=== PATIENT | female | born 1985 | race Caucasian/White ===

== ENCOUNTER 2016-05-12 00:35 | Inpatient (IN) ==
[2016-05-12 01:04] LABS: Bilirubin,Urine Small (Negative); Blood,Urine Negative (Negative); Clarity,Urine Cloudy (Clear); Color,Urine Yellow (Yellow); Glucose,Urine (UA) Normal (Normal); Ketones,Urine Negative (Negative); Leukocyte Esterase,Urine Negative (Negative); Nitrite,Urine Negative (Negative); Protein,Urine Negative (Neg-Trace); Specific Gravity,Urine 1.025 (1.010-1.025); Urobilinogen,Urine Normal (Normal)
[2016-05-12 01:06] LABS: Bacteria,Urine None Seen per hpf (None-Few); Squamous Epithelial Cell,Urine Many per lpf (None-Few)
[2016-05-12 01:09] LABS: Amphetamine Screen,Urine Negative ng/mL (Cutoff=1000); Barbiturate Screen,Urine Negative ng/mL (Cutoff=200); Benzodiazepines Screen,Urine Negative ng/mL (Cutoff=200); Cannabinoid Screen,Urine Positive ng/mL (Cutoff = 50); Cocaine Screen,Urine Negative ng/mL (Cutoff= 300); Opiate Screen,Urine Negative ng/mL (Cutoff=300); Phencyclidine Screen,Urine Negative ng/mL (Cutoff=25)
[2016-05-12 01:18] LABS: Calcium Oxalate Crystals,Urine Present; Hyaline Casts,Urine None Seen per lpf (None-Few); Mucus,Urine Few (Few)
[2016-05-12 01:19] LABS: Basophils # 0.1 K/mcL (0.0-0.2); Basophils % 0.6 %; Eosinophils # 0.1 K/mcL (0.0-0.6); Eosinophils % 0.3 %; Hematocrit 39.4 % (35.3-44.9); Hemoglobin 13.4 g/dL (11.5-15.4); Immature Granulocytes % 0.6 % (0-4); Immature Platelets 4.2 % (1.1-6.1); Lymphocytes # 2.9 K/mcL (0.6-4.6); Lymphocytes % 17.7 %; Mean Corpuscular Hemoglobin 32.4 pg (28.0-33.3); Mean Corpuscular Volume 95.4 fL (83.0-100.0); Mean Platelet Volume 9.9 fL (9.4-12.4); Monocytes # 0.8 K/mcL (0.0-1.3); Neutrophils # 12.3 K/mcL (1.6-8.9); Platelet Count 320 K/mcL (140-400); Red Blood Count 4.13 M/mcL (3.82-4.97); Red Cell Distribution Width 13.2 % (11.5-14.5); Segmented Neutrophils % 75.8 %
[2016-05-12 01:33] LABS: BUN/Creatinine Ratio 23 (6-26); Blood Urea Nitrogen 14 mg/dL (7-20); Calcium 9.3 mg/dL (8.6-10.8); Carbon Dioxide 24 mEq/L (19-29); Chloride 104 mEq/L (98-109); Glucose 98 mg/dL (70-99); Osmolality,Calculated 288 (280-300); Potassium 3.4 mEq/L (3.5-4.5); Sodium 139 mEq/L (136-145); eGFR For African Americans > 60 (> 60); eGFR For Non-African Americans > 60 (> 60)
[2016-05-12 01:34] LABS: Acetaminophen < 1.0 mcg/mL (10-30); Ethanol < 10 mg/dL (0-10); Salicylate < 5.0 mg/dL (15-30)
--- NOTE | 2016-05-12 02:30 | Emergency Department Note ---
Disposition Clinical Impression: Acute psychosis, Suicidal ideation, Paranoia Disposition: Admitted As Inpatient Condition: Fair Time of Disposition: 04:15 Psych HPI - General Chief Complaint: ED Psychiatric Symptoms Stated Complaint: "Hearing Voices/Seeing Things/Out of Meds" Time Seen by Provider: 05/12/16 01:07 Source: patient Mode of arrival: ambulatory Limitations: no limitations Nursing Notes Reviewed: Yes Vital Signs Reviewed: Yes - History of Present Illness HPI Narrative: 30-year-old female history of depression presents to ED with suicidal ideation. Reports over the past several days she has been more depressed and currently is fed up with life. States she just wants to . She has no plan. Attempted suicide at the age of 16 taking multiple medications. Denies any access of guns at home. Reports issues with child custody. Her kids stay with her father more than with her. She also reports hearing voices but they are not telling her to herself. No history of this before. Denies any recent recreational drug use. She last used meth but was unsure of when. Believes it was more than 3 weeks ago. She is prescribed medications for depression but has not been taking it for the past several months. She is unable to tell me that the physician who prescribed it to her or the medications that she takes. She also reports losing track of time and associates this to her drug abuse in the past which includes cocaine, crack, heroin, meth. She otherwise denies any other physical complaints such as the recent illness, fevers, chest pain, shortness of breath, abdominal pain, or urinary symptoms. Denies any alcohol use today. Denies any overdosing on other medications. Pt complaint: suicidal ideation - Related Data Home Medications Medication Instructions Recorded Confirmed Buprenorphine HCl/Naloxone HCl 1 tab SL DAILY 06/07/15 08/11/15 [Suboxone 2 mg-0.5 mg Sl Film] Alprazolam [Xanax 1 MG Tablet] 1 mg PO TID 08/11/15 08/11/15 Dicyclomine [Bentyl] 20 mg PO QID 08/11/15 08/11/15 Previous Rx's Medication Instructions Recorded Promethazine [Phenergan] 25 mg PO Q6HR #10 tablet 08/14/15 Allergies Allergy/AdvReac Type Severity Reaction Status Date / Time Amoxicillin [From Amoxil] Allergy Rash Verified 05/12/16 00:45 haloperidol [From Haldol] Allergy Rash Verified 05/12/16 00:45 ketorolac [From Toradol] Allergy Rash Verified 05/12/16 00:45 Penicillins [PCN] Allergy Rash Verified 05/12/16 00:45 All systems ED: reviewed and negative except as stated. Constitutional: Denies: fever, chills Cardiovascular: Denies: chest pain Respiratory: Denies: cough, dyspnea Gastrointestinal: Denies: abdominal pain Genitourinary: Denies: urgency, dysuria Musculoskeletal: Denies: back pain, neck pain Neurological: Denies: headache Psychiatric: Reports: depression, suicidal thoughts, auditory hallucinations. Denies: homicidal thoughts Past Medical History - Past Medical History Attestation: Yes The following information was validated with the patient. Source: patient Medical history: Reports: asthma, other Surgical history: Reports: no surgical history Psychiatric history: Reports: anxiety, bipolar, depression [employer] history: Reports: endometriosis, other - Social History Smoking Status: Current every day smoker Smokeless Tobacco Status: No Alcohol use: Reports: none Drug use: Reports: marijuana, IVDU Physical Exam - General Limitations: no limitations General appearance: alert, in no apparent distress - Head Head exam: atraumatic, normocephalic, normal inspection - Eye Eye exam: Present: normal appearance, PERRL, EOMI - ENT ENT exam: normal exam, normal oropharynx, mucous membranes moist - Neck Neck exam: Present: normal inspection, full ROM, trachea midline - Chest Chest inspection: Present: normal inspection, symmetric chest wall rise - Respiratory Respiratory exam: Present: normal lung sounds bilaterally. Absent: respiratory distress, wheezes - Cardiovascular Cardiovascular exam: Present: regular rate, normal rhythm, normal heart sounds. Absent: systolic murmur, diastolic murmur - Abdominal Exam Abdominal exam: Present: soft, Non-Tender, normal bowel sounds. Absent: tenderness, distention, guarding, rebound, rigidity - Extremities Exam Extremities exam: Present: normal inspection, full ROM, normal capillary refill , other (Ecchymosis to the left calf from prior injury 1 month ago). Absent: tenderness, pedal edema, calf tenderness - Back Exam Back exam: Present: normal inspection, full ROM. Absent: tenderness, CVA tenderness (R), CVA tenderness (L), vertebral tenderness - Neurological Exam Neurological exam: Present: alert, oriented X3, CN II-XII intact - Expanded Neurological Exam Patient oriented to: Present: person, place, time Speech: Present: fluid speech Cranial nerves: EOM function (II, III, IV, ): Normal, facial sensation (V): Normal, facial palsy (VII): Normal, gag reflex (IX): Normal, spinal accessory function (XI): Normal, tongue deviation (XII): Normal Motor strength - LUE: 5/5 Motor strength - RUE: 5/5 Motor strength - LLE: 5/5 Motor strength - RLE: 5/5 - Psychiatric Psychiatric exam: Present: normal affect, depressed, anxious - Skin Skin exam: Present: warm, dry, intact, normal color Course Course Narrative: 30-year-old female presents with depression and suicidal ideation. Reports this has been ongoing for past several days. She is finally fed up with it would like to get help. Reports being admitted here in the hospital in the past. She is otherwise no acute distress. Lungs are clear auscultation bilaterally. Abdomen soft nontender nondistended. She moves all 4 extremities without any difficulty. We will get medical clearance and consult 1-A. She is cooperative and in agreement with plan. - Reevaluation(s) Reevaluation #1: Urine is positive for marijuana. Urine is not consistent with infection. Labs are otherwise unremarkable. She does have a mild leukocytosis but does not have any obvious signs of infection. She is afebrile. She is appropriate for 1 -A consultation for suicidal thoughts. Time: 02:34 Reevaluation #2: 1-A is at bedside for assessment Time: 03:46 - Consultations Consultation #1: 1-A plans to admit patient for SI, paranoia, and psychosis. Admission placed. Time: 04:15 Vital Signs Temperature 98.3 F 05/12/16 00:37 Pulse Rate 94 05/12/16 00:37 Respiratory Rate 16 05/12/16 00:37 Blood Pressure 144/92 05/12/16 00:37 O2 Sat by Pulse Oximetry 98 05/12/16 00:37 Temperature 97.9 F 05/12/16 04:32 Pulse Rate 99 05/12/16 04:32 Respiratory Rate 16 05/12/16 04:32 Blood Pressure 167/119 05/12/16 04:32 O2 Sat by Pulse Oximetry 98 05/12/16 00:37 Oxygen Delivery Oxygen Delivery Room Air Psych - Medical Records Medical records reviewed: Yes I reviewed the patient's medical records. - Lab Data Lab results reviewed: Yes I reviewed the patient's lab results. Result diagrams: 05/12/16 01:11 05/12/16 01:11 Lab Results 05/12/16 05/12/16 05/12/16 Range/Units 00:55 00:55 00:55 WBC (4.3-11.1) K/mcL RBC (3.82-4.97) M/mcL Hgb (11.5-15.4) g/dL Hct (35.3-44.9) % MCV (83.0-100.0) fL MCH (28.0-33.3) pg MCHC (31.6-35.5) g/dL RDW (11.5-14.5) % Plt Count (140-400) K/mcL MPV (9.4-12.4) fL Immature Gran % (0-4) % Seg Neutrophils % % Lymphocytes % % Monocytes % % Eosinophils % % Basophils % % Neutrophils # (1.6-8.9) K/mcL Lymphocytes # (0.6-4.6) K/mcL Monocytes # (0.0-1.3) K/mcL Eosinophils # (0.0-0.6) K/mcL Basophils # (0.0-0.2) K/mcL Immature Plt Fraction (1.1-6.1) % Sodium (136-145) mEq/L Potassium (3.5-4.5) mEq/L Chloride (98-109) mEq/L Carbon Dioxide (19-29) mEq/L BUN (7-20) mg/dL Creatinine (0.57-1.11) mg/dL Est GFR ( Amer) (> 60) Est GFR (Non-Af Amer) (> 60) BUN/Creatinine Ratio (6-26) Glucose (70-99) mg/dL Calculated Osmolality (280-300) Calcium (8.6-10.8) mg/dL Urine Color Yellow (Yellow) Urine Clarity Cloudy A (Clear) Urine pH 6.0 (5.0-8.0) pH Units Ur Specific [place] 1.025 (1.010-1.025) Urine Protein Negative (Neg-Trace) mg/dL Urine Glucose (UA) Normal (Normal) mg/dL Urine Ketones Negative (Negative) mg/dL Urine Blood Negative (Negative) Urine Nitrite Negative (Negative) Urine Bilirubin Small H (Negative) Urine Urobilinogen Normal (Normal) mg/dL Ur Leukocyte Esterase Negative (Negative) Urine Microscopic RBC 3-5 H (0-3) per hpf Urine Microscopic WBC 3-5 H (0-3) per hpf Ur Squamous Epith Cells Many H (None-Few) per lpf Calcium Oxalate Crystal Present Urine Bacteria None Seen (None-Few) per hpf Hyaline Casts None Seen (None-Few) per lpf Urine Mucus Few (Few) Urine Test Negative (Negative) Salicylates (15-30) mg/dL Urine Opiates Screen Negative (Lfrjpe=970) ng/mL Acetaminophen (10-30) mcg/mL Ur Barbiturates Screen Negative (Xkviec=572) ng/mL Ur Phencyclidine Scrn Negative (Cutoff=25) ng/mL Ur Amphetamines Screen Negative (Qcxqwj=6519) ng/mL U Benzodiazepines Scrn Negative (Uddbmm=496) ng/mL Urine Cocaine Screen Negative (Cutoff= 300) ng/mL U Marijuana (THC) Screen Positive H (Cutoff = 50) ng/mL Ethyl Alcohol (0-10) mg/dL 05/12/16 05/12/16 Range/Units 01:11 01:11 WBC 16.3 H (4.3-11.1) K/mcL RBC 4.13 (3.82-4.97) M/mcL Hgb 13.4 (11.5-15.4) g/dL Hct 39.4 (35.3-44.9) % MCV 95.4 (83.0-100.0) fL MCH 32.4 (28.0-33.3) pg MCHC 34.0 (31.6-35.5) g/dL RDW 13.2 (11.5-14.5) % Plt Count 320 (140-400) K/mcL MPV 9.9 (9.4-12.4) fL Immature Gran % 0.6 (0-4) % Seg Neutrophils % 75.8 % Lymphocytes % 17.7 % Monocytes % 5.0 % Eosinophils % 0.3 % Basophils % 0.6 % Neutrophils # 12.3 H (1.6-8.9) K/mcL Lymphocytes # 2.9 (0.6-4.6) K/mcL Monocytes # 0.8 (0.0-1.3) K/mcL Eosinophils # 0.1 (0.0-0.6) K/mcL Basophils # 0.1 (0.0-0.2) K/mcL Immature Plt Fraction 4.2 (1.1-6.1) % Sodium 139 (136-145) mEq/L Potassium 3.4 L (3.5-4.5) mEq/L Chloride 104 (98-109) mEq/L Carbon Dioxide 24 (19-29) mEq/L BUN 14 (7-20) mg/dL Creatinine 0.62 (0.57-1.11) mg/dL Est GFR ( Amer) > 60 (> 60) Est GFR (Non-Af Amer) > 60 (> 60) BUN/Creatinine Ratio 23 (6-26) Glucose 98 (70-99) mg/dL Calculated Osmolality 288 (280-300) Calcium 9.3 (8.6-10.8) mg/dL Urine Color (Yellow) Urine Clarity (Clear) Urine pH (5.0-8.0) pH Units Ur Specific [place] (1.010-1.025) Urine Protein (Neg-Trace) mg/dL Urine Glucose (UA) (Normal) mg/dL Urine Ketones (Negative) mg/dL Urine Blood (Negative) Urine Nitrite (Negative) Urine Bilirubin (Negative) Urine Urobilinogen (Normal) mg/dL Ur Leukocyte Esterase (Negative) Urine Microscopic RBC (0-3) per hpf Urine Microscopic WBC (0-3) per hpf Ur Squamous Epith Cells (None-Few) per lpf Calcium Oxalate Crystal Urine Bacteria (None-Few) per hpf Hyaline Casts (None-Few) per lpf Urine Mucus (Few) Urine Test (Negative) Salicylates < 5.0 L (15-30) mg/dL Urine Opiates Screen (Zihvdn=784) ng/mL Acetaminophen < 1.0 L (10-30) mcg/mL Ur Barbiturates Screen (Ayrufo=058) ng/mL Ur Phencyclidine Scrn (Cutoff=25) ng/mL Ur Amphetamines Screen (Wfepqj=2622) ng/mL U Benzodiazepines Scrn (Wegteo=918) ng/mL Urine Cocaine Screen (Cutoff= 300) ng/mL U Marijuana (THC) Screen (Cutoff = 50) ng/mL Ethyl Alcohol < 10 (0-10) mg/dL Psychiatric Medical Clearance - Medical Clearance Checklist Medical History: No Social History Section defined Current Vitals: Last Vital Signs Temp 97.9 F 05/12/16 04:32 Pulse 99 05/12/16 04:32 Resp 16 05/12/16 04:32 BP 167/119 05/12/16 04:32 Pulse Ox 98 05/12/16 00:37 Psychiatric Lab Panel: Drug Levels and Toxicity 05/12/16 05/12/16 00:55 01:11 Urine Opiates Screen Negative Acetaminophen < 1.0 L Ur Barbiturates Screen Negative Ur Phencyclidine Scrn Negative Ur Amphetamines Screen Negative U Benzodiazepines Scrn Negative Urine Cocaine Screen Negative U Marijuana (THC) Screen Positive H Ethyl Alcohol < 10 Abnormal Labs: Abnormal lab results WBC 16.3 K/mcL (4.3-11.1) H 05/12/16 01:11 Neutrophils # 12.3 K/mcL (1.6-8.9) H 05/12/16 01:11 Potassium 3.4 mEq/L (3.5-4.5) L 05/12/16 01:11 Urine Clarity Cloudy (Clear) A 05/12/16 00:55 Urine Bilirubin Small (Negative) H 05/12/16 00:55 Urine Microscopic RBC 3-5 per hpf (0-3) H 05/12/16 00:55 Urine Microscopic WBC 3-5 per hpf (0-3) H 05/12/16 00:55 Ur Squamous Epith Cells Many per lpf (None-Few) H 05/12/16 00:55 Salicylates < 5.0 mg/dL (15-30) L 05/12/16 01:11 Acetaminophen < 1.0 mcg/mL (10-30) L 05/12/16 01:11 U Marijuana (THC) Screen Positive ng/mL (Cutoff = 50) H 05/12/16 00:55 Statement of Medical Clearance: I have evaluated the patient, reviewed diagnostic information, and certify that the patient's medical condition is sufficiently stable that transfer to the psychiatric unit does not pose a significant risk of deterioration. Attestation Statement - Attestation Attestation: I, Jim Mario MD, personally performed a history and physical exam of the patient and discussed their management with the resident. I reviewed the resident's note and agree with the documented findings, medical decision making , and plan of care. 30-year-old female process to the emergency department with a complaint that she is out of her medications and she is having auditory hallucinations. She complains of being extremely paranoid. She has had suicidal thoughts but no definite plan or attempt. On examination patient is a well-developed well-nourished female in no acute distress. She is alert and oriented 3. There is no cyanosis or diaphoresis. She is cooperative but appears extremely anxious and paranoid. Breath sounds are clear and equal bilaterally. Heart regular rate and rhythm. Abdomen soft and nontender with normal bowel sounds. No gross focal neurological deficits. Skin is warm and dry with good color. Labs reviewed. 1A psych service was consulted and evaluated patient in the emergency department and patient is being admitted to .
[2016-05-12] MEDS ORDERED: hydrOXYzine pamoate 25 MG CAPSULE PO PRN (04:20)
[2016-05-12] MEDS ORDERED: Mag Hydrox/Al Hydrox/Simeth 30 ML UDC PO PRN (04:20)
[2016-05-12] MEDS ORDERED: MOM Conc 10 ML UD.LIQ PO PRN (04:20)
[2016-05-12] MEDS ORDERED: *HR* LORazepam 1 MG TABLET PO PRN (04:20)
[2016-05-12] MEDS ORDERED: traZODone 50 MG TABLET PO PRN (04:20)
[2016-05-12] MEDS ORDERED: *HR* LORazepam 2 MG/ML VIAL IM PRN (04:20)
[2016-05-12] MEDS ORDERED: Ibuprofen 400 MG TABLET PO PRN (04:20)
[2016-05-12] MEDS ORDERED: Ziprasidone 20 MG CAPSULE PO PRN (04:24)
[2016-05-12] MEDS ORDERED: Ziprasidone injection 20 MG/ML VIAL IM PRN (04:24)
[2016-05-12] MEDS: Nicotine 21 MG PATCH.TD24 TD SCH ×2 (08:56→11:13)
[2016-05-12] MEDS: Vitamin B Complex/Vit C/Vit E 1 EACH TABLET PO SCH (08:56)
--- NOTE | 2016-05-12 12:11 | Psychiatry History & Physical ---
Date of Encounter: 05/12/16 Time of Encounter: 12:09 History of Present Illness Patient Stated Chief Complaint: Suicidal, I need my medication Medicare Admission Attestation: For traditional Medicare patients the provided hospital inpatient services are reasonable and necessary and in the case of services not specified as inpatient -only under 42 CFR 419.22 (n), that they are appropriately provided as inpatient services in accordance 42 CFR 412.3. For Critical [facility] the patient may reasonably be expected to be discharged or transferred to a hospital within 96 hours after admission to the Critical [facility]. Admitted From: Emergency Dept History of Present Illness: Ms. Lorenzana is a 30 year old female admitted from the emergency department for evaluation suicidal ideation and auditory hallucination depending on compliance with treatment and medication. Patient has a history of psychiatric treatment and substance abuse and was admitted to this hospital in 2005 was diagnosis of polysubstance dependence including heroin Vicodin and Xanax, cannabis and cocaine subcutaneous also personality disorder and she was stabilized and discharged on medication but did not follow or comply. She was diagnosed with mood disorder and was treated was Risperdal and trazodone. Patient has history of aggressive behavior and violence she was agitated in emergency room verbally abusive to staff and when she was admitted to unit she was throwing chairs and windows and needed to be medicated and monitored one-on-one. To keep her safe. She was uncooperative was assessment and would not answer questions and become irritable and impulsive. Past Med Surg Social Fam HX - Past Medical History Medical history: asthma, other - Past Psychiatric History Psychiatric history: Reports: bipolar, previous psychiatric hospitalization, other (Substance abuse, opiates, marijuana, benzodiazepine, methamphetamine) Past psychiatric history details: Hospitalized 12/28/2005 for mood disorder and polysubstance dependence Family psychiatric history: Unknown Family History of Suicide: Unknown - Past Surgical History Surgical History: no surgical history - Social History Smoking Status: Current every day smoker Smokeless Tobacco Status: No Alcohol use: none Drug use: marijuana, IVDU Medications & Allergies Alprazolam [Xanax 1 MG Tablet] 1 mg PO TID 08/11/15 [History] Allergies Amoxicillin [From Amoxil] Allergy (Verified 05/12/16 00:45) Rash haloperidol [From Haldol] Allergy (Verified 05/12/16 00:45) Rash ketorolac [From Toradol] Allergy (Verified 05/12/16 00:45) Rash Penicillins [PCN] Allergy (Verified 05/12/16 00:45) Rash Review of Systems Psychiatric: Reports: suicidal ideation, auditory hallucinations, mood swings Mental Status Exam Patient orientation: Yes Person, Yes Place Level of alertness: Sedated Patient appearance: Unkempt, Disheveled Behavior: anxious, agitated, hostile, uncooperative, suspicious, impulsive Psychomotor activity: Increased Eye contact: Fleeting Contact Mood description: Anxious, Labile, Irritable Affect description: labile, dysphoric, anxious Speech pattern: Normal rate, Normal rhythm, Normal tone, Limited Speech volume: Normal Thought process: Circumstantial, Tangential, Thought Blocking, Slowed Thinking Thought content: Yes Suicidal ideation, No Homicidal ideation, No Overt delusions, Yes Paranoid delusion Perceptual disturbances: Yes Auditory hallucinations, No Visual hallucinations Attention span: Unable to Focus Memory description: Immediate Impaired, Recent Impaired, Remote Impaired Patient reliability: Not Reliable Historian Intelligence estimate: Average Judgment: Limited Insight: Partial Results - Vital Signs Vital signs: Temp Pulse Resp BP Pulse Ox 98.2 F 87 18 131/95 98 05/12/16 09:00 05/12/16 09:00 05/12/16 09:00 05/12/16 09:00 05/12/16 00:37 - Labs Labs: Laboratory Last Values WBC 16.3 K/mcL (4.3-11.1) H 05/12/16 01:11 RBC 4.13 M/mcL (3.82-4.97) 05/12/16 01:11 Hgb 13.4 g/dL (11.5-15.4) 05/12/16 01:11 Hct 39.4 % (35.3-44.9) 05/12/16 01:11 MCV 95.4 fL (83.0-100.0) 05/12/16 01:11 MCH 32.4 pg (28.0-33.3) 05/12/16 01:11 MCHC 34.0 g/dL (31.6-35.5) 05/12/16 01:11 RDW 13.2 % (11.5-14.5) 05/12/16 01:11 Plt Count 320 K/mcL (140-400) 05/12/16 01:11 MPV 9.9 fL (9.4-12.4) 05/12/16 01:11 Immature Gran % 0.6 % (0-4) 05/12/16 01:11 Seg Neutrophils % 75.8 % 05/12/16 01:11 Lymphocytes % 17.7 % 05/12/16 01:11 Monocytes % 5.0 % 05/12/16 01:11 Eosinophils % 0.3 % 05/12/16 01:11 Basophils % 0.6 % 05/12/16 01:11 Neutrophils # 12.3 K/mcL (1.6-8.9) H 05/12/16 01:11 Lymphocytes # 2.9 K/mcL (0.6-4.6) 05/12/16 01:11 Monocytes # 0.8 K/mcL (0.0-1.3) 05/12/16 01:11 Eosinophils # 0.1 K/mcL (0.0-0.6) 05/12/16 01:11 Basophils # 0.1 K/mcL (0.0-0.2) 05/12/16 01:11 Immature Plt Fraction 4.2 % (1.1-6.1) 05/12/16 01:11 Sodium 139 mEq/L (136-145) 05/12/16 01:11 Potassium 3.4 mEq/L (3.5-4.5) L 05/12/16 01:11 Chloride 104 mEq/L (98-109) 05/12/16 01:11 Carbon Dioxide 24 mEq/L (19-29) 05/12/16 01:11 BUN 14 mg/dL (7-20) 05/12/16 01:11 Creatinine 0.62 mg/dL (0.57-1.11) 05/12/16 01:11 Est GFR ( Amer) > 60 (> 60) 05/12/16 01:11 Est GFR (Non-Af Amer) > 60 (> 60) 05/12/16 01:11 BUN/Creatinine Ratio 23 (6-26) 05/12/16 01:11 Glucose 98 mg/dL (70-99) 05/12/16 01:11 Calculated Osmolality 288 (280-300) 05/12/16 01:11 Calcium 9.3 mg/dL (8.6-10.8) 05/12/16 01:11 Urine Color Yellow (Yellow) 05/12/16 00:55 Urine Clarity Cloudy (Clear) A 05/12/16 00:55 Urine pH 6.0 pH Units (5.0-8.0) 05/12/16 00:55 Ur Specific [place]va 1.025 (1.010-1.025) 05/12/16 00:55 Urine Protein Negative mg/dL (Neg-Trace) 05/12/16 00:55 Urine Glucose (UA) Normal mg/dL (Normal) 05/12/16 00:55 Urine Ketones Negative mg/dL (Negative) 05/12/16 00:55 Urine Blood Negative (Negative) 05/12/16 00:55 Urine Nitrite Negative (Negative) 05/12/16 00:55 Urine Bilirubin Small (Negative) H 05/12/16 00:55 Urine Urobilinogen Normal mg/dL (Normal) 05/12/16 00:55 Ur Leukocyte Esterase Negative (Negative) 05/12/16 00:55 Urine Microscopic RBC 3-5 per hpf (0-3) H 05/12/16 00:55 Urine Microscopic WBC 3-5 per hpf (0-3) H 05/12/16 00:55 Ur Squamous Epith Cells Many per lpf (None-Few) H 05/12/16 00:55 Calcium Oxalate Crystal Present 05/12/16 00:55 Urine Bacteria None Seen per hpf (None-Few) 05/12/16 00:55 Hyaline Casts None Seen per lpf (None-Few) 05/12/16 00:55 Urine Mucus Few (Few) 05/12/16 00:55 Urine Test Negative (Negative) 05/12/16 00:55 Salicylates < 5.0 mg/dL (15-30) L 05/12/16 01:11 Urine Opiates Screen Negative ng/mL (Rejlzv=680) 05/12/16 00:55 Acetaminophen < 1.0 mcg/mL (10-30) L 05/12/16 01:11 Ur Barbiturates Screen Negative ng/mL (Glkpbj=848) 05/12/16 00:55 Ur Phencyclidine Scrn Negative ng/mL (Cutoff=25) 05/12/16 00:55 Ur Amphetamines Screen Negative ng/mL (Dajwgk=0399) 05/12/16 00:55 U Benzodiazepines Scrn Negative ng/mL (Iozllj=408) 05/12/16 00:55 Urine Cocaine Screen Negative ng/mL (Cutoff= 300) 05/12/16 00:55 U Marijuana (THC) Screen Positive ng/mL (Cutoff = 50) H 05/12/16 00:55 Ethyl Alcohol < 10 mg/dL (0-10) 05/12/16 01:11 Assessment and Plan (1) Mood disorder with psychosis Current visit: Yes Status: Acute Plan: Admit inpatient for safety and stabilization, Close observation, Suicide Precautions per unit protocol, Encourage participation in unit milieu, Group Therapy, Monitor sleep, Monitor appetite Additional Plan: Chetan verify medication from the pharmacy and restarted them. Patient is uncooperative and agitated and she would be kept safe by one on one monitor. Medical complaints would be addressed by medical consult. Risks, benefits, side effects, alternatives discussed w/pt: Yes Patient agreeable to treatment: No (Uncooperative and agitated) Estimated Length of Stay (Days): 5 (2) Polysubstance dependence including opioid type drug, continuous use Current visit: Yes Status: Acute Plan: Admit inpatient for safety and stabilization, Close observation, Suicide Precautions per unit protocol, Encourage participation in unit milieu, Group Therapy, Monitor sleep, Monitor appetite Risks, benefits, side effects, alternatives discussed w/pt: Yes Patient agreeable to treatment: No ( Uncooperative and agitated)
[2016-05-12] MEDS ORDERED: Nicotine 2 MG GUM BC PRN (12:51)
[2016-05-12] MEDS: ALPRAZolam 1 MG TABLET PO PRN ×2 (12:54→17:59)
[2016-05-12] MEDS: Gabapentin 400 MG CAPSULE PO SCH ×2 (17:05→21:08)
--- NOTE | 2016-05-12 17:57 | Internal Medicine Consult Note ---
Date of Encounter: 05/12/16 Time of Encounter: 17:54 - Assessment and Plan (1) Right leg pain Current Visit: Yes Status: Acute Assessment and plan: We will obtain right lower extremity venous Doppler to rule out DVT. Patient has a large bruise on the back of her right leg indicating prior trauma which could have caused a DVT. (2) Abdominal pain Current Visit: No Status: Acute Assessment and plan: Patient reports what appears to be chronic abdominal pain, possibly related to menses. We will monitor. I will obtain LFTs and lipase level. Abdominal exam is benign, we will continue to monitor. No imaging needed at this time. Qualifiers: Abdominal location: generalized Qualified Code(s): R10.84 - Generalized abdominal pain (3) DVT prophylaxis Current Visit: No Status: Acute Assessment and plan: Ambulate in the hallway (4) Acute psychosis Current Visit: Yes Status: Acute Assessment and plan: Management per psychiatry. (5) Tobacco abuse Current Visit: Yes Status: Acute Assessment and plan: She is receiving nicotine replacement therapy. Internal Medicine - CN: HPI - Data of Consult Patient: new to practice Consult date: 05/12/16 Requesting Physician: Theodore Fortune MD - Consult Narrative Reason for consult: Leg pain History of present illness: Ms. Lorenzana is a 30 year old female admitted to the psychiatric service for suicidal ideation. Today she complained of right lower extremity pain. The patient is currently awake and interactive but quite sedated and therefore history obtained from the patient is limited. She says that she has severe pain in the right lower leg. She has had it for 2 weeks ever since she bumped her leg against a metal object. She noted some mild associated swelling. She also reports lower abdominal pain which she described to the nurse as if she was going to get her period. She reports burning with urination. Denies nausea vomiting diarrhea. A 10 point review of systems was limited by patient's sedation. Per psychiatric documentation the patient was agitated and belligerent and she required sedation. Family history was limited due to sedation Social history patient denies alcohol, admits to smoking one pack of cigarettes a day. Past Med Surg Social Fam HX - Past Medical History Medical history: asthma, other Psychiatric history: bipolar, previous psychiatric hospitalization, other ( Substance abuse, opiates, marijuana, benzodiazepine, methamphetamine) - Past Surgical History Surgical History: no surgical history - Social History Smoking Status: Current every day smoker Smokeless Tobacco Status: No Alcohol use: none Drug use: marijuana, IVDU Internal Medicine - CN: Meds Alprazolam [Xanax 1 MG Tablet] 1 mg PO BID 08/11/15 [History] Alprazolam [Xanax 1 MG Tablet] 1.5 mg PO HS 05/12/16 [History] Dicyclomine [Bentyl] 20 mg PO QID PRN 05/12/16 [History] Gabapentin [Neurontin] 800 mg PO TID 05/12/16 [History] HydrOXYzine Pamoate [Vistaril] 50 mg PO Q6H PRN 05/12/16 [History] Allergies Amoxicillin [From Amoxil] Allergy (Verified 05/12/16 00:45) Rash haloperidol [From Haldol] Allergy (Verified 05/12/16 00:45) Rash ketorolac [From Toradol] Allergy (Verified 05/12/16 00:45) Rash Penicillins [PCN] Allergy (Verified 05/12/16 00:45) Rash Internal Medicine - CN: Exam - Constitutional Vitals: Temp Pulse Resp BP Pulse Ox 98.2 F 87 18 131/95 98 05/12/16 09:00 05/12/16 09:00 05/12/16 09:00 05/12/16 09:00 05/12/16 00:37 General appearance IM: Present: A&O X 3 Exam: Appears sluggish and sedated - Head Head exam: Present: atraumatic - Eye Eye exam: Present: EOMI, PERRL. Absent: scleral icterus - Cardiovascular Cardiovascular exam IM: Present: RRR, +S1, +S2. Absent: systolic murmur - GI/Abdominal GI/Abdominal exam IM: Present: normal bowel sounds, soft, no peritoneal signs. Absent: hepatomegaly, mass, rebound - Additional comments: No suprapubic tenderness - Extremities Exam Extremities exam IM: Present: calf tenderness (Right calf tenderness palpation. A 6 x 4 cm bruise is present on the right lower leg.) Internal Medicine - CN: Reslt - Labs CBC & Chem 7: 05/12/16 01:11 05/12/16 01:11 Consult Discharge Plan - Plan Referrals: NO,PCP [Primary Care Provider] -
[2016-05-12 19:11] LABS: Albumin/Globulin Ratio 1.3 (1.1-2.2); Bilirubin,Direct 0.2 mg/dL (0.0-0.5); Bilirubin,Indirect 0.6 mg/dL (0.0-1.2); Bilirubin,Total 0.8 mg/dL (0.2-1.2); Globulin 3.2 g/dL (2.4-3.5); Total Protein 7.2 g/dL (6.0-8.3)
[2016-05-12 23:18] LABS: Bilirubin,Urine Small (Negative); Blood,Urine Negative (Negative); Clarity,Urine Cloudy (Clear); Color,Urine Dark Yellow (Yellow); Glucose,Urine (UA) Normal (Normal); Ketones,Urine Negative (Negative); Leukocyte Esterase,Urine Negative (Negative); Nitrite,Urine Negative (Negative); Protein,Urine Trace mg/dL (Neg-Trace); Specific Gravity,Urine 1.025 (1.010-1.025); Urobilinogen,Urine Normal (Normal)
[2016-05-12 23:20] LABS: Bacteria,Urine Moderate per hpf (None-Few); Squamous Epithelial Cell,Urine Many per lpf (None-Few)
[2016-05-13] MEDS: ALPRAZolam 1 MG TABLET PO PRN ×2 (04:57→10:38)
[2016-05-13] MEDS: Vitamin B Complex/Vit C/Vit E 1 EACH TABLET PO SCH (08:32)
[2016-05-13 09:25] VITALS: BP 115/83
--- NOTE | 2016-05-13 11:37 | Discharge Summary ---
Date of Encounter: 05/13/16 Time of Encounter: 11:30 Diagnosis - Discharge Diagnosis (1) Mood disorder with psychosis Status: Acute (2) Polysubstance dependence including opioid type drug, continuous use Status: Acute Medications - Discharge Medications Prescriptions: Alprazolam [Xanax 1 MG Tablet] 1 mg PO BID #30 tablet Gabapentin [Neurontin] 600 mg PO BID #60 capsule HydrOXYzine Pamoate [Vistaril] 50 mg PO Q6H PRN #60 capsule PRN Reason: Anxiety Dicyclomine [Bentyl] 20 mg PO QID PRN 05/12/16 [History] Alprazolam [Xanax 1 MG Tablet] 1 mg PO BID #30 tablet 05/13/16 [Rx] Gabapentin [Neurontin] 600 mg PO BID #60 capsule 05/13/16 [Rx] HydrOXYzine Pamoate [Vistaril] 50 mg PO Q6H PRN #60 capsule 05/13/16 [Rx] Vitamin B Complex/Vit C/Vit E [Stresstab] 1 each PO DAILY tablet 05/13/16 [Rx] Allergies Amoxicillin [From Amoxil] Allergy (Verified 05/12/16 00:45) Rash haloperidol [From Haldol] Allergy (Verified 05/12/16 00:45) Rash ketorolac [From Toradol] Allergy (Verified 05/12/16 00:45) Rash Penicillins [PCN] Allergy (Verified 05/12/16 00:45) Rash Results Procedures and tests throughout hospitalization: Completed Lab Orders Category Date Time Status LFTs [Hepatic Panel] Stat Lab 05/12/16 18:31 Completed Lipase Stat Lab 05/12/16 18:31 Completed Urinalysis Reflex Cult & Micro [URIN] Stat Lab 05/12/16 22:17 Completed Provider Date of admission: 05/12/16 04:17 Primary care physician: PCP NO Discharging clinician: Theodore Fortune Assessment and Plan - Patient/Caregiver Discharge Instructions Activity: resume usual activities as tolerated Diet: regular diet - Follow up Plan Follow up with: Richi Matthew [Outside] - 05/22/16 1:00 pm (The above appointment is with Elizabeth Flores, counselor. When you come to your first appointment, you will have an orientation to the agency and you will meet with a counselor. Please bring the following with you to your first visit to the clinic: 1) proof of household income (two consecutive pay stubs, social security award letter, bank statement, statement letter from [facility], child support statement, IRS 1040 or W2 form, or a statement from the person who financially supports you stating they help provide for your basic needs), 2) proof of residency (drivers license, a piece of mail showing your address, a statement from person you live with verifying you live at their address), 3) your social security number, and 4) your insurance card (if you have commercial insurance you must call to obtain a prior authorization number before you arrive to your first appointment). If you do not bring these items, you will not be seen.) Pedro Long, PAC [Physician Crew Lead] - (The above appointment is with Pedro Long.) Functional capacity at discharge: independent ambulation Overall status at discharge: Stable Disposition: Home, Self-Care Hospital Course Hospital course: Ms. Lorenzana is a 30 year old female admitted from the emergency department for acute psychosis and agitation and paranoia and noncompliance with medication in addition to abusing drugs including methamphetamine and marijuana. For details of admission see h&p On the unit the patient was agitated and destructive, she was out of control required. one on one monitoring and medication to control her behavior. Patient medication review and restarted she was able to sleep became more cooperative she was making some delusional statements and paranoid statements but refused to be placed on antipsychotics. She had some physical complaints that were addressed by medical consult. Prior to discharge patient was medically stable compliant with medication and denied any suicidal ideation or hallucinations and was cooperative and her behavior was appropriate and her discharge plans were completed. Patient reached maximum hospital benefits and was safe to discharge. - Time Spent with Patient Total time spent providing and/or coordinating discharge services: Greater than 30 minutes Quality - Multiple Antipsychotics Patient discharged on 2 or more antipsychotic medications: No Procedures - Procedures Procedures: Medication Management, Crisis Stabilization, Supportive Therapy, Group Therapy, Psychoeducational Therapy Mental Status Exam - Mental Status Exam Patient orientation: Yes Person, Yes Time, Yes Place Level of alertness: Alert Patient appearance: Appropriate, Well Groomed Behavior: calm, cooperative, anxious, hostile, uncooperative Psychomotor activity: Increased Eye contact: Minimal Contact Mood description: Euthymic/stable, Anxious, Labile Affect description: congruent with mood, labile, dysphoric, anxious Speech pattern: Normal rate, Normal rhythm, Normal tone, Limited Speech Volume: Normal Thought process: Circumstantial, Tangential, Thought Blocking Thought Content: No Suicidal ideation, No Homicidal ideation, No Overt delusions Perceptual Disturbances: No Auditory hallucinations, No Visual hallucinations Judgment: Limited Insight: Partial
--- NOTE | 2016-05-13 15:29 | Venous Imaging Report ---
LE Venous Duplex Patient Name:Felisha Lorenzana Order Number:[id number] Procedure Date:05/12/2016 Date:1985Age:30 yrs Gender:Female Location:[facility] Room #: 1A41 Managed Care Provider:Fabienne Jon RDCS Referring MD:Aram Brody MD high school learning support teacher:None Reading MD:Zev Costa MD , FACS Primary Indications:Pain in limb Secondary Indications: Impressions: Right lower extremity: normal superficial and deep exam. Recommendations: Preliminary given to Pt RNKem. Findings Venous Duplex Results: Right: Venous imaging of the lower extremity reveals full patency and normal vessel compressibility of the right superficial femoral, right popliteal, right posterior tibial, right peroneal, right great saphenous and right lesser saphenous. Doppler signals in the evaluated veins were normal. The right distal iliac and right common femoral veins were not assessed. Lower Extremity Venous Duplex Side Vein Compress Spontaneous Flow Augment Diameter (cm) Depth (cm) Right Distal Iliac Right Common Femoral Right Superficial Femoral Normal yes Phasic yes Right Popliteal Normal yes Phasic yes Right Posterior Tibial Normal yes Phasic yes Right Peroneal Normal yes Phasic yes Right Great Saphenous Normal yes Phasic yes Right Lesser Saphenous Normal yes Phasic yes Updated by Zev Costa MD, FACS on 05/13/2016 3:24:54 PM Zev Costa MD electronically signed on 05/13/2016 3:25:18 PM with status of Final
[2016-05-13] MEDS ORDERED: Gabapentin 300 MG CAPSULE PO SCH (21:00)
== END 2016-05-13 13:35 | disposition home or self-care (01) | DRG 754 ==
LOC: EMEROO 00:35 → 1ANU 04:15
PROVIDERS: ADMIT Psychiatry & Neurology Psychiatry; ATTEND Psychiatry & Neurology Psychiatry

== ENCOUNTER 2016-05-19 10:08 | Inpatient (IN) ==
[2016-05-19 10:58] LABS: Bilirubin,Urine Negative (Negative); Blood,Urine Negative (Negative); Clarity,Urine Clear (Clear); Color,Urine Yellow (Yellow); Glucose,Urine (UA) Normal (Normal); Ketones,Urine Negative (Negative); Leukocyte Esterase,Urine Negative (Negative); Nitrite,Urine Negative (Negative); PH,Urine 6.5 pH Units (5.0-8.0); Protein,Urine Negative (Neg-Trace); Specific Gravity,Urine 1.008 (1.010-1.025); Urobilinogen,Urine Normal (Normal)
[2016-05-19 11:05] LABS: Amphetamine Screen,Urine Negative ng/mL (Cutoff=1000); Barbiturate Screen,Urine Negative ng/mL (Cutoff=200); Benzodiazepines Screen,Urine Positive ng/mL (Cutoff=200); Cannabinoid Screen,Urine Positive ng/mL (Cutoff = 50); Cocaine Screen,Urine Negative ng/mL (Cutoff= 300); Opiate Screen,Urine Negative ng/mL (Cutoff=300); Phencyclidine Screen,Urine Negative ng/mL (Cutoff=25)
[2016-05-19 11:10] LABS: Basophils # 0.1 K/mcL (0.0-0.2); Basophils % 0.7 %; Eosinophils % 0.3 %; Hematocrit 41.9 % (35.3-44.9); Hemoglobin 14.4 g/dL (11.5-15.4); Immature Granulocytes % 0.4 % (0-4); Lymphocytes # 1.7 K/mcL (0.6-4.6); Lymphocytes % 17.9 %; Mean Corpuscular HGB Conc 34.4 g/dL (31.6-35.5); Mean Corpuscular Hemoglobin 32.4 pg (28.0-33.3); Mean Corpuscular Volume 94.2 fL (83.0-100.0); Mean Platelet Volume 9.6 fL (9.4-12.4); Monocytes # 0.5 K/mcL (0.0-1.3); Monocytes % 5.7 %; Platelet Count 280 K/mcL (140-400); Red Blood Count 4.45 M/mcL (3.82-4.97); Red Cell Distribution Width 12.8 % (11.5-14.5)
--- NOTE | 2016-05-19 11:19 | Emergency Department Note ---
START Narrative - START START: Patient presents from home with her mother for evaluation of altered mental status, paranoia and dysuria. The patient appears intoxicated and or confused. She is unable to provide a good history at this time. She complains of dysuria and suprapubic abdominal pain which has been present for several days. She was partially evaluated for this a few days ago, but ended up eloping. Patient is unable to describe the pain or rate the pain. She denies fever, chills, nausea or vomiting. She is not sure when her last period was. Her mother states that she has been acting very paranoid and bizarre for the past three weeks. The mother goes on to say that the patient came to her house this morning acting very paranoid and in a short amount of time it took for the mother to drive a child to school and return home, the patient had taken a knife to her wrist and left a elieser. The mother states that she is very surprised that he patient did not cut her arm as the knives were brand-new. The mother goes on to say that the patient has been showing signs of paranoia and psychosis for several years but it has been much more severe and more frequent over the past three weeks. She states that the patient has a history of drug abuse, both prescription and street drugs. Most recently, the patient had a three day meth binge, which seems to have prompted a lot of her current problems. It took a great deal of discussion to get the patient to cooperate and change into a hospital gown. Ultimately, labs will need to be drawn. A urine sample has been provided. Orders have been entered and the case has been discussed with the 11:00 attending, Dr. Phoebe Malone. She will take over care of this patient.
[2016-05-19 11:24] LABS: Alanine Aminotransferase 9 Units/L (0-55); Albumin 4.2 g/dL (3.5-5.0); Albumin/Globulin Ratio 1.2 (1.1-2.2); Alkaline Phosphatase 61 Units/L (38-126); Aspartate Amino Transferase 10 Units/L (5-34); BUN/Creatinine Ratio 16 (6-26); Bilirubin,Direct 0.3 mg/dL (0.0-0.5); Bilirubin,Indirect 0.5 mg/dL (0.0-1.2); Bilirubin,Total 0.8 mg/dL (0.2-1.2); Blood Urea Nitrogen 11 mg/dL (7-20); Calcium 9.8 mg/dL (8.6-10.8); Carbon Dioxide 22 mEq/L (19-29); Chloride 105 mEq/L (98-109); Globulin 3.5 g/dL (2.4-3.5); Glucose 108 mg/dL (70-99); Osmolality,Calculated 290 (280-300); Potassium 3.7 mEq/L (3.5-4.5); Sodium 140 mEq/L (136-145); Total Protein 7.7 g/dL (6.0-8.3); eGFR For African Americans > 60 (> 60); eGFR For Non-African Americans > 60 (> 60)
[2016-05-19 11:25] LABS: Acetaminophen < 1.0 mcg/mL (10-30); Ethanol < 10 mg/dL (0-10); Salicylate < 5.0 mg/dL (15-30)
[2016-05-19 11:43] LABS: Thyroid Stimulating Hormone 0.917 mcIU/mL (0.350-4.840)
--- NOTE | 2016-05-19 12:28 | Emergency Department Note ---
Disposition Clinical Impression: Suicidal ideation Disposition: Admitted As Inpatient Condition: Good Referrals: NO,PCP [Primary Care Provider] - Forms: ED Satisfaction Letter Time of Disposition: 15:53 General Adult HPI - General Chief complaint: ED Psychiatric Symptoms Stated complaint: AMS, psych eval Time Seen by Provider: 05/19/16 10:20 Source: patient, family Limitations: no limitations Nursing Notes Reviewed: Yes Vital Signs Reviewed: Yes - History of Present Illness HPI Narrative: 30 year old female with family hx of paranoia/schizophrenia elviats with her mother today.. Mother states that she has been paranois and has mutliple drug abuse issues and had a 3 day meth binge which has excebrated her symptoms and today attempted to hurt herself with a dull knife on her wrist but was unsuccessful. She has had multiple pysch admissions. Mother is concerend she is a danger to herself and those around her. PAtinet states she did not try to hurt her self but is experienginc abdominal pain without nasuea/vomitting. Meg states that she would like to leave but is under a pysch hold. Meg has been signed out to us from the PA, Cary beard. She is now medically cleared and we will conuslt 1A. Neurolgially intact, no defecits, no complaints of headache. Meg and mother states she had a episode of "passing out" during her stay in the Ed, however she was in her room and the tech witnessed the event and it was described as her becoming weak and she fell to the floor on her knees without losing postural tone and did not have LOC and stood back up without any complaints. Does not appear to be a synopal episode. Pain Scale: 0 - Related Data Home Medications Medication Instructions Recorded Confirmed Dicyclomine [Bentyl] 20 mg PO QID PRN 05/12/16 05/12/16 Previous Rx's Medication Instructions Recorded Alprazolam [Xanax 1 MG Tablet] 1 mg PO BID #30 tablet 05/13/16 Gabapentin [Neurontin] 600 mg PO BID #60 capsule 05/13/16 HydrOXYzine Pamoate [Vistaril] 50 mg PO Q6H PRN #60 capsule 05/13/16 Vitamin B Complex/Vit C/Vit E 1 each PO DAILY tablet 05/13/16 [Stresstab] Allergies Allergy/AdvReac Type Severity Reaction Status Date / Time Amoxicillin [From Amoxil] Allergy Rash Verified 05/12/16 00:45 haloperidol [From Haldol] Allergy Rash Verified 05/12/16 00:45 ketorolac [From Toradol] Allergy Rash Verified 05/12/16 00:45 Penicillins [PCN] Allergy Rash Verified 05/12/16 00:45 Constitutional: Denies: fever, chills, weakness, weight change Eyes: Denies: eye pain, eye discharge, vision change ENT ED: Denies: ear pain, throat pain, dental pain, congestion, dysphagia Cardiovascular: Denies: chest pain, palpitations, dyspnea on exertion, edema, syncope Respiratory: Denies: cough, dyspnea, wheezes, hemoptysis Gastrointestinal: Reports: abdominal pain, nausea. Denies: vomiting, diarrhea, constipation, hematemesis, melena, hematochezia Genitourinary: Denies: dysuria, frequency, hematuria, discharge Musculoskeletal: Denies: back pain, neck pain, arthralgia, myalgia Integumentary: Denies: rash, abrasion, lesions Neurological: Denies: headache, weakness, numbness, paresthesias, confusion, abnormal gait, vertigo Psychiatric: Reports: depression, suicidal thoughts. Denies: anxiety, homicidal thoughts, auditory hallucinations, visual hallucinations Endocrine: Denies: fatigue Past Medical History - Past Medical History Medical history: Reports: asthma, other Surgical history: Reports: no surgical history Psychiatric history: Reports: bipolar, previous psychiatric hospitalization, other CLINICAL CASE MANAGER history: Reports: endometriosis, other - Social History Smoking Status: Current every day smoker Smokeless Tobacco Status: No Alcohol use: Reports: none Drug use: Reports: marijuana, IVDU Physical Exam - General Limitations: no limitations General appearance: alert, in no apparent distress - Head Head exam: atraumatic, normocephalic, normal inspection - Eye Eye exam: Present: normal appearance, PERRL, EOMI - Expanded Eye Exam Eyelids: bilateral: normal inspection Pupils: Left: reactive, Bilateral: regular, round - ENT ENT exam: normal exam, normal oropharynx, mucous membranes moist - Expanded ENT Exam External ear exam: Present: normal external inspection Mouth exam: Present: normal external inspection Teeth exam: Present: normal inspection Throat exam: Present: normal inspection - Neck Neck exam: Present: normal inspection, full ROM, trachea midline - Chest Chest inspection: Present: normal inspection, symmetric chest wall rise - Respiratory Respiratory exam: Present: normal lung sounds bilaterally - Cardiovascular Cardiovascular exam: Present: regular rate, normal rhythm, normal heart sounds - Abdominal Exam Abdominal exam: Present: soft, Non-Tender. Absent: tenderness, distention, guarding, rebound, rigidity - Extremities Exam Extremities exam: Present: normal inspection, full ROM. Absent: tenderness, pedal edema - Expanded Upper Extremity Exam Shoulder exam: Present: normal inspection, full ROM Arm exam: Present: normal inspection, full ROM Elbow exam: Present: normal inspection, full ROM Forearm/Wrist exam: Present: normal inspection, full ROM Hand exam: Present: normal inspection, full ROM Vascular exam: Normal: capillary refill, radial pulse - Expanded Lower Extremity Exam Hip/Pelvis exam: Present: normal inspection, full ROM Upper leg exam: Present: normal inspection, full ROM Knee exam: Present: normal inspection, full ROM Lower leg exam: Present: normal inspection, full ROM Ankle exam: Present: normal inspection, full ROM Foot/toe exam: Present: normal inspection, full ROM Neurovascular/Tendon exam: Absent: motor deficit, sensory deficit, tendon deficit - Back Exam Back exam: Present: normal inspection, full ROM. Absent: tenderness - Neurological Exam Neurological exam: Present: alert, oriented X3 - Expanded Neurological Exam Patient oriented to: Present: person, place, time Coma Scale Eye Opening: Spontaneous Coma Scale Motor Response: Obeys Commands Coma Scale Verbal Response: Oriented Coma Scale Total: 15 - Psychiatric Psychiatric exam: Present: normal affect, normal mood - Skin Skin exam: Present: warm, dry, intact, normal color Course Course Narrative: 1220: patient is medically cleared, and 1A has been consulted. - Consultations Consultation #1: accepted by 1A. waiting for placement. Time: 15:53 Vital Signs Temperature 98.2 F 05/19/16 10:13 Pulse Rate 91 05/19/16 10:13 Respiratory Rate 18 05/19/16 10:13 Blood Pressure 139/100 05/19/16 10:13 O2 Sat by Pulse Oximetry 99 05/19/16 10:13 Temperature 98.2 F 05/19/16 10:13 Pulse Rate 91 05/19/16 10:13 Respiratory Rate 18 05/19/16 10:13 Blood Pressure 139/100 05/19/16 10:13 O2 Sat by Pulse Oximetry 99 05/19/16 10:13 Oxygen Delivery Oxygen Delivery Room Air Medical Decision Making - Lab Data Result diagrams: 05/19/16 11:03 05/19/16 11:03 Lab Results 05/19/16 05/19/16 05/19/16 Range/Units 10:45 10:45 10:45 WBC (4.3-11.1) K/mcL RBC (3.82-4.97) M/mcL Hgb (11.5-15.4) g/dL Hct (35.3-44.9) % MCV (83.0-100.0) fL MCH (28.0-33.3) pg MCHC (31.6-35.5) g/dL RDW (11.5-14.5) % Plt Count (140-400) K/mcL MPV (9.4-12.4) fL Immature Gran % (0-4) % Seg Neutrophils % % Lymphocytes % % Monocytes % % Eosinophils % % Basophils % % Neutrophils # (1.6-8.9) K/mcL Lymphocytes # (0.6-4.6) K/mcL Monocytes # (0.0-1.3) K/mcL Eosinophils # (0.0-0.6) K/mcL Basophils # (0.0-0.2) K/mcL Sodium (136-145) mEq/L Potassium (3.5-4.5) mEq/L Chloride (98-109) mEq/L Carbon Dioxide (19-29) mEq/L BUN (7-20) mg/dL Creatinine (0.57-1.11) mg/dL Est GFR ( Amer) (> 60) Est GFR (Non-Af Amer) (> 60) BUN/Creatinine Ratio (6-26) Glucose (70-99) mg/dL Calculated Osmolality (280-300) Calcium (8.6-10.8) mg/dL Total Bilirubin (0.2-1.2) mg/dL Direct Bilirubin (0.0-0.5) mg/dL Indirect Bilirubin (0.0-1.2) mg/dL AST (5-34) Units/L ALT (0-55) Units/L Alkaline Phosphatase (38-126) Units/L Serum Total Protein (6.0-8.3) g/dL Albumin (3.5-5.0) g/dL Globulin (2.4-3.5) g/dL Albumin/Globulin Ratio (1.1-2.2) TSH (0.350-4.840) mcIU/mL Urine Color Yellow (Yellow) Urine Clarity Clear (Clear) Urine pH 6.5 (5.0-8.0) pH Units Ur Specific [place] 1.008 L (1.010-1.025) Urine Protein Negative (Neg-Trace) mg/dL Urine Glucose (UA) Normal (Normal) mg/dL Urine Ketones Negative (Negative) mg/dL Urine Blood Negative (Negative) Urine Nitrite Negative (Negative) Urine Bilirubin Negative (Negative) Urine Urobilinogen Normal (Normal) mg/dL Ur Leukocyte Esterase Negative (Negative) Urine Test Negative (Negative) Salicylates (15-30) mg/dL Urine Opiates Screen Negative (Hcjxag=350) ng/mL Acetaminophen (10-30) mcg/mL Ur Barbiturates Screen Negative (Agfwio=767) ng/mL Ur Phencyclidine Scrn Negative (Cutoff=25) ng/mL Ur Amphetamines Screen Negative (Bxcmic=4995) ng/mL U Benzodiazepines Scrn Positive H (Vluqzi=177) ng/mL Urine Cocaine Screen Negative (Cutoff= 300) ng/mL U Marijuana (THC) Screen Positive H (Cutoff = 50) ng/mL Ethyl Alcohol (0-10) mg/dL 05/19/16 05/19/16 Range/Units 11:03 11:03 WBC 9.4 (4.3-11.1) K/mcL RBC 4.45 (3.82-4.97) M/mcL Hgb 14.4 (11.5-15.4) g/dL Hct 41.9 (35.3-44.9) % MCV 94.2 (83.0-100.0) fL MCH 32.4 (28.0-33.3) pg MCHC 34.4 (31.6-35.5) g/dL RDW 12.8 (11.5-14.5) % Plt Count 280 (140-400) K/mcL MPV 9.6 (9.4-12.4) fL Immature Gran % 0.4 (0-4) % Seg Neutrophils % 75.0 % Lymphocytes % 17.9 % Monocytes % 5.7 % Eosinophils % 0.3 % Basophils % 0.7 % Neutrophils # 7.0 (1.6-8.9) K/mcL Lymphocytes # 1.7 (0.6-4.6) K/mcL Monocytes # 0.5 (0.0-1.3) K/mcL Eosinophils # 0.0 (0.0-0.6) K/mcL Basophils # 0.1 (0.0-0.2) K/mcL Sodium 140 (136-145) mEq/L Potassium 3.7 (3.5-4.5) mEq/L Chloride 105 (98-109) mEq/L Carbon Dioxide 22 (19-29) mEq/L BUN 11 (7-20) mg/dL Creatinine 0.69 (0.57-1.11) mg/dL Est GFR ( Amer) > 60 (> 60) Est GFR (Non-Af Amer) > 60 (> 60) BUN/Creatinine Ratio 16 (6-26) Glucose 108 H (70-99) mg/dL Calculated Osmolality 290 (280-300) Calcium 9.8 (8.6-10.8) mg/dL Total Bilirubin 0.8 (0.2-1.2) mg/dL Direct Bilirubin 0.3 (0.0-0.5) mg/dL Indirect Bilirubin 0.5 (0.0-1.2) mg/dL AST 10 (5-34) Units/L ALT 9 (0-55) Units/L Alkaline Phosphatase 61 (38-126) Units/L Serum Total Protein 7.7 (6.0-8.3) g/dL Albumin 4.2 (3.5-5.0) g/dL Globulin 3.5 (2.4-3.5) g/dL Albumin/Globulin Ratio 1.2 (1.1-2.2) TSH 0.917 (0.350-4.840) mcIU/mL Urine Color (Yellow) Urine Clarity (Clear) Urine pH (5.0-8.0) pH Units Ur Specific [place] (1.010-1.025) Urine Protein (Neg-Trace) mg/dL Urine Glucose (UA) (Normal) mg/dL Urine Ketones (Negative) mg/dL Urine Blood (Negative) Urine Nitrite (Negative) Urine Bilirubin (Negative) Urine Urobilinogen (Normal) mg/dL Ur Leukocyte Esterase (Negative) Urine Test (Negative) Salicylates < 5.0 L (15-30) mg/dL Urine Opiates Screen (Mudiap=933) ng/mL Acetaminophen < 1.0 L (10-30) mcg/mL Ur Barbiturates Screen (Dhgjgf=707) ng/mL Ur Phencyclidine Scrn (Cutoff=25) ng/mL Ur Amphetamines Screen (Enmopy=0934) ng/mL U Benzodiazepines Scrn (Rikcdt=088) ng/mL Urine Cocaine Screen (Cutoff= 300) ng/mL U Marijuana (THC) Screen (Cutoff = 50) ng/mL Ethyl Alcohol < 10 (0-10) mg/dL Attestation Statement - Attestation Attestation: I personally interviewed and examined this patient and my medical decision- making was reviewed with the ED Resident Physician, Dr. Holland. I agree with the documented findings, disposition and treatment plan as described except to the extent set forth below. Patient is a 30-year-old white female who presents to the emergency room by her mother today with concerns for visual and auditory hallucinations, increased paranoia and an intent to harm herself prior to arrival. Mother reports that the patient took a knife to her left wrist and cut her left wrist. Patient has a superficial abrasion noted to the left volar wrist with no active bleeding. When I asked the patient about this she said she did this because she was "frustrated". Patient states she takes Celexa at home but has not been taking her medications for the past 2 weeks. Patient has a history of bipolar disorder and has had prior psychiatric admissions for an exacerbation of this with depression. Patient is tearful at bedside stating that she is just not been herself as of recent and is having thoughts of harming herself more to alleviate stress. Patient denies any other physical complaints she did mention in triage that she was having some mild dysuria and urine and urinalysis was obtained. For me patient denies any fevers or chills, no abdominal pain or cramping, no flank pain but does state that she had some burning with urination. Patient denies any abnormal vaginal bleeding or discharge. Patient has no other physical complaints here today. Patient's exam is unremarkable. At this point time labs were obtained for psychiatric clearance which shows a positive urine drug screen with marijuana and benzos. Alcohol is negative. Remainder of her lab evaluations unremarkable. At this point with consult in one A to come down and do formal assessment of the patient to see if she requires hospitalization.
[2016-05-19] MEDS ORDERED: *HR* LORazepam 2 MG/ML VIAL IM STA (16:56)
[2016-05-19] MEDS ORDERED: Ziprasidone injection 20 MG/ML VIAL IM ONE (16:56)
[2016-05-19] MEDS ORDERED: Mag Hydrox/Al Hydrox/Simeth 30 ML UDC PO PRN (21:12)
[2016-05-19] MEDS ORDERED: hydrOXYzine pamoate 25 MG CAPSULE PO PRN (21:12)
[2016-05-19] MEDS: traZODone 50 MG TABLET PO PRN (22:16)
[2016-05-19] MEDS: MOM Conc 10 ML UD.LIQ PO PRN (22:16)
[2016-05-19] MEDS: Gabapentin 300 MG CAPSULE PO SCH (22:27)
[2016-05-20] MEDS: Ibuprofen 400 MG TABLET PO PRN ×2 (06:46→13:08)
[2016-05-20] MEDS: OLANZapine 5 MG TAB.RAPDIS PO PRN (06:46)
[2016-05-20] MEDS: Gabapentin 300 MG CAPSULE PO SCH ×3 (08:34→20:36)
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
[2016-05-20] MEDS: clonazePAM 1 MG TABLET PO SCH ×2 (15:01→20:35)
[2016-05-20] MEDS ORDERED: CefTRIAXone 1,000 MG VIAL IM ONE (19:55)
--- NOTE | 2016-05-20 20:01 | OB/GYN Consult Note ---
Date of Encounter: 05/20/16 Time of Encounter: 20:05 Assessment and Plan (1) Pelvic pain Current Visit: Yes Status: Acute Suspect pt with PID. Cx's obtained. Will check u/s and tx with Rocephina and Doxy. Pt without fever or white count so PO doxy should suffice (2) Discharge from genitalia Current Visit: Yes Status: Acute cultures obtained. History of Present Illness Consult date: 05/20/16 Reason for consult: pelvic pain (discharge) Chief complaint: 2 week h/o pelvic pain and discharge with irregular bleeding. History of present illness: Pt is a 30 yo female admitted to psychiatry for suicide attempt and who c/o 2 week h/o bloody yellow d/c and low pelvic pain more severe on her right. She denies h/o similar c/o. She had neg preg test on admit and normal WBC. She denies h/o abnormal pap or STD's. Past Med Surg Social Fam HX - Past Medical History Source: patient Medical history: asthma, other (Endometriosis with 7 surgeries.) Psychiatric history: bipolar, previous psychiatric hospitalization, other - Past Surgical History Surgical History: no surgical history, appendectomy, cholecystectomy - Social History Smoking Status: Current every day smoker Smokeless Tobacco Status: No Alcohol use: none Drug use: marijuana, methamphetamine, IVDU, other (BZD) Medications and Allergies Dicyclomine [Bentyl] 20 mg PO QID PRN 05/12/16 [History] Alprazolam [Xanax 1 MG Tablet] 1 mg PO BID #30 tablet 05/13/16 [Rx] Gabapentin [Neurontin] 600 mg PO BID #60 capsule 05/13/16 [Rx] HydrOXYzine Pamoate [Vistaril] 50 mg PO Q6H PRN #60 capsule 05/13/16 [Rx] Vitamin B Complex/Vit C/Vit E [Stresstab] 1 each PO DAILY tablet 05/13/16 [Rx] Allergies Amoxicillin [From Amoxil] Allergy (Verified 05/12/16 00:45) Rash haloperidol [From Haldol] Allergy (Verified 05/12/16 00:45) Rash ketorolac [From Toradol] Allergy (Verified 05/12/16 00:45) Rash Penicillins [PCN] Allergy (Verified 05/12/16 00:45) Rash Review of Systems Constitutional: as per HPI Exam - Vital Signs Vital signs: Initial Vital Signs Temp Pulse Resp BP Pulse Ox 98.2 F 91 18 139/100 99 05/19/16 10:13 05/19/16 10:13 05/19/16 10:13 05/19/16 10:13 05/19/16 10:13 - Constitutional Constitutional: well developed - HEENT HEENT: EOMI, PERRL - Neck Neck exam: full ROM - Cardiovascular Cardiovascular exam: RRR - Abdomen Abdomen: Present: bowel sounds normal - Extremities Extremities exam: full ROM - Vagina Vagina: Present: normal moisture, discharge - Uterus Uterus exam: Present: tender - Adnexa Adnexa: right: tenderness - Comments Comments: +CMT, mucopurulent bloody d/c noted from cervix Results Result Diagrams: 05/19/16 11:03 05/19/16 11:03 Abnormal lab results Glucose 108 mg/dL (70-99) H 05/19/16 11:03 Ur Specific [place] 1.008 (1.010-1.025) L 05/19/16 10:45 Salicylates < 5.0 mg/dL (15-30) L 05/19/16 11:03 Acetaminophen < 1.0 mcg/mL (10-30) L 05/19/16 11:03 U Benzodiazepines Scrn Positive ng/mL (Wcbggn=441) H 05/19/16 10:45 U Marijuana (THC) Screen Positive ng/mL (Cutoff = 50) H 05/19/16 10:45 All other labs normal. Consult Discharge Plan - Plan Referrals: [facility] [Outside] - 05/22/16 1:00 pm (The above appointment is with Elizabeth Flores. When you come to your first appointment, you will have an orientation to the agency and you will meet with a counselor. Please bring the following with you to your first visit to the clinic: 1) proof of household income (two consecutive pay stubs, social security award letter, bank statement, statement letter from [employer], child support statement, IRS 1040 or W2 form, or a statement from the person who financially supports you stating they help provide for your basic needs), 2) proof of residency (drivers license , a piece of mail showing your address, a statement from person you live with verifying you live at their address), 3) your social security card, 4) photo ID , and 5) your insurance card (if you have commercial insurance you must call to obtain a prior authorization number before you arrive to your first appointment) . If you do not bring these items, you will not be seen.) ePdro Long, PAC [Physician In Home Caregiver] - 06/02/16 11:30 am (The above appointment is with Pedro Long.)
[2016-05-20] MEDS: Lithium Carbonate ER 300 MG TABLET.ER PO SCH (20:34)
[2016-05-20] MEDS: OXcarbazepine 150 MG TABLET PO SCH (20:35)
[2016-05-20 22:41] LABS: Bilirubin,Urine Negative (Negative); Blood,Urine Small (Negative); Clarity,Urine Cloudy (Clear); Color,Urine Yellow (Yellow); Glucose,Urine (UA) Normal (Normal); Ketones,Urine Negative (Negative); Leukocyte Esterase,Urine Negative (Negative); Nitrite,Urine Negative (Negative); Protein,Urine Negative (Neg-Trace); Specific Gravity,Urine 1.014 (1.010-1.025); Urobilinogen,Urine Normal (Normal)
[2016-05-20 22:43] LABS: Bacteria,Urine None Seen per hpf (None-Few); Hyaline Casts,Urine None Seen per lpf (None-Few); RBC,Urine 0-3 per hpf (0-3); Squamous Epithelial Cell,Urine Many per lpf (None-Few); WBC,Urine 0-3 per hpf (0-3)
[2016-05-20] MEDS: Doxycycline 100 MG CAPSULE PO SCH (23:58)
[2016-05-21 00:25] LABS: Candida DNA Not Detected (Not Detect); Gardnerella DNA ***DETECTED*** (Not Detect); Trichomonas DNA Not Detected (Not Detect)
[2016-05-21] MEDS: Ibuprofen 400 MG TABLET PO PRN ×3 (04:30→20:39)
[2016-05-21] MEDS: OLANZapine 5 MG TAB.RAPDIS PO PRN ×2 (05:37→10:06)
[2016-05-21] MEDS: hydrOXYzine pamoate 25 MG CAPSULE PO PRN (06:54)
[2016-05-21] MEDS: Doxycycline 100 MG CAPSULE PO SCH ×2 (08:48→20:24)
[2016-05-21] MEDS: Lithium Carbonate ER 300 MG TABLET.ER PO SCH ×2 (08:48→20:30)
[2016-05-21] MEDS: clonazePAM 1 MG TABLET PO SCH ×3 (08:48→20:25)
[2016-05-21] MEDS: Gabapentin 300 MG CAPSULE PO SCH ×3 (08:48→20:25)
[2016-05-21] MEDS: OXcarbazepine 150 MG TABLET PO SCH ×2 (08:49→20:28)
[2016-05-21] MEDS ORDERED: CefTRIAXone 1,000 MG VIAL IM ONE (09:00)
--- NOTE | 2016-05-21 13:23 | Psychiatry Progress Note ---
Date of Encounter: 05/21/16 Time of Encounter: 14:15 Subjective Interval history: Pt reports that she has been on Seroquel, Zoloft, Lexapro, Celexa, Depakote and Crucible in the past. Pt has h/o 6 psychiatric hospitalizations at different hospitals in [place] and at [place]. She reports taht the only thing that had helped her was Crucible. She has not been on proper antipsychotic regimen and has been treating her paranoia with BZD. She tried to escape the unit last evening. She had another incident last PM where she tried to hide otoscope on her body likely to defend herself. Review of Systems Psychiatric: Reports: anxiety, abnormal sleep pattern, suicidal ideation, change in appetite, anhedonia, difficulty concentrating, hopelessness, irritability, mood swings, panic attacks Objective: Exam Level of alertness: Alert Patient appearance: Appropriate, Well Groomed, Average Behavior: cooperative, nervous, anxious, tearful, fearful Psychomotor activity: Increased Eye contact: Maintains Eye Contact Mood description: Depressed, Anxious, Irritable Affect description: congruent with mood Speech pattern: Rambling, Excessive, Pressured Thought process: Intact, Circumstantial Thought content: Yes Intact, Yes Suicidal ideation, Yes Paranoid delusion Perceptual disturbances: Yes Reacting to internal stimuli, Yes Auditory hallucinations Judgment: Limited Insight: Partial Results - Vital Signs Vital Signs: Temp Pulse Resp BP Pulse Ox 97.8 F 99 18 138/91 99 05/21/16 08:03 05/21/16 10:17 05/21/16 10:17 05/21/16 10:17 05/19/16 10:13 - Labs Labs: Laboratory Results - last 24 hr 05/20/16 05/20/16 05/20/16 19:50 19:50 19:50 Urine Color Yellow Urine Clarity Cloudy A Urine pH 6.0 Ur Specific [place] 1.014 Urine Protein Negative Urine Glucose (UA) Normal Urine Ketones Negative Urine Blood Small H Urine Nitrite Negative Urine Bilirubin Negative Urine Urobilinogen Normal Ur Leukocyte Esterase Negative Urine Microscopic RBC 0-3 Urine Microscopic WBC 0-3 Ur Squamous Epith Cells Many H Urine Bacteria None Seen Hyaline Casts None Seen Ur Culture Indicated? 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 [facility] - 05/22/16 1:00 pm (The above appointment is with Elizabeth Flores. When you come to your first appointment, you will have an orientation to the agency and you will meet with a counselor. Please bring the following with you to your first visit to the clinic: 1) proof of household income (two consecutive pay stubs, social security award letter, bank statement, statement letter from [facility], child support statement, IRS 1040 or W2 form, or a statement from the person who financially supports you stating they help provide for your basic needs), 2) proof of residency (drivers license , a piece of mail showing your address, a statement from person you live with verifying you live at their address), 3) your social security card, 4) photo ID , and 5) your insurance card (if you have commercial insurance you must call to obtain a prior authorization number before you arrive to your first appointment) . If you do not bring these items, you will not be seen.) Pedro Long, PAC [Physician Botany Teacher] - 06/02/16 11:30 am (The above appointment is with Pedro Long.)
[2016-05-21] MEDS: OLANZapine 5 MG TAB.RAPDIS PO SCH (20:28)
[2016-05-22] MEDS: Ibuprofen 400 MG TABLET PO PRN ×2 (03:10→16:17)
[2016-05-22] MEDS: Gabapentin 300 MG CAPSULE PO SCH ×3 (09:09→21:12)
[2016-05-22] MEDS: Doxycycline 100 MG CAPSULE PO SCH ×2 (09:09→21:11)
[2016-05-22] MEDS: OXcarbazepine 150 MG TABLET PO SCH ×2 (09:10→21:12)
[2016-05-22] MEDS: Lithium Carbonate ER 300 MG TABLET.ER PO SCH ×3 (09:11→21:13)
[2016-05-22] MEDS: OLANZapine 5 MG TAB.RAPDIS PO SCH ×2 (09:11→21:12)
[2016-05-22] MEDS: clonazePAM 1 MG TABLET PO SCH (09:11)
[2016-05-22] MEDS: Nicotine 21 MG PATCH.TD24 TD SCH (11:39)
--- NOTE | 2016-05-22 14:27 | Psychiatry Progress Note ---
Date of Encounter: 05/22/16 Time of Encounter: 14:15 Subjective Interval history: Pt reports that her paranoia is still there but wants to leave soon. She thinks that Zyprexa is helping her. She has been more participatory in the unit activities. She is obsessed with having a blood clot in her legs and wants to be put on a blood thinner. Review of Systems Psychiatric: Reports: depression, anxiety, abnormal sleep pattern, change in appetite, anhedonia, difficulty concentrating, hopelessness, irritability, mood swings, panic attacks Objective: Exam Level of alertness: Alert Patient appearance: Appropriate, Well Groomed, Average Behavior: cooperative, nervous, anxious, tearful, fearful Psychomotor activity: Increased Eye contact: Maintains Eye Contact Mood description: Depressed, Anxious, Irritable Affect description: congruent with mood Speech pattern: Rambling, Excessive, Pressured Thought process: Intact, Circumstantial Thought content: Yes Intact, Yes Suicidal ideation, Yes Paranoid delusion Perceptual disturbances: Yes Reacting to internal stimuli, Yes Auditory hallucinations Judgment: Limited Insight: Partial Results - Vital Signs Vital Signs: Temp Pulse Resp BP Pulse Ox 98.8 F 79 16 121/82 99 05/22/16 09:00 05/22/16 09:00 05/22/16 09:00 05/22/16 09:00 05/19/16 10:13 Assessment and Plan (1) Bipolar 1 disorder, depressed, severe Current visit: Yes Status: Acute Risks, benefits, side effects, alternatives discussed w/pt: Yes (Cont [place] and Trileptal and Zyprexa. 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 When you come to your first appointment, you will have an orientation to the agency and you will meet with a counselor. Please bring the following with you to your first visit to the clinic: 1) proof of household income (two consecutive pay stubs, social security award letter, bank statement, statement letter from [facility], child support statement, IRS 1040 or W2 form, or a statement from the person who financially supports you stating they help provide for your basic needs), 2) proof of residency (drivers license , a piece of mail showing your address, a statement from person you live with verifying you live at their address), 3) your social security card, 4) photo ID , and 5) your insurance card (if you have commercial insurance you must call to obtain a prior authorization number before you arrive to your first appointment) . If you do not bring these items, you will not be seen.) Pedro Long, PAC [Physician Music Promoter] - 06/02/16 11:30 am (The above appointment is with Pedro Long.)
[2016-05-22] MEDS ORDERED: Ketorolac 15 MG/ML VIAL IM PRN (14:38)
[2016-05-22] MEDS: clonazePAM 0.5 MG TABLET PO SCH ×2 (15:33→21:11)
[2016-05-22] MEDS: MOM Conc 10 ML UD.LIQ PO PRN (18:34)
[2016-05-23] MEDS: Nicotine 21 MG PATCH.TD24 TD SCH (08:50)
[2016-05-23] MEDS: Doxycycline 100 MG CAPSULE PO SCH ×2 (08:51→21:19)
[2016-05-23] MEDS: OLANZapine 5 MG TAB.RAPDIS PO SCH ×2 (08:51→21:19)
[2016-05-23] MEDS: Lithium Carbonate ER 300 MG TABLET.ER PO SCH ×3 (08:52→21:19)
[2016-05-23] MEDS: Gabapentin 300 MG CAPSULE PO SCH ×3 (08:52→21:19)
[2016-05-23] MEDS: clonazePAM 0.5 MG TABLET PO SCH ×3 (08:52→21:18)
[2016-05-23] MEDS: OXcarbazepine 150 MG TABLET PO SCH ×2 (08:52→21:19)
[2016-05-23 09:23] LABS: BUN/Creatinine Ratio 20 (6-26); Blood Urea Nitrogen 16 mg/dL (7-20); Calcium 10.3 mg/dL (8.6-10.8); Carbon Dioxide 30 mEq/L (19-29); Chloride 102 mEq/L (98-109); Glucose 93 mg/dL (70-99); Osmolality,Calculated 293 (280-300); Sodium 141 mEq/L (136-145); eGFR For African Americans > 60 (> 60); eGFR For Non-African Americans > 60 (> 60)
[2016-05-23] MEDS: hydrOXYzine pamoate 25 MG CAPSULE PO PRN ×2 (12:57→23:51)
--- NOTE | 2016-05-23 15:25 | Psychiatry Progress Note ---
Date of Encounter: 05/23/16 Time of Encounter: 15:20 Subjective Interval history: Pt reports that she is feeling a lot better and would like to go home for the Easter. She is not so focused on getting herself better . She slept better last night. She is worried about her female infection. Review of Systems Psychiatric: Reports: depression, anxiety, abnormal sleep pattern, change in appetite, anhedonia, difficulty concentrating, hopelessness, irritability, mood swings, panic attacks Objective: Exam Level of alertness: Alert Patient appearance: Appropriate, Well Groomed, Average Behavior: cooperative, nervous, anxious, tearful, fearful Psychomotor activity: Increased Eye contact: Maintains Eye Contact Mood description: Depressed, Anxious, Irritable Affect description: congruent with mood Speech pattern: Rambling, Excessive, Pressured Thought process: Intact, Circumstantial Thought content: Yes Intact, Yes Suicidal ideation, Yes Paranoid delusion Perceptual disturbances: Yes Reacting to internal stimuli, Yes Auditory hallucinations Judgment: Limited Insight: Partial Results - Vital Signs Vital Signs: Temp Pulse Resp BP Pulse Ox 98.5 F 80 16 111/76 99 05/23/16 08:57 05/23/16 08:57 05/23/16 08:57 05/23/16 08:57 05/19/16 10:13 - Drug Levels and Toxicology Drug Levels and Toxicology: Drug Levels and Toxicity 05/23/16 09:00 [place] 0.4 L - Labs Labs: Laboratory Results - last 24 hr 05/23/16 05/23/16 09:00 09:00 Sodium 141 Potassium 4.0 Chloride 102 Carbon Dioxide 30 H BUN 16 Creatinine 0.80 Est GFR ( Amer) > 60 Est GFR (Non-Af Amer) > 60 BUN/Creatinine Ratio 20 Glucose 93 Calculated Osmolality 293 Calcium 10.3 [place] 0.4 L Assessment and Plan (1) Bipolar 1 disorder, depressed, severe Current visit: Yes Status: Acute Plan: Continue hospitalization, Close observation, Encourage participation in unit milieu, Group Therapy, Monitor sleep, Monitor appetite, Secure weapons, Family/Supportive other meeting Risks, benefits, side effects, alternatives discussed w/pt: Yes (Cont [place] and Trileptal and Zyprexa. 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 When you come to your first appointment, you will have an orientation to the agency and you will meet with a counselor. Please bring the following with you to your first visit to the clinic: 1) proof of household income (two consecutive pay stubs, social security award letter, bank statement, statement letter from [facility], child support statement, IRS 1040 or W2 form, or a statement from the person who financially supports you stating they help provide for your basic needs), 2) proof of residency (drivers license , a piece of mail showing your address, a statement from person you live with verifying you live at their address), 3) your social security card, 4) photo ID , and 5) your insurance card (if you have commercial insurance you must call to obtain a prior authorization number before you arrive to your first appointment) . If you do not bring these items, you will not be seen.) Pedro Long, PAC [Physician Instruction Assistant Principal] - 06/02/16 11:30 am (The above appointment is with Pedro Long.)
[2016-05-23] MEDS: Ibuprofen 400 MG TABLET PO PRN (15:35)
[2016-05-23] MEDS: MOM Conc 10 ML UD.LIQ PO PRN (22:05)
[2016-05-24] MEDS: Doxycycline 100 MG CAPSULE PO SCH ×2 (08:40→21:13)
[2016-05-24] MEDS: OXcarbazepine 150 MG TABLET PO SCH ×2 (08:40→21:13)
[2016-05-24] MEDS: Lithium Carbonate ER 300 MG TABLET.ER PO SCH ×3 (08:41→21:13)
[2016-05-24] MEDS: clonazePAM 0.5 MG TABLET PO SCH ×3 (08:42→21:13)
[2016-05-24] MEDS: OLANZapine 5 MG TAB.RAPDIS PO SCH ×2 (08:42→21:12)
[2016-05-24] MEDS: Gabapentin 300 MG CAPSULE PO SCH ×3 (08:43→21:13)
[2016-05-24] MEDS: Nicotine 21 MG PATCH.TD24 TD SCH (08:50)
[2016-05-24] MEDS: Ibuprofen 400 MG TABLET PO PRN (14:51)
--- NOTE | 2016-05-24 20:02 | Psychiatry Progress Note ---
Date of Encounter: 05/24/16 Time of Encounter: 19:50 Subjective Interval history: Pt reports that she is struggling to get use to her emotions and crying. She had a BM . She reports restless sleep. No nightmares. She is still focused on wanting to go home. Believes the meds are working as she is seeing a decrease in her paranoia. Review of Systems Psychiatric: Reports: depression, anxiety, abnormal sleep pattern, change in appetite, difficulty concentrating, hopelessness, mood swings, panic attacks Objective: Exam Level of alertness: Alert Patient appearance: Appropriate, Well Groomed, Average Behavior: cooperative, nervous, anxious, tearful, fearful Psychomotor activity: Increased Eye contact: Maintains Eye Contact Mood description: Depressed, Anxious Affect description: congruent with mood Speech pattern: Rambling, Excessive, Pressured Thought process: Intact, Circumstantial Thought content: Yes Intact, Yes Suicidal ideation, Yes Paranoid delusion Perceptual disturbances: Yes Reacting to internal stimuli, Yes Auditory hallucinations Judgment: Limited Insight: Partial Results - Vital Signs Vital Signs: Temp Pulse Resp BP Pulse Ox 98.1 F 72 16 115/81 99 05/24/16 09:00 05/24/16 09:00 05/24/16 09:00 05/24/16 09:00 05/19/16 10:13 Assessment and Plan (1) Bipolar 1 disorder, depressed, severe Current visit: Yes Status: Acute Plan: Continue hospitalization, Close observation, Encourage participation in unit milieu, Group Therapy, Monitor sleep, Monitor appetite, Secure weapons, Family/Supportive other meeting Risks, benefits, side effects, alternatives discussed w/pt: Yes (Cont [place] and Trileptal and Zyprexa. 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 When you come to your first appointment, you will have an orientation to the agency and you will meet with a counselor. Please bring the following with you to your first visit to the clinic: 1) proof of household income (two consecutive pay stubs, social security award letter, bank statement, statement letter from [facility], child support statement, IRS 1040 or W2 form, or a statement from the person who financially supports you stating they help provide for your basic needs), 2) proof of residency (drivers license , a piece of mail showing your address, a statement from person you live with verifying you live at their address), 3) your social security card, 4) photo ID , and 5) your insurance card (if you have commercial insurance you must call to obtain a prior authorization number before you arrive to your first appointment) . If you do not bring these items, you will not be seen.) Pedro Long, PAC [Physician Linoleum Tile Floor Layer] - 06/02/16 11:30 am (The above appointment is with Pedro Long.)
[2016-05-25] MEDS: traZODone 50 MG TABLET PO PRN (00:18)
[2016-05-25] MEDS: Ibuprofen 400 MG TABLET PO PRN ×3 (00:18→22:52)
[2016-05-25] MEDS: Nicotine 21 MG PATCH.TD24 TD SCH (08:27)
[2016-05-25] MEDS: Doxycycline 100 MG CAPSULE PO SCH ×2 (08:28→22:46)
[2016-05-25] MEDS: clonazePAM 0.5 MG TABLET PO SCH ×3 (08:28→22:47)
[2016-05-25] MEDS: Gabapentin 300 MG CAPSULE PO SCH ×3 (08:28→22:47)
[2016-05-25] MEDS: OXcarbazepine 150 MG TABLET PO SCH ×2 (08:29→23:30)
[2016-05-25] MEDS: Lithium Carbonate ER 300 MG TABLET.ER PO SCH ×3 (08:29→22:48)
[2016-05-25] MEDS: OLANZapine 5 MG TAB.RAPDIS PO SCH ×2 (08:30→22:48)
--- NOTE | 2016-05-25 13:40 | Psychiatry Progress Note ---
Date of Encounter: 05/25/16 Time of Encounter: 13:40 Subjective Interval history: Pt is now worrying about the effects of Meth on her brain. SHe is also worried about her STD. She reports that she still has forgetfulness and wondering if all that will clear up. No s/e from meds/ Review of Systems Psychiatric: Reports: depression, anxiety, abnormal sleep pattern, change in appetite, difficulty concentrating, hopelessness, mood swings, panic attacks Objective: Exam Level of alertness: Alert Patient appearance: Appropriate, Well Groomed, Average Behavior: cooperative, nervous, anxious, tearful, fearful Psychomotor activity: Increased Eye contact: Maintains Eye Contact Mood description: Depressed, Anxious Affect description: congruent with mood Speech pattern: Rambling, Excessive, Pressured Thought process: Intact, Circumstantial Thought content: Yes Intact, Yes Suicidal ideation, Yes Paranoid delusion Perceptual disturbances: Yes Reacting to internal stimuli, Yes Auditory hallucinations Judgment: Limited Insight: Partial Results - Vital Signs Vital Signs: Temp Pulse Resp BP Pulse Ox 98.1 F 80 16 108/75 99 05/25/16 07:55 05/25/16 07:55 05/25/16 07:55 05/25/16 07:55 05/19/16 10:13 Assessment and Plan (1) Bipolar 1 disorder, depressed, severe Current visit: Yes Status: Acute Plan: Continue hospitalization, Close observation, Encourage participation in unit milieu, Group Therapy, Monitor sleep, Monitor appetite, Secure weapons, Family/Supportive other meeting Risks, benefits, side effects, alternatives discussed w/pt: Yes (Cont [place] and Trileptal and Zyprexa. 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 When you come to your first appointment, you will have an orientation to the agency and you will meet with a counselor. Please bring the following with you to your first visit to the clinic: 1) proof of household income (two consecutive pay stubs, social security award letter, bank statement, statement letter from [facility], child support statement, IRS 1040 or W2 form, or a statement from the person who financially supports you stating they help provide for your basic needs), 2) proof of residency (drivers license , a piece of mail showing your address, a statement from person you live with verifying you live at their address), 3) your social security card, 4) photo ID , and 5) your insurance card (if you have commercial insurance you must call to obtain a prior authorization number before you arrive to your first appointment) . If you do not bring these items, you will not be seen.) Pedro Long, PAC [Physician Head Of Marketing Adometry] - 06/02/16 11:30 am (The above appointment is with Pedro Long.)
[2016-05-26] MEDS: Nicotine 21 MG PATCH.TD24 TD SCH (08:27)
[2016-05-26] MEDS: Doxycycline 100 MG CAPSULE PO SCH ×2 (08:27→20:22)
[2016-05-26] MEDS: OXcarbazepine 150 MG TABLET PO SCH ×2 (08:28→20:18)
[2016-05-26] MEDS: Gabapentin 300 MG CAPSULE PO SCH ×3 (08:28→20:19)
[2016-05-26] MEDS: clonazePAM 0.5 MG TABLET PO SCH ×3 (08:30→20:16)
[2016-05-26] MEDS: Lithium Carbonate ER 300 MG TABLET.ER PO SCH ×3 (08:30→20:19)
[2016-05-26] MEDS: OLANZapine 5 MG TAB.RAPDIS PO SCH ×2 (08:30→20:14)
--- NOTE | 2016-05-26 13:02 | Psychiatry Progress Note ---
Date of Encounter: 05/26/16 Time of Encounter: 12:50 Subjective Interval history: Patient is here for follow-up. I reviewed admission and progress notes. Nursing staff report patient complained of a rash over her body after taking prazosin last night. We will discontinue this medication. Patient reporting multiple somatic complaints including bloating and worried about discharge on the hospital. She is calm and cooperative. Denied any hallucination or suicidal thoughts. Review of Systems Psychiatric: Reports: depression, anxiety, abnormal sleep pattern, change in appetite, difficulty concentrating, hopelessness, mood swings, panic attacks Objective: Exam Patient orientation: Yes Person, Yes Time, Yes Place Level of alertness: Alert Patient appearance: Appropriate, Well Groomed, Average Behavior: cooperative, nervous, anxious, fearful Psychomotor activity: Normal Eye contact: Maintains Eye Contact Mood description: Depressed, Anxious Affect description: congruent with mood, blunted Speech pattern: Normal rate, Normal rhythm, Normal tone, Limited Speech volume: Normal Thought process: Intact, Circumstantial Thought content: Yes Intact, No Suicidal ideation, Yes Paranoid delusion Perceptual disturbances: Yes Reacting to internal stimuli, Yes Auditory hallucinations Judgment: Limited Insight: Partial Results - Vital Signs Vital Signs: Temp Pulse Resp BP Pulse Ox 98.2 F 85 16 117/78 99 05/26/16 08:43 05/26/16 08:43 05/26/16 08:43 05/26/16 08:43 05/19/16 10:13 Consult Discharge Plan - Plan Referrals: [facility] [Outside] - 05/30/16 1:00 pm (The above appointment is with Elizabteh Flores. When you come to your first appointment, you will have an orientation to the agency and you will meet with a counselor. Please bring the following with you to your first visit to the clinic: 1) proof of household income (two consecutive pay stubs, social security award letter, bank statement, statement letter from [facility], child support statement, IRS 1040 or W2 form, or a statement from the person who financially supports you stating they help provide for your basic needs), 2) proof of residency (drivers license , a piece of mail showing your address, a statement from person you live with verifying you live at their address), 3) your social security card, 4) photo ID , and 5) your insurance card (if you have commercial insurance you must call to obtain a prior authorization number before you arrive to your first appointment) . If you do not bring these items, you will not be seen.) Pedro Long, PAC [Physician Transit Specialist] - 06/02/16 11:30 am (The above appointment is with Pedro Long.)
[2016-05-26] MEDS: Ibuprofen 400 MG TABLET PO PRN ×2 (15:05→20:54)
[2016-05-26] MEDS: *HR* LORazepam 1 MG TABLET PO PRN ×2 (16:56→20:55)
[2016-05-26] MEDS: MOM Conc 10 ML UD.LIQ PO PRN (20:23)
[2016-05-26] MEDS: traZODone 50 MG TABLET PO PRN (21:44)
[2016-05-27] MEDS: hydrOXYzine pamoate 25 MG CAPSULE PO PRN ×3 (00:45→20:18)
[2016-05-27] MEDS: *HR* LORazepam 1 MG TABLET PO PRN ×4 (05:09→21:06)
[2016-05-27] MEDS: OXcarbazepine 150 MG TABLET PO SCH ×2 (08:43→20:19)
[2016-05-27] MEDS: Doxycycline 100 MG CAPSULE PO SCH ×2 (08:44→20:22)
[2016-05-27] MEDS: Gabapentin 300 MG CAPSULE PO SCH ×3 (08:44→20:21)
[2016-05-27] MEDS: Lithium Carbonate ER 300 MG TABLET.ER PO SCH ×3 (08:45→20:22)
[2016-05-27] MEDS: clonazePAM 0.5 MG TABLET PO SCH ×3 (08:45→20:22)
[2016-05-27] MEDS: OLANZapine 5 MG TAB.RAPDIS PO SCH ×2 (08:46→20:18)
[2016-05-27] MEDS: Nicotine 21 MG PATCH.TD24 TD SCH (08:48)
[2016-05-27] MEDS: Ibuprofen 400 MG TABLET PO PRN (08:59)
--- NOTE | 2016-05-27 14:10 | Psychiatry Progress Note ---
Date of Encounter: 05/27/16 Time of Encounter: 14:08 Subjective Interval history: Patient seen for follow-up. She is concerned about her rash and requested dermatology consultation to evaluate and treat. She continued to be occupied with multiple somatic complaints in addition to asking to be discharged. Nursing staff and I explained to patient's criteria for discharge and the voluntary status does not mean that she will be discharged when she decides. She is irritable, white and anxious. Review of Systems Psychiatric: Reports: depression, anxiety, abnormal sleep pattern, change in appetite, difficulty concentrating, hopelessness, mood swings, panic attacks Objective: Exam Patient orientation: Yes Person, Yes Time, Yes Place Level of alertness: Alert Patient appearance: Appropriate, Well Groomed Behavior: cooperative, nervous, tearful, agitated, restless, uncooperative Psychomotor activity: Normal Eye contact: Fleeting Contact Mood description: Angry, Anxious, Labile, Irritable Affect description: congruent with mood, labile, dysphoric Speech pattern: Normal rate, Normal rhythm, Normal tone Speech volume: Normal Thought process: Linear, Goal Oriented Thought content: No Suicidal ideation, No Homicidal ideation, No Overt delusions Perceptual disturbances: No Auditory hallucinations, No Visual hallucinations Judgment: Fair Insight: Partial Results - Vital Signs Vital Signs: Temp Pulse Resp BP Pulse Ox 98.4 F 88 16 112/80 99 05/27/16 09:00 05/27/16 09:00 05/27/16 09:00 05/27/16 09:00 05/19/16 10:13 Assessment and Plan (1) Bipolar disorder, curr episode depressed, severe, w/psychotic features Current visit: Yes Status: Acute Plan: Continue hospitalization, Close observation, Suicide Precautions per unit protocol, Encourage participation in unit milieu, Group Therapy, Monitor sleep, Monitor appetite Risks, benefits, side effects, alternatives discussed w/pt: Yes Patient agreeable to treatment: Yes Consult Discharge Plan - Plan Referrals: [facility] [Outside] - 05/30/16 1:00 pm (The above appointment is with Elizabeth Flores. When you come to your first appointment, you will have an orientation to the agency and you will meet with a counselor. Please bring the following with you to your first visit to the clinic: 1) proof of household income (two consecutive pay stubs, social security award letter, bank statement, statement letter from [facility], child support statement, IRS 1040 or W2 form, or a statement from the person who financially supports you stating they help provide for your basic needs), 2) proof of residency (drivers license , a piece of mail showing your address, a statement from person you live with verifying you live at their address), 3) your social security card, 4) photo ID , and 5) your insurance card (if you have commercial insurance you must call to obtain a prior authorization number before you arrive to your first appointment) . If you do not bring these items, you will not be seen.) Pedro Long, PAC [Physician Weighing Station Operator] - 06/02/16 11:30 am (The above appointment is with Pedro Long.)
[2016-05-27] MEDS: traZODone 50 MG TABLET PO PRN (21:49)
[2016-05-28] MEDS: *HR* LORazepam 1 MG TABLET PO PRN ×4 (05:05→22:35)
[2016-05-28] MEDS: hydrOXYzine pamoate 25 MG CAPSULE PO PRN (05:05)
[2016-05-28] MEDS: Lithium Carbonate ER 300 MG TABLET.ER PO SCH ×3 (08:57→21:20)
[2016-05-28] MEDS: Doxycycline 100 MG CAPSULE PO SCH ×2 (08:57→21:11)
[2016-05-28] MEDS: Gabapentin 300 MG CAPSULE PO SCH ×3 (08:58→21:19)
[2016-05-28] MEDS: clonazePAM 0.5 MG TABLET PO SCH ×3 (08:58→21:13)
[2016-05-28] MEDS: OXcarbazepine 150 MG TABLET PO SCH ×2 (08:58→21:18)
[2016-05-28] MEDS: OLANZapine 5 MG TAB.RAPDIS PO SCH ×2 (08:59→21:16)
[2016-05-28] MEDS: Nicotine 21 MG PATCH.TD24 TD SCH (09:30)
[2016-05-28] MEDS: Ibuprofen 400 MG TABLET PO PRN (11:04)
--- NOTE | 2016-05-28 12:34 | Dermatology Consult Note ---
Date of Encounter: 05/31/16 Time of Encounter: 12:00 History of Present Illness Reason for Consult: RASH History of Present Illness: 30 Y/O WF IN PSYCH [facility] FOR S/A AND DEPRESSION S/P RASH SINCE GIVEN MINAPRESS TO "CALM HER DOWN". DOSE GIVEN THURSDAY AND RASH SOON AFTERWARDS. RASH IS WIDESPREAD AND ITCHY AND WORSENING PER PT. NO BREAKDOWN OF SKIN IN MOUTH OR GENITALS. NO BLISTERS. NO PAIN. PT MAINLY ITCHY Review of Systems General/Constitutional: Patient denies fevers, chills, nor recent unintended weight loss, night sweats, no change in appetite or malaise. Hematologic: Patient denies new or enlarging lumps or bumps. Skin: Patient denies new or changing moles, or rash other than what is mentioned above. Past Med Surg Social Fam HX - Past Medical History Medical history: asthma, other Psychiatric history: bipolar, previous psychiatric hospitalization, other - Past Surgical History Surgical History: appendectomy, cholecystectomy - Social History Smoking Status: Current some day smoker Smokeless Tobacco Status: No Alcohol use: none Drug use: marijuana, methamphetamine, IVDU, other Medications and Allergies Dicyclomine [Bentyl] 20 mg PO QID PRN 05/12/16 [History] HydrOXYzine Pamoate [Vistaril] 50 mg PO Q6H PRN #60 capsule 05/13/16 [Rx] Vitamin B Complex/Vit C/Vit E [Stresstab] 1 each PO DAILY tablet 05/13/16 [Rx] Doxycycline 100 mg PO BID capsule 05/29/16 [Rx] Gabapentin [Neurontin] 600 mg PO TID #90 capsule 05/29/16 [Rx] [place] Carbonate ER [Lithobid] 300 mg PO TID #90 tablet.er 05/29/16 [Rx] OLANZapine [Zyprexa Zydis] 7.5 mg PO BID #60 tab.rapdis 05/29/16 [Rx] Oxcarbazepine [Trileptal] 450 mg PO BID #90 tablet 05/29/16 [Rx] PredniSONE 20 mg PO DAILY tablet 05/29/16 [Rx] PredniSONE 40 mg PO DAILY tablet 05/29/16 [Rx] Triamcinolone Acet 0.1% CRM [Kenalog] 1 gm TP BID cream..g. 05/29/16 [Rx] Allergies Amoxicillin [From Amoxil] Allergy (Verified 05/12/16 00:45) Rash haloperidol [From Haldol] Allergy (Verified 05/12/16 00:45) Rash ketorolac [From Toradol] Allergy (Verified 05/12/16 00:45) Rash Penicillins [PCN] Allergy (Verified 05/12/16 00:45) Rash Prazosin Allergy (Verified 05/29/16 03:08) Rash Examination Vital Signs: Temp Pulse Resp BP Pulse Ox 98.7 F 99 18 119/70 99 05/27/16 20:45 05/27/16 20:45 05/27/16 20:45 05/27/16 20:45 05/19/16 10:13 General Examination: The patient appears alert, oriented X3, in no acute distress, healthy-appearing , FLAT mood. A detailed skin examination of sites including: scalp, head, neck, face, conjunctive, lids, lips, back, chest/breast/axilla, abdomen, bilateral upper extremities including hands/digits/fingernails, DIFFUSE CONFLUENT SCATTERED ERYTHEMATOUS/PINK PATCHES AND MACULES AROUND 70 BSA SPARING FACE AND HEAD - Assessment and Plan (1) Rash Status: Acute PT W/ A CLASSIC MORBILLIFORM DRUG ERUPTION. REC AVOID MINAPRESS IN THE FUTURE. REC PO STEROIDS (VERIFIED W/ PSYCHIATRIST I'M CONCERNED MAY CAUSE MANIC EPISODE) W/ TOPICAL TAC APPLICATION WELL. SHOULD SLOWLY IMPROVE. NO EVIDENCE OF SERIOUS DURG ERUPTION. PLS CALL ME IF FURTHER CHANGE IN CONDITION OR QUESTIONS. Procedure: Dermatology Date of procedure: 05/28/16 Procedure: NO PROCEDURES DONE Consult Discharge Plan - Plan Instructions: Depression (DC) Referrals: [facility] [Outside] (You are going into respite at [facility] on discharge from the hospital. While there, clinic staff will open a case for you to become a client , and you will be seen daily by the clinic counselors and casework supervisor.) Pedro Long, PAC [Physician Tail Puller] - 06/02/16 11:30 am (The above appointment is with Pedro Long.) Prescriptions: Gabapentin [Neurontin] 600 mg PO TID #90 capsule [place] Carbonate ER [Lithobid] 300 mg PO TID #90 tablet.er OLANZapine [Zyprexa Zydis] 7.5 mg PO BID #60 tab.[place] Oxcarbazepine [Trileptal] 450 mg PO BID #90 tablet
--- NOTE | 2016-05-28 13:33 | Psychiatry Progress Note ---
Date of Encounter: 05/28/16 Time of Encounter: 13:15 Subjective Interval history: Patient is here for follow-up. Dermatology consultation was done to evaluate her rash and recommendation and treatment are appreciated. Patient is reported cooperative and compliant with medication and participating in some activities. Discharge plans are being finalized for placement in respite after discharge. She denied any suicidal ideation and her mental status is clear now presenting any paranoia or delusions. Review of Systems Psychiatric: Reports: depression, anxiety, abnormal sleep pattern, change in appetite, difficulty concentrating, hopelessness, mood swings, panic attacks Objective: Exam Patient orientation: Yes Person, Yes Time, Yes Place Level of alertness: Alert Patient appearance: Appropriate, Well Groomed Behavior: calm, cooperative Psychomotor activity: Normal Eye contact: Maintains Eye Contact Mood description: Euthymic/stable, Anxious Affect description: congruent with mood, labile Speech pattern: Normal rate, Normal rhythm, Normal tone Speech volume: Normal Thought process: Linear, Goal Oriented Thought content: No Suicidal ideation, No Homicidal ideation, No Overt delusions Perceptual disturbances: No Auditory hallucinations, No Visual hallucinations Judgment: Fair Insight: Partial Results - Vital Signs Vital Signs: Temp Pulse Resp BP Pulse Ox 98.7 F 99 18 119/70 99 05/27/16 20:45 05/27/16 20:45 05/27/16 20:45 05/27/16 20:45 05/19/16 10:13 Assessment and Plan (1) Bipolar disorder, curr episode depressed, severe, w/psychotic features Current visit: Yes Status: Acute Plan: Continue hospitalization, Close observation, Suicide Precautions per unit protocol, Encourage participation in unit milieu, Group Therapy, Monitor sleep, Monitor appetite Risks, benefits, side effects, alternatives discussed w/pt: Yes Patient agreeable to treatment: Yes Consult Discharge Plan - Plan Referrals: [facility] [Outside] (You are going into respite at [facility] on discharge from the hospital. While there, clinic staff will open a case for you to become a client , and you will be seen daily by the clinic counselors and geriatric case manager.) Pedro Long, PAC [Physician Quality Assurance Assessor] - 06/02/16 11:30 am (The above appointment is with Pedro Long.)
[2016-05-28] MEDS: predniSONE 20 MG TABLET PO SCH (15:14)
[2016-05-28] MEDS: TRIAMCINOLONE ACET 0.1% TP SCH ×2 (15:20→21:57)
[2016-05-29] MEDS: OXcarbazepine 150 MG TABLET PO SCH (08:02)
[2016-05-29] MEDS: Doxycycline 100 MG CAPSULE PO SCH (08:02)
[2016-05-29] MEDS: Nicotine 21 MG PATCH.TD24 TD SCH (08:03)
[2016-05-29] MEDS: OLANZapine 5 MG TAB.RAPDIS PO SCH (08:03)
[2016-05-29] MEDS: Lithium Carbonate ER 300 MG TABLET.ER PO SCH ×2 (08:03→14:45)
[2016-05-29] MEDS: predniSONE 20 MG TABLET PO SCH (08:04)
[2016-05-29] MEDS: clonazePAM 0.5 MG TABLET PO SCH ×2 (08:04→14:43)
[2016-05-29] MEDS: Gabapentin 300 MG CAPSULE PO SCH ×2 (08:04→14:45)
[2016-05-29] MEDS: TRIAMCINOLONE ACET 0.1% TP SCH (09:16)
[2016-05-29 09:24] VITALS: BP 122/64
[2016-05-29] MEDS: *HR* LORazepam 1 MG TABLET PO PRN (10:14)
--- NOTE | 2016-05-29 11:55 | Discharge Summary ---
Date of Encounter: 05/29/16 Time of Encounter: 11:00 Diagnosis - Discharge Diagnosis (1) Bipolar disorder, curr episode depressed, severe, w/psychotic features Status: Acute Medications - Discharge Medications Prescriptions: Gabapentin [Neurontin] 600 mg PO TID #90 capsule [place] Carbonate ER [Lithobid] 300 mg PO TID #90 tablet.er OLANZapine [Zyprexa Zydis] 7.5 mg PO BID #60 tab.rapdis Oxcarbazepine [Trileptal] 450 mg PO BID #90 tablet Dicyclomine [Bentyl] 20 mg PO QID PRN 05/12/16 [History] HydrOXYzine Pamoate [Vistaril] 50 mg PO Q6H PRN #60 capsule 05/13/16 [Rx] Vitamin B Complex/Vit C/Vit E [Stresstab] 1 each PO DAILY tablet 05/13/16 [Rx] Doxycycline 100 mg PO BID capsule 05/29/16 [Rx] Gabapentin [Neurontin] 600 mg PO TID #90 capsule 05/29/16 [Rx] [place] Carbonate ER [Lithobid] 300 mg PO TID #90 tablet.er 05/29/16 [Rx] OLANZapine [Zyprexa Zydis] 7.5 mg PO BID #60 tab.rapdis 05/29/16 [Rx] Oxcarbazepine [Trileptal] 450 mg PO BID #90 tablet 05/29/16 [Rx] PredniSONE 20 mg PO DAILY tablet 05/29/16 [Rx] PredniSONE 40 mg PO DAILY tablet 05/29/16 [Rx] Triamcinolone Acet 0.1% CRM [Kenalog] 1 gm TP BID cream..g. 05/29/16 [Rx] Allergies Amoxicillin [From Amoxil] Allergy (Verified 05/12/16 00:45) Rash haloperidol [From Haldol] Allergy (Verified 05/12/16 00:45) Rash ketorolac [From Toradol] Allergy (Verified 05/12/16 00:45) Rash Penicillins [PCN] Allergy (Verified 05/12/16 00:45) Rash Prazosin Allergy (Verified 05/29/16 03:08) Rash Results Procedures and tests throughout hospitalization: Completed Lab Orders Category Date Time Status Chem 7 [Basic Metabolic Panel] Routine Lab 05/23/16 09:00 Completed [place] Routine Lab 05/23/16 09:00 Completed Urinalysis Reflex Cult & Micro [URIN] Routine Lab 05/20/16 19:50 Completed Provider Date of admission: 05/19/16 16:24 Primary care physician: PCP NO Consults: 05/20/16 14:46 Consult to CHIP APPLYING MACHINE TENDER [CONS] Routine Consulting Provider: SLASHER SAWYER Zeny Reason for Consult: HX endometriosis, multiple surgeries, watery discharge Call Completed: Yes 05/24/16 10:08 Consult to Pastoral Services [CONS] Routine Comment: 05/27/16 16:26 Consult to Dermatology [CONS] Routine Consulting Provider: Dermatology Zeny Reason for Consult: rash Time Notified: 16:26 Call Completed: Yes Discharging clinician: Theodore Fortune Assessment and Plan - Patient/Caregiver Discharge Instructions Activity: resume usual activities as tolerated Diet: regular diet - Follow up Plan Follow up with: [facility] [Outside] (You are going into respite at [facility] on discharge from the hospital. While there, clinic staff will open a case for you to become a client , and you will be seen daily by the clinic counselors and continuous pillowcase cutter.) Pedro Long, PAC [Physician Fishing Accessories Maker] - 06/02/16 11:30 am (The above appointment is with Pedro Long.) Functional capacity at discharge: independent ambulation Overall status at discharge: Stable Disposition: Home, Self-Care Hospital Course Hospital course: Ms. Lorenzana is a 30 year old female admitted for evaluation treatment off bipolar disorder with psychosis. For details on admission please see H&P On the units patient's was reported to display significant paranoid delusions, her medication was reviewed and adjusted including lithium, olanzapine and Trileptal. Patient responded well to medication and her paranoia improved. She had an allergic reaction to prazosin and it was discontinued and patient was seen by dermatology consult and treated with steroids. Patient participated in activities and groups and was cooperative and compliant with her medications. Prior to discharge patient was medically stable, future oriented and denies suicidal ideation or hallucinations. Her discharge plans were completed by the medical social consultant. - Time Spent with Patient Total time spent providing and/or coordinating discharge services: Less than 30 minutes Quality - Multiple Antipsychotics Patient discharged on 2 or more antipsychotic medications: No Procedures - Procedures Procedures: Medication Management, Crisis Stabilization, Supportive Therapy, Group Therapy, Psychoeducational Therapy Mental Status Exam - Mental Status Exam Patient orientation: Yes Person, Yes Time, Yes Place Level of alertness: Alert Patient appearance: Appropriate, Well Groomed Behavior: calm, cooperative Psychomotor activity: Normal Eye contact: Maintains Eye Contact Mood description: Euthymic/stable Affect description: congruent with mood, full range Speech pattern: Normal rate, Normal rhythm, Normal tone Speech Volume: Normal Thought process: Linear, Goal Oriented Thought Content: No Suicidal ideation, No Homicidal ideation, No Overt delusions Perceptual Disturbances: No Auditory hallucinations, No Visual hallucinations Judgment: Limited Insight: Partial
[2016-06-04] MEDS ORDERED: predniSONE 20 MG TABLET PO SCH (09:00)
== END 2016-05-29 14:50 | disposition home or self-care (01) | DRG 753 ==
LOC: EMEROO 10:08 → SUATTDRO 16:24 → 1ANU 16:24
PROVIDERS: ADMIT Psychiatry & Neurology Psychiatry; ATTEND Psychiatry & Neurology Psychiatry

== ENCOUNTER 2017-04-21 13:26 | Inpatient (IN) ==
[2017-04-21 14:01] LABS: Basophils # 0.1 K/mcL (0.0-0.2); Basophils % 0.9 %; Eosinophils # 0.1 K/mcL (0.0-0.6); Eosinophils % 0.6 %; Hematocrit 41.8 % (35.3-44.9); Hemoglobin 14.2 g/dL (11.5-15.4); Immature Granulocytes % 0.3 % (0-4); Lymphocytes # 3.2 K/mcL (0.6-4.6); Lymphocytes % 32.4 %; Mean Corpuscular Hemoglobin 31.7 pg (28.0-33.3); Mean Corpuscular Volume 93.3 fL (83.0-100.0); Mean Platelet Volume 9.8 fL (9.4-12.4); Monocytes # 0.7 K/mcL (0.0-1.3); Monocytes % 6.8 %; Neutrophils # 5.8 K/mcL (1.6-8.9); Platelet Count 350 K/mcL (140-400); Red Blood Count 4.48 M/mcL (3.82-4.97); Red Cell Distribution Width 12.1 % (11.5-14.5)
[2017-04-21] MEDS ORDERED: 0.9 % Sodium Chloride 1,000 ML IVC ONE (14:02)
--- NOTE | 2017-04-21 14:06 | Emergency Department Note ---
Disposition Clinical Impression: Polysubstance dependence including opioid type drug, continuous use Bipolar disorder Qualifiers: Active/Remission status: currently active Current bipolar episode type: mixed Psychotic features: with psychotic features Disposition: Admitted As Inpatient Referrals: NONE,PCP [Primary Care Provider] - Forms: ED Satisfaction Letter Altered Mental Status HPI - General Chief Complaint: ED Psychiatric Symptoms Stated Complaint: overdose, SI, paranoia, auditory hallucinations Time Seen by Provider: 04/21/17 13:29 Source: patient, EMS, other (boyfriend) Limitations: altered mental status - History of Present Illness HPI Narrative: Felisha Lorenzana, 31F, past medical history of heroin/meth abuse, dx bipolar psychosis, bib ems accompanied by boyfriend, patient presents with increased somnolence for the past 3 days. Was seen earlier today for altered mental status , has had falls in past few days, some witnessed by boyfiend who has caught her when in her presence. Symptoms obtained from patient with history supplemented by boyfiend. Patient reports mild headache, no trauma, nausea, no fever, shortness of breath, or chest pain. Boyfriend has not witnessed patient have any seizure activity, trauma, or vomiting. Per EMS and boyfriend, she has voiced suicidal ideation and auditory hallucination. She is conscious but does not respond to most commands. Only reported med is Xanax, hx of treatment of bipolar with psychosis with lithium/olanzapine/oxcarbazepine, no longer taking. MD complaint: altered mental status Onset (ago): day(s) Associated symptoms: Reports: headaches. Denies: chest pain, fever, seizure, syncope - Related Data Home Medications Medication Instructions Recorded Confirmed Dicyclomine [Bentyl] 20 mg PO QID PRN 05/12/16 05/19/16 Previous Rx's Medication Instructions Recorded HydrOXYzine Pamoate [Vistaril] 50 mg PO Q6H PRN #60 capsule 05/13/16 Vitamin B Complex/Vit C/Vit E 1 each PO DAILY tablet 05/13/16 [Stresstab] Doxycycline 100 mg PO BID capsule 05/29/16 Gabapentin [Neurontin] 600 mg PO TID #90 capsule 05/29/16 Frederica Carbonate ER [Lithobid] 300 mg PO TID #90 tablet.er 05/29/16 OLANZapine [Zyprexa Zydis] 7.5 mg PO BID #60 tab.rapdis 05/29/16 OXcarbazepine [Trileptal] 450 mg PO BID #90 tablet 05/29/16 Triamcinolone Acet 0.1% CRM 1 gm TP BID cream..g. 05/29/16 [Kenalog] predniSONE [PredniSONE] 20 mg PO DAILY tablet 05/29/16 predniSONE [PredniSONE] 40 mg PO DAILY tablet 05/29/16 Ibuprofen [Motrin] 600 mg PO Q6HR PRN #30 tab 06/10/16 Loratadine [Claritin] 10 mg PO DAILY #30 capsule 07/16/16 Albuterol Sulfate [Ventolin Hfa] 2 puff IH Q4-6H PRN #1 hfa.aer.ad 02/24/17 Azithromycin [Zithromax] 250 - 500 mg PO DAILY #6 tablet 02/24/17 Meclofenamate Sodium 50 - 100 mg PO Q4-6H PRN #30 02/24/17 capsule Promethazine/Dextromethorphan 5 ml PO Q4-6H PRN #120 ml 02/24/17 [Promethazine-Dm Syrup] predniSONE [PredniSONE] 40 mg PO DAILY #10 tablet 02/24/17 Allergies Allergy/AdvReac Type Severity Reaction Status Date / Time Amoxicillin [From Amoxil] Allergy Rash Verified 04/21/17 13:33 haloperidol [From Haldol] Allergy Rash Verified 04/21/17 13:33 Penicillins [PCN] Allergy Rash Verified 04/21/17 13:33 Prazosin Allergy Rash Verified 04/21/17 13:33 All systems ED: reviewed and negative except as stated. Review of Systems: As Per HPI Past Medical History - Past Medical History Medical history: Reports: asthma, hypertension Surgical history: Reports: appendectomy, cholecystectomy Psychiatric history: Reports: bipolar, previous psychiatric hospitalization, other [employer] history: Reports: endometriosis, other - Social History Smoking Status: Current every day smoker Smokeless Tobacco Status: No Alcohol use: Reports: none Drug use: Reports: opiates, marijuana, methamphetamine, IV Drug Use, prescription drug abuse, other Physical Exam - General Limitations: altered mental status General appearance: appears intoxicated, obtunded - Head Head exam: atraumatic - Eye Eye exam: Absent: miosis - ENT ENT exam: mucous membranes moist - Neck Neck exam: Present: full ROM - Cardiovascular Cardiovascular exam: Present: regular rate, normal rhythm - Abdominal Exam Abdominal exam: Present: tenderness (mild on palpation generalized) Course Course Narrative: Patient seen and evaluated on arrival. Felisha presents by EMS accompanied by boyfriend for altered mental status/increased somnolence. She was seen earlier today in early AM for AMS with +UDS for benzodiazepines and marijuana. ROS: + headache/abdominal pain/multiple falls, -n/v/syncope/seizures. No trauma seen on exam, hypersomnolence. ECG unremarkable, NSR without ST abnormalities, telemetry unremarkable. She was evaluated for bleed with CT head, negative for acute abnormality. CT abd/pelvis also negative. CBC, CMP, hepatic panel unremarkable. Repeat urine by straight cath shows no changes (+benzo, +marijuana , unremarkable salicylate and tylenol labs). Spoke to admitting hospitalist for interest in admission with subsequent psychiatric evaluation. Vital Signs Temperature 98.5 F 04/21/17 13:33 Pulse Rate 92 04/21/17 13:33 Respiratory Rate 20 04/21/17 13:33 Blood Pressure 121/84 04/21/17 13:33 O2 Sat by Pulse Oximetry 98 04/21/17 13:33 Temperature 98.5 F 04/21/17 13:35 Pulse Rate 77 04/21/17 18:36 Respiratory Rate 20 04/21/17 18:36 Blood Pressure 138/77 04/21/17 18:36 O2 Sat by Pulse Oximetry 99 04/21/17 18:36 Oxygen Delivery Oxygen Delivery Room Air Altered Mental Status - Differential Diagnosis Likely: altered mental status - Medical Records Medical records reviewed: Yes I reviewed the patient's medical records. - Lab Data Lab results reviewed: Yes I reviewed the patient's lab results. Result diagrams: 04/21/17 13:47 04/21/17 13:47 Lab Results 04/21/17 04/21/17 04/21/17 Range/Units 13:47 13:47 13:47 WBC 9.8 (4.3-11.1) K/mcL RBC 4.48 (3.82-4.97) M/mcL Hgb 14.2 (11.5-15.4) g/dL Hct 41.8 (35.3-44.9) % MCV 93.3 (83.0-100.0) fL MCH 31.7 (28.0-33.3) pg MCHC 34.0 (31.6-35.5) g/dL RDW 12.1 (11.5-14.5) % Plt Count 350 (140-400) K/mcL MPV 9.8 (9.4-12.4) fL Immature Gran % 0.3 (0-4) % Seg Neutrophils % 59.0 % Lymphocytes % 32.4 % Monocytes % 6.8 % Eosinophils % 0.6 % Basophils % 0.9 % Neutrophils # 5.8 (1.6-8.9) K/mcL Lymphocytes # 3.2 (0.6-4.6) K/mcL Monocytes # 0.7 (0.0-1.3) K/mcL Eosinophils # 0.1 (0.0-0.6) K/mcL Basophils # 0.1 (0.0-0.2) K/mcL Sodium 140 (136-145) mEq/L Potassium 3.6 (3.5-5.1) mEq/L Chloride 106 (98-107) mEq/L Carbon Dioxide 26 (23-29) mEq/L BUN 19 (6-20) mg/dL Creatinine 0.64 (0.60-1.20) mg/dL Est GFR ( Amer) > 60 (> 60) Est GFR (Non-Af Amer) > 60 (> 60) BUN/Creatinine Ratio 30 H (6-26) Glucose 106 H (70-105) mg/dL Calculated Osmolality 293 (280-300) Calcium 9.8 (8.6-10.3) mg/dL Total Bilirubin 0.5 (0.3-1.0) mg/dL Direct Bilirubin 0.1 (0.0-0.2) mg/dL Indirect Bilirubin 0.4 (0.0-1.2) mg/dL AST 12 L (13-39) Units/L ALT 9 (7-52) Units/L Alkaline Phosphatase 53 (34-104) Units/L Ammonia (16-53) mcmol/L Serum Total Protein 8.1 (6.4-8.9) g/dL Albumin 5.1 (3.5-5.7) g/dL Globulin 3.0 (2.4-3.5) g/dL Albumin/Globulin Ratio 1.7 (1.1-2.2) Serum , Qual Negative (Negative) Urine Color (Yellow) Urine Clarity (Clear) Urine pH (5.0-8.0) pH Units Ur Specific [place] (1.010-1.025) Urine Protein (Neg-Trace) mg/dL Urine Glucose (UA) (Normal) mg/dL Urine Ketones (Negative) mg/dL Urine Blood (Negative) Urine Nitrite (Negative) Urine Bilirubin (Negative) Urine Urobilinogen (Normal) mg/dL Ur Leukocyte Esterase (Negative) Urine Microscopic RBC (0-3) per hpf Urine Microscopic WBC (0-3) per hpf Ur Squamous Epith Cells (None-Few) per lpf Urine Bacteria (None-Few) per hpf Hyaline Casts (None-Few) per lpf Salicylates < 5.0 L (15.0-30.0) mg/dL Urine Opiates Screen (Lkvxsh=440) ng/mL Acetaminophen < 1.0 L (10-30) mcg/mL Ur Barbiturates Screen (Jmzesa=763) ng/mL Ur Phencyclidine Scrn (Cutoff=25) ng/mL Ur Amphetamines Screen (Jcqodz=4671) ng/mL U Benzodiazepines Scrn (Mctlte=632) ng/mL Urine Cocaine Screen (Cutoff= 300) ng/mL U Marijuana (THC) Screen (Cutoff = 50) ng/mL Ethyl Alcohol < 10 (0-10) mg/dL 04/21/17 04/21/17 04/21/17 Range/Units 15:10 17:30 17:30 WBC (4.3-11.1) K/mcL RBC (3.82-4.97) M/mcL Hgb (11.5-15.4) g/dL Hct (35.3-44.9) % MCV (83.0-100.0) fL MCH (28.0-33.3) pg MCHC (31.6-35.5) g/dL RDW (11.5-14.5) % Plt Count (140-400) K/mcL MPV (9.4-12.4) fL Immature Gran % (0-4) % Seg Neutrophils % % Lymphocytes % % Monocytes % % Eosinophils % % Basophils % % Neutrophils # (1.6-8.9) K/mcL Lymphocytes # (0.6-4.6) K/mcL Monocytes # (0.0-1.3) K/mcL Eosinophils # (0.0-0.6) K/mcL Basophils # (0.0-0.2) K/mcL Sodium (136-145) mEq/L Potassium (3.5-5.1) mEq/L Chloride (98-107) mEq/L Carbon Dioxide (23-29) mEq/L BUN (6-20) mg/dL Creatinine (0.60-1.20) mg/dL Est GFR ( Amer) (> 60) Est GFR (Non-Af Amer) (> 60) BUN/Creatinine Ratio (6-26) Glucose (70-105) mg/dL Calculated Osmolality (280-300) Calcium (8.6-10.3) mg/dL Total Bilirubin (0.3-1.0) mg/dL Direct Bilirubin (0.0-0.2) mg/dL Indirect Bilirubin (0.0-1.2) mg/dL AST (13-39) Units/L ALT (7-52) Units/L Alkaline Phosphatase (34-104) Units/L Ammonia 36 (16-53) mcmol/L Serum Total Protein (6.4-8.9) g/dL Albumin (3.5-5.7) g/dL Globulin (2.4-3.5) g/dL Albumin/Globulin Ratio (1.1-2.2) Serum , Qual (Negative) Urine Color Yellow (Yellow) Urine Clarity Cloudy A (Clear) Urine pH 6.0 (5.0-8.0) pH Units Ur Specific [place] 1.028 H (1.010-1.025) Urine Protein Negative (Neg-Trace) mg/dL Urine Glucose (UA) Normal (Normal) mg/dL Urine Ketones 80 H (Negative) mg/dL Urine Blood Negative (Negative) Urine Nitrite Negative (Negative) Urine Bilirubin Negative (Negative) Urine Urobilinogen Normal (Normal) mg/dL Ur Leukocyte Esterase Negative (Negative) Urine Microscopic RBC 0-3 (0-3) per hpf Urine Microscopic WBC 5-15 H (0-3) per hpf Ur Squamous Epith Cells Many H (None-Few) per lpf Urine Bacteria Many H (None-Few) per hpf Hyaline Casts None Seen (None-Few) per lpf Salicylates (15.0-30.0) mg/dL Urine Opiates Screen Negative (Slydel=969) ng/mL Acetaminophen (10-30) mcg/mL Ur Barbiturates Screen Negative (Rykjwd=616) ng/mL Ur Phencyclidine Scrn Negative (Cutoff=25) ng/mL Ur Amphetamines Screen Negative (Uuxtkq=7965) ng/mL U Benzodiazepines Scrn Positive H (Wiiqvn=486) ng/mL Urine Cocaine Screen Negative (Cutoff= 300) ng/mL U Marijuana (THC) Screen Positive H (Cutoff = 50) ng/mL Ethyl Alcohol (0-10) mg/dL - EKG Data EKG attestation: Yes I reviewed and interpreted this EKG. EKG results narrative: ECG obtained at 1415, NSR at 66, normal axis, no ischemic changes, normal r wave progression Attestation Statement - Attestation Attestation: I, Luís Templeton DO, examined this patient [id number] and my medical decision-making was reviewed with Wes Couch PGY-1, Resident Physician. I agree with the documented findings, disposition and treatment plan as described except to the extent set forth below. Please see my progress notes for details. 31-year-old female presents to the emergency room with complaint of altered mentation ataxia generalized weakness. Patient is been seen several times with this over the last several weeks. Patient is a history of substance abuse. Patient denies any drugs or ingestion here today. She was seen in the last 24 hours for similar issue. She was discharged home in medications in her system including benzodiazepines and marijuana. On physical exam here the patient is confused but she follows commands her pupils are reactive shock the muscles are intact. Oral mucosa is patent. Patient's lungs are clear heart is regular. Abdomen is soft but she does have some tenderness on palpation but no point tenderness guarding or rigidity noted. Patient moves all 4 extremities and has good pulses. Patient's skin appears to be normal presentation with no rations lesions or signs of cellulitis. CT imaging of the head chest x-ray CT of the abdomen and pelvis will be ordered and collected this time on urinalysis CBC, chemistry, urine drug screen and medical clearance for psychiatric related illness and suicidal ideation. Patient according to the family as well as the EMS transport team said she is having some hallucinations and describing homicidal/suicidal ideation. Disposition of indeterminate workup is completed and patient's mentation is established and reviewed. See detailed documentation of the physical exam, medical intervention, medical decision- making and disposition in the resident physician's note. No critical care progress patient's treatment course at this time. 1900 Patient has unable to be cleared in the emergency room secondary to continuation of somnolence. Unknown drug toxidrome at this time. Patient denies any specific ingestion. She does have benzodiazepines and marijuana in her system. After workup and imaging modalities are completely unremarkable this time. Patient will be admitted and psychiatric evaluation to be completed when she is medically cleared.
[2017-04-21 14:28] LABS: Alanine Aminotransferase 9 Units/L (7-52); Albumin 5.1 g/dL (3.5-5.7); Albumin/Globulin Ratio 1.7 (1.1-2.2); Alkaline Phosphatase 53 Units/L (34-104); Aspartate Amino Transferase 12 Units/L (13-39); BUN/Creatinine Ratio 30 (6-26); Bilirubin,Direct 0.1 mg/dL (0.0-0.2); Bilirubin,Indirect 0.4 mg/dL (0.0-1.2); Bilirubin,Total 0.5 mg/dL (0.3-1.0); Blood Urea Nitrogen 19 mg/dL (6-20); Calcium 9.8 mg/dL (8.6-10.3); Carbon Dioxide 26 mEq/L (23-29); Chloride 106 mEq/L (98-107); Glucose 106 mg/dL (70-105); Osmolality,Calculated 293 (280-300); Potassium 3.6 mEq/L (3.5-5.1); Sodium 140 mEq/L (136-145); Total Protein 8.1 g/dL (6.4-8.9); eGFR For African Americans > 60 (> 60); eGFR For Non-African Americans > 60 (> 60)
[2017-04-21 14:51] LABS: Acetaminophen < 1.0 mcg/mL (10-30); Ethanol < 10 mg/dL (0-10); Salicylate < 5.0 mg/dL (15.0-30.0)
--- NOTE | 2017-04-21 16:56 | Electrocardiograph Report ---
[address] [address] Test Date: 2017-04-21 Pat Name: Felisha Lorenzana Department: 104 Room: Gender: F Ticket Sorter: : 1985 Requested By: Ash Couch Order Number: [id number] Reading MD: Vero Sylvester Measurements Intervals [place] Rate: 66 P: 59 DE: 164 QRS: 40 QRSD: 97 T: 45 QT: 412 QTc: 425 Interpretive Statements SINUS RHYTHM Electronically Signed On 04-21-2017 16:55:15 EDT by Vero Sylvester
[2017-04-21 17:46] LABS: Bilirubin,Urine Negative (Negative); Blood,Urine Negative (Negative); Clarity,Urine Cloudy (Clear); Color,Urine Yellow (Yellow); Glucose,Urine (UA) Normal (Normal); Ketones,Urine 80 mg/dL (Negative); Leukocyte Esterase,Urine Negative (Negative); Nitrite,Urine Negative (Negative); Protein,Urine Negative (Neg-Trace); Specific Gravity,Urine 1.028 (1.010-1.025); Urobilinogen,Urine Normal (Normal)
[2017-04-21 17:50] LABS: Bacteria,Urine Many per hpf (None-Few); Hyaline Casts,Urine None Seen per lpf (None-Few); Squamous Epithelial Cell,Urine Many per lpf (None-Few)
[2017-04-21 17:59] LABS: Amphetamine Screen,Urine Negative ng/mL (Cutoff=1000); Barbiturate Screen,Urine Negative ng/mL (Cutoff=200); Benzodiazepines Screen,Urine Positive ng/mL (Cutoff=200); Cannabinoid Screen,Urine Positive ng/mL (Cutoff = 50); Cocaine Screen,Urine Negative ng/mL (Cutoff= 300); Opiate Screen,Urine Negative ng/mL (Cutoff=300); Phencyclidine Screen,Urine Negative ng/mL (Cutoff=25)
[2017-04-21 18:05] LABS: RBC,Urine 0-3 per hpf (0-3)
[2017-04-21 19:17] LABS: INR 1.1; Prothrombin Time 12.4 Seconds (9.4-12.1)
--- NOTE | 2017-04-21 23:24 | Internal Med History&Physical ---
Date of Encounter: 04/21/17 Time of Encounter: 23:20 Assessment and Plan (1) Polysubstance (excluding opioids) dependence Current visit: Yes Status: Acute (2) Suicide ideation Current visit: Yes Status: Acute Patient brought in due to auditory hallucination and suicidal ideation will consult psychiatric for further evaluation (3) Bipolar disorder Current visit: Yes Status: Chronic Chronic resume home medication Qualifiers: Active/Remission status: currently active Current bipolar episode type: mixed Current episode severity: severe Psychotic features: with psychotic features Qualified Code(s): F31.64 - Bipolar disorder, current episode mixed, severe, with psychotic features (4) Polysubstance dependence including opioid type drug, continuous use Current visit: Yes Status: Chronic Chronic polysubstance abuse including opiates, benzos, marijuana, met, heroin (5) Acute metabolic encephalopathy Current visit: No Status: Chronic Mental status changes likely due to multiple drugs (6) UTI (urinary tract infection) Current visit: Yes Status: Acute Acute cystitis without hematuria place on Rocephin IV Qualifiers: Urinary tract infection type: acute cystitis Hematuria presence: without hematuria Qualified Code(s): N30.00 - Acute cystitis without hematuria Internal Medicine - H&P: HPI Chief complaint: mental status changes and suicide ideation Admitted From: Emergency Dept Plans for Post Hospital Care: Home History of present illness: Ms. Lorenzana is a 31 year old female Patient with history of IV drug abuse , polysubstance abuse opiate benzo , marijuana met and heroin patient also has prior psychiatric admission, asthma, bipolar disorder, smoking history patient was seen ealier in emergency room and then discharged patient was brought back by boyfriend via EMS due to patient hearing voices and threatened suicidal ideation patient is admitted patient she is somnolent she wakes up and then just staring into space unable to answer questions appropriately. Evaluation in ER patient has UTI which is unrelated her problems . will consult psych for further evaluation. Past Med Surg Social Fam HX - Past Medical History Medical history: asthma, hypertension Psychiatric history: bipolar, previous psychiatric hospitalization, other - Past Surgical History Surgical History: appendectomy, cholecystectomy - Social History Smoking Status: Current every day smoker Smokeless Tobacco Status: No Alcohol use: none Drug use: opiates, marijuana, methamphetamine, IV Drug Use, prescription drug abuse, other - Family History Mother History Unknown: Yes Internal Medicine - H&P: Meds HydrOXYzine Pamoate [Vistaril] 50 mg PO Q6H PRN #60 capsule 05/13/16 [Rx] Albuterol Sulfate [Ventolin Hfa] 2 puff IH Q4-6H PRN 04/21/17 [History] Gabapentin [Neurontin] 600 mg PO TID 04/21/17 [History] 3 Allergy/AdvReac Type Severity Reaction Status Date / Time Amoxicillin [From Amoxil] Allergy Rash Verified 04/21/17 13:33 haloperidol [From Haldol] Allergy Rash Verified 04/21/17 13:33 Penicillins [PCN] Allergy Rash Verified 04/21/17 13:33 Prazosin Allergy Rash Verified 04/21/17 13:33 ROS unobtainable: due to mental status All Systems PM: A 10-system review of systems was performed and is negative for pertinent findings except as documented above in the HPI. - Constitutional Vitals: Temp Pulse Resp BP Pulse Ox 98.4 F 98 17 170/92 99 04/21/17 22:34 04/21/17 22:34 04/21/17 22:34 04/21/17 22:34 04/21/17 22:34 - Head Head exam: Present: atraumatic, normocephalic - Eye Eye exam: Present: PERRL, conjuntiva pink, sclera anicteric Pupils: Present: PERRL - Neck Neck exam general surgery: Present: supple, trachea midline. Absent: lymphadenopathy - Respiratory Respiratory exam: Present: CTAB. Absent: accessory muscle use, rales, rhonchi, wheezes - Cardiovascular Cardiovascular exam: Present: RRR, +S1, +S2. Absent: diastolic murmur, gallop, rubs, systolic murmur - GI/Abdominal GI/Abdominal exam: Present: normal bowel sounds, soft, no peritoneal signs. Absent: distended, tenderness - Extremities Exam Extremities exam: Present: warm, radial pulses palpable and symmetrical. Absent : calf tenderness, cyanotic, pedal edema - Neurological Exam Neurological exam: Present: CN II-XII intact, oriented X3, no focal deficits. Absent: pronater drift, facial droop, speech deficit - Skin Skin exam: Present: dry, intact Internal Med - H&P Results - Labs CBC & Chem 7: 04/21/17 13:47 04/21/17 13:47
[2017-04-21] MEDS ORDERED: traMADol 50 MG TABLET PO PRN (23:28)
[2017-04-21] MEDS ORDERED: Naloxone 0.4 MG/ML INJ IVP PRN ×2 (23:28→23:48)
[2017-04-21] MEDS ORDERED: Acetaminophen 325 MG TABLET PO PRN (23:28)
[2017-04-22] MEDS: 0.9 % Sodium Chloride 1,000 ML IVC SCH ×3 (01:42→22:43)
[2017-04-22] MEDS: *HR* Enoxaparin 40 MG/0.4 ML SYRINGE SQ SCH (05:10)
[2017-04-22 06:04] LABS: Hematocrit 39.5 % (35.3-44.9); Hemoglobin 13.4 g/dL (11.5-15.4); Mean Corpuscular HGB Conc 33.9 g/dL (31.6-35.5); Mean Corpuscular Hemoglobin 31.5 pg (28.0-33.3); Mean Corpuscular Volume 92.9 fL (83.0-100.0); Mean Platelet Volume 10.1 fL (9.4-12.4); Platelet Count 324 K/mcL (140-400); Red Blood Count 4.25 M/mcL (3.82-4.97)
[2017-04-22 06:20] LABS: Alanine Aminotransferase 8 Units/L (7-52); Albumin 4.2 g/dL (3.5-5.7); Albumin/Globulin Ratio 1.7 (1.1-2.2); Alkaline Phosphatase 47 Units/L (34-104); Aspartate Amino Transferase 10 Units/L (13-39); BUN/Creatinine Ratio 36 (6-26); Bilirubin,Total 0.7 mg/dL (0.3-1.0); Blood Urea Nitrogen 21 mg/dL (6-20); Calcium 9.2 mg/dL (8.6-10.3); Carbon Dioxide 25 mEq/L (23-29); Chloride 107 mEq/L (98-107); Globulin 2.5 g/dL (2.4-3.5); Glucose 92 mg/dL (70-105); Magnesium 1.9 mg/dL (1.6-2.6); Osmolality,Calculated 291 (280-300); Potassium 3.5 mEq/L (3.5-5.1); Sodium 139 mEq/L (136-145); Total Protein 6.7 g/dL (6.4-8.9); eGFR For African Americans > 60 (> 60); eGFR For Non-African Americans > 60 (> 60)
--- NOTE | 2017-04-22 10:00 | Internal Med Progress Note ---
Date of Encounter: 04/22/17 Time of Encounter: 10:00 - Assessment and plan (1) Acute metabolic encephalopathy Current Visit: No Status: Chronic Assessment and plan: 1 patient was brought to the emergency department after displaying erratic behavior as well as experiencing auditory and visual hallucinations. She does have a past polysubstance history as well as psychiatric history. She has not been taking her psychiatric medications and she was positive for both marijuana and benzodiazepines which could be contributing to her altered state. She also has a urinary tract infection which could also be a contributing factor. We will consult psychiatry as well as check lithium levels. Continue with antibiotics pending culture sensitivity (2) Suicide ideation Current Visit: Yes Status: Acute Assessment and plan: 1 patient was brought to the ER due to also a hallucinations and suicidal ideations presently patient is denying any suicidal or homicidal ideations. She does have a psychiatric history we did consult psychiatry (3) Bipolar disorder Current Visit: Yes Status: Chronic Assessment and plan: Patient has a history of bipolar disorder she states she has not taken her medication past 3 months. She has been experiencing auditory and visual hallucinations patient's unsure of home medications upon review of records it appears she was on lithium at one time we will check a lithium level. Consult psychiatry Qualifiers: Active/Remission status: currently active Current bipolar episode type: mixed Current episode severity: severe Psychotic features: with psychotic features Qualified Code(s): F31.64 - Bipolar disorder, current episode mixed, severe, with psychotic features (4) UTI (urinary tract infection) Current Visit: Yes Status: Acute Assessment and plan: Acute cystitis without hematuria place on Rocephin pending culture sensitivity Qualifiers: Urinary tract infection type: acute cystitis Hematuria presence: without hematuria Qualified Code(s): N30.00 - Acute cystitis without hematuria (5) Polysubstance dependence including opioid type drug, continuous use Current Visit: Yes Status: Chronic Assessment and plan: patient has past history of sepsis. Both heroin and meth. She tested positive for marijuana as well as benzodiazepines. We will continue to monitor patient continuous cardiac monitoring aspiration precautions fall precautions - Time Spent With Patient less than 15 minutes - Subjective Interval history: Patient is lethargic she arouses to verbal stimuli she is oriented to name and place only she answers questions however she is very groggy during assessment and also sleep. She does admit to auditory hallucinations as well as occasional visual hallucinations. She does admit that she has not been taking her medications as prescribed over the past few months. She denies any suicidal or homicidal ideations at this time - Constitutional Vitals: Temp Pulse Resp BP Pulse Ox 98.3 F 67 20 147/121 100 04/22/17 08:08 04/22/17 08:08 04/22/17 08:08 04/22/17 08:08 04/22/17 08:08 Exam: She is groggy arouses to verbal stimuli she is oriented to name and place only - Head Head exam: Present: atraumatic, normocephalic - Respiratory Respiratory exam: Present: CTAB - Cardiovascular Cardiovascular exam: Present: RRR, +S1, +S2. Absent: diastolic murmur, gallop, rubs, systolic murmur - GI/Abdominal GI/Abdominal exam: Present: normal bowel sounds, soft, no peritoneal signs. Absent: distended, tenderness - Extremities Exam Extremities exam: Present: warm, radial pulses palpable and symmetrical. Absent : calf tenderness, cyanotic, pedal edema - Neurological Exam Neurological exam: Present: altered, strengths equal and symetr throughout. Absent: pronater drift, facial droop, speech deficit - Expanded Neurological Exam Neurological exam expanded: Present: protecting the airway Patient oriented to: Present: person, place Neuro motor strength exam: LUE: 5, RUE: 5, LLE: 5, RLE: 5 Coma Scale Eye Opening: To Voice Coma Scale Motor Response: Localizes to Pain Coma Scale Verbal Response: Confused Coma Scale Total: 12 - Skin Skin exam: Present: dry, intact Internal Medicine: Result - Labs CBC & Chem 7: 04/22/17 05:10 04/22/17 05:10 Labs: Short CBC 04/22/17 Range/Units 05:10 WBC 9.5 (4.3-11.1) K/mcL Hgb 13.4 (11.5-15.4) g/dL Hct 39.5 (35.3-44.9) % Plt Count 324 (140-400) K/mcL BMP 04/22/17 05:10 Sodium 139 Potassium 3.5 Chloride 107 Carbon Dioxide 25 BUN 21 H Creatinine 0.58 L Glucose 92 Calcium 9.2 Liver Function 04/22/17 Range/Units 05:10 Total Bilirubin 0.7 (0.3-1.0) mg/dL AST 10 L (13-39) Units/L ALT 8 (7-52) Units/L Alkaline Phosphatase 47 (34-104) Units/L Albumin 4.2 (3.5-5.7) g/dL - ABG Interpretation ABG results: PT/INR, D-dimer PT 12.4 Seconds (9.4-12.1) H 04/21/17 19:01 Consult Discharge Plan - Plan Referrals: NONE,PCP [Primary Care Provider] -
[2017-04-22] MEDS: Ondansetron 4 MG/2 ML VIAL IVP PRN (10:41)
[2017-04-22] MEDS: cefTRIAXone 1,000 MG in Water for inj. (sterile) 20 ML 10 ML IVP SCH (10:41)
[2017-04-22] MEDS: Gabapentin 300 MG CAPSULE PO SCH ×3 (11:04→22:38)
--- NOTE | 2017-04-22 15:00 | Consult Note ---
Date of Encounter: 04/22/17 Time of Encounter: 13:30 Assessment & Recommendation (1) Acute metabolic encephalopathy Current visit: No Status: Chronic Assessment & Recommendation: Patient is currently lethargic and unable to respond to questions to be evaluated for suicidal ideation. Continue medical stabilization and reconsult. Thank you for consultation. History of Present Illness Patient: known to practice within the last 3 years Requesting Physician: Elysia Zaragoza CNP Reason for consult: Suicidal ideation History of present illness: Ms. Lorenzana is a 31 year old female admitted to the hospital for evaluation and treatment of change in mental status low-energy with possible overdose on multiple medication or heroin. Patient has a history of bipolar disorder and polysubstance abuse, she was hospitalized in psychiatry in the past. Patient is currently being stabilized medically. She is reported to be lethargic most of the time and none communicating. CC: Elysia Zaragoza CNP Past Med Surg Social Fam HX - Past Medical History Medical history: asthma, hypertension - Past Psychiatric History Psychiatric history: Reports: bipolar, previous psychiatric hospitalization - Past Surgical History Surgical History: appendectomy, cholecystectomy - Social History Smoking Status: Current every day smoker Smokeless Tobacco Status: No Alcohol use: none Drug use: opiates, marijuana, methamphetamine, IV Drug Use, prescription drug abuse, other - Family History Mother History Unknown: Yes Medications & Allergies HydrOXYzine Pamoate [Vistaril] 50 mg PO Q6H PRN #60 capsule 05/13/16 [Rx] Albuterol Sulfate [Ventolin Hfa] 2 puff IH Q4-6H PRN 04/21/17 [History] Gabapentin [Neurontin] 600 mg PO TID 04/21/17 [History] 3 Allergy/AdvReac Type Severity Reaction Status Date / Time Amoxicillin [From Amoxil] Allergy Rash Verified 04/21/17 13:33 haloperidol [From Haldol] Allergy Rash Verified 04/21/17 13:33 Penicillins [PCN] Allergy Rash Verified 04/21/17 13:33 Prazosin Allergy Rash Verified 04/21/17 13:33 Psychiatry Exam - Constitutional Vitals: Temp Pulse Resp BP Pulse Ox 98.9 F 70 20 143/89 98 04/22/17 12:00 04/22/17 12:00 04/22/17 12:00 04/22/17 12:00 04/22/17 12:00 General appearance: age & developmentally appropriate, well-groomed, well- nourished - Musculoskeletal Gait: normal Station: relaxed, posturing Strength & Tone: normal for patient - Psychiatric Patient Orientation: Yes Person, Yes Time, Yes Place, Yes Other (Lethargic) Level of alertness: Sedated, Other (Lethargic) Behavior: calm, withdrawn, other (Lethargic) Psychomotor activity: Catatonic Eye Contact: No Eye Contact Mood Description: Other (Lethargic) Affect description: other (Lethargic) Speech Volume: Soft/Quiet Speech pattern: slurred, garbled Language & Vocabulary: limited Thought Process: Thought Blocking, Slowed Thinking Thought Content: Yes Poverty of Content Attention Span Ability: Unable to Sustain Attention Memory Description: Immediate Impaired, Recent Impaired, Remote Impaired Patient Reliability: Not Reliable Historian Fund of knowledge: Yes abstraction ability, No aware of current events Judgment: Poor Insight: None Results - Drug Levels and Toxicology Drug Levels and Toxicology: Drug Levels and Toxicity 04/22/17 10:45 Tribbey < 0.1 L - Labs Labs: Laboratory Last Values WBC 9.5 K/mcL (4.3-11.1) 04/22/17 05:10 RBC 4.25 M/mcL (3.82-4.97) 04/22/17 05:10 Hgb 13.4 g/dL (11.5-15.4) 04/22/17 05:10 Hct 39.5 % (35.3-44.9) 04/22/17 05:10 MCV 92.9 fL (83.0-100.0) 04/22/17 05:10 MCH 31.5 pg (28.0-33.3) 04/22/17 05:10 MCHC 33.9 g/dL (31.6-35.5) 04/22/17 05:10 RDW 12.0 % (11.5-14.5) 04/22/17 05:10 Plt Count 324 K/mcL (140-400) 04/22/17 05:10 MPV 10.1 fL (9.4-12.4) 04/22/17 05:10 Immature Gran % 0.3 % (0-4) 04/21/17 13:47 Seg Neutrophils % 59.0 % 04/21/17 13:47 Lymphocytes % 32.4 % 04/21/17 13:47 Monocytes % 6.8 % 04/21/17 13:47 Eosinophils % 0.6 % 04/21/17 13:47 Basophils % 0.9 % 04/21/17 13:47 Neutrophils # 5.8 K/mcL (1.6-8.9) 04/21/17 13:47 Lymphocytes # 3.2 K/mcL (0.6-4.6) 04/21/17 13:47 Monocytes # 0.7 K/mcL (0.0-1.3) 04/21/17 13:47 Eosinophils # 0.1 K/mcL (0.0-0.6) 04/21/17 13:47 Basophils # 0.1 K/mcL (0.0-0.2) 04/21/17 13:47 PT 12.4 Seconds (9.4-12.1) H 04/21/17 19:01 INR 1.1 04/21/17 19:01 Sodium 139 mEq/L (136-145) 04/22/17 05:10 Potassium 3.5 mEq/L (3.5-5.1) 04/22/17 05:10 Chloride 107 mEq/L (98-107) 04/22/17 05:10 Carbon Dioxide 25 mEq/L (23-29) 04/22/17 05:10 BUN 21 mg/dL (6-20) H 04/22/17 05:10 Creatinine 0.58 mg/dL (0.60-1.20) L 04/22/17 05:10 Est GFR ( Amer) > 60 (> 60) 04/22/17 05:10 Est GFR (Non-Af Amer) > 60 (> 60) 04/22/17 05:10 BUN/Creatinine Ratio 36 (6-26) H 04/22/17 05:10 Glucose 92 mg/dL (70-105) 04/22/17 05:10 Calculated Osmolality 291 (280-300) 04/22/17 05:10 Lactic Acid 0.6 mmol/L (0.5-2.2) 04/21/17 19:01 Calcium 9.2 mg/dL (8.6-10.3) 04/22/17 05:10 Magnesium 1.9 mg/dL (1.6-2.6) 04/22/17 05:10 Total Bilirubin 0.7 mg/dL (0.3-1.0) 04/22/17 05:10 Direct Bilirubin 0.1 mg/dL (0.0-0.2) 04/21/17 13:47 Indirect Bilirubin 0.4 mg/dL (0.0-1.2) 04/21/17 13:47 AST 10 Units/L (13-39) L 04/22/17 05:10 ALT 8 Units/L (7-52) 04/22/17 05:10 Alkaline Phosphatase 47 Units/L (34-104) 04/22/17 05:10 Ammonia 36 mcmol/L (16-53) 04/21/17 15:10 Serum Total Protein 6.7 g/dL (6.4-8.9) 04/22/17 05:10 Albumin 4.2 g/dL (3.5-5.7) 04/22/17 05:10 Globulin 2.5 g/dL (2.4-3.5) 04/22/17 05:10 Albumin/Globulin Ratio 1.7 (1.1-2.2) 04/22/17 05:10 Serum , Qual Negative (Negative) 04/21/17 13:47 Urine Color Yellow (Yellow) 04/21/17 17:30 Urine Clarity Cloudy (Clear) A 04/21/17 17:30 Urine pH 6.0 pH Units (5.0-8.0) 04/21/17 17:30 Ur Specific Julian 1.028 (1.010-1.025) H 04/21/17 17:30 Urine Protein Negative mg/dL (Neg-Trace) 04/21/17 17:30 Urine Glucose (UA) Normal mg/dL (Normal) 04/21/17 17:30 Urine Ketones 80 mg/dL (Negative) H 04/21/17 17:30 Urine Blood Negative (Negative) 04/21/17 17:30 Urine Nitrite Negative (Negative) 04/21/17 17:30 Urine Bilirubin Negative (Negative) 04/21/17 17:30 Urine Urobilinogen Normal mg/dL (Normal) 04/21/17 17:30 Ur Leukocyte Esterase Negative (Negative) 04/21/17 17:30 Urine Microscopic RBC 0-3 per hpf (0-3) 03/13/18 17:30 Urine Microscopic WBC 5-15 per hpf (0-3) H 04/21/17 17:30 Ur Squamous Epith Cells Many per lpf (None-Few) H 04/21/17 17:30 Urine Bacteria Many per hpf (None-Few) H 04/21/17 17:30 Hyaline Casts None Seen per lpf (None-Few) 04/21/17 17:30 Salicylates < 5.0 mg/dL (15.0-30.0) L 04/21/17 13:47 Urine Opiates Screen Negative ng/mL (Mteejs=313) 04/21/17 17:30 Acetaminophen < 1.0 mcg/mL (10-30) L 04/21/17 13:47 Ur Barbiturates Screen Negative ng/mL (Hrhnbs=330) 04/21/17 17:30 Ur Phencyclidine Scrn Negative ng/mL (Cutoff=25) 04/21/17 17:30 Ur Amphetamines Screen Negative ng/mL (Qpzogc=0067) 04/21/17 17:30 U Benzodiazepines Scrn Positive ng/mL (Wmvexj=905) H 04/21/17 17:30 Tribbey < 0.1 mEq/L (0.6-1.2) L 04/22/17 10:45 Urine Cocaine Screen Negative ng/mL (Cutoff= 300) 04/21/17 17:30 U Marijuana (THC) Screen Positive ng/mL (Cutoff = 50) H 04/21/17 17:30 Ethyl Alcohol < 10 mg/dL (0-10) 04/21/17 13:47 Consult Discharge Plan - Plan Referrals: NONE,PCP [Primary Care Provider] -
[2017-04-23] MEDS: *HR* Enoxaparin 40 MG/0.4 ML SYRINGE SQ SCH (06:22)
[2017-04-23] MEDS: Ondansetron 4 MG/2 ML VIAL IVP PRN (06:38)
[2017-04-23 08:17] LABS: Basophils # 0.1 K/mcL (0.0-0.2); Basophils % 0.7 %; Eosinophils % 0.2 %; Hematocrit 39.4 % (35.3-44.9); Hemoglobin 13.1 g/dL (11.5-15.4); Immature Granulocytes % 0.6 % (0-4); Lymphocytes # 2.1 K/mcL (0.6-4.6); Mean Corpuscular HGB Conc 33.2 g/dL (31.6-35.5); Mean Corpuscular Hemoglobin 31.5 pg (28.0-33.3); Mean Corpuscular Volume 94.7 fL (83.0-100.0); Monocytes # 0.5 K/mcL (0.0-1.3); Monocytes % 5.9 %; Neutrophils # 6.1 K/mcL (1.6-8.9); Platelet Count 304 K/mcL (140-400); Red Blood Count 4.16 M/mcL (3.82-4.97); Segmented Neutrophils % 68.6 %
[2017-04-23] MEDS: cefTRIAXone 1,000 MG in Water for inj. (sterile) 20 ML 10 ML IVP SCH (08:19)
[2017-04-23] MEDS: 0.9 % Sodium Chloride 1,000 ML IVC SCH ×2 (08:20→21:12)
[2017-04-23 08:23] LABS: BUN/Creatinine Ratio 46 (6-26); Blood Urea Nitrogen 24 mg/dL (6-20); Carbon Dioxide 17 mEq/L (23-29); Chloride 108 mEq/L (98-107); Glucose 68 mg/dL (70-105); Osmolality,Calculated 286 (280-300); Potassium 4.3 mEq/L (3.5-5.1); Sodium 137 mEq/L (136-145); eGFR For African Americans > 60 (> 60); eGFR For Non-African Americans > 60 (> 60)
--- NOTE | 2017-04-23 14:44 | Psychiatry Progress Note ---
Date of Encounter: 04/23/17 Time of Encounter: 13:30 Subjective Interval history: Patient was seen for follow-up on psychiatric consultation. She is more alert but continued to be confused and and unable to give coherent answers conversation. She denied any suicidal ideation and unable to explain why she is in the hospital. Discussed with the nursing staff that patient condition is improving however she would not benefit from hospitalization in psychiatry because she would not be able to participate in groups or activities. At this time I recommend continuing medical stabilization anxiety and patient can be discharged when medically stable and referred to outpatient mental health's services. For any questions regarding disposition or mental health referral please contact 1 A. Results - Vital Signs Vital Signs: Temp Pulse Resp BP Pulse Ox 99.1 F 72 16 116/76 99 04/23/17 11:41 04/23/17 11:41 04/23/17 11:41 04/23/17 12:39 04/23/17 11:41 - Labs Labs: Laboratory Results - last 24 hr 04/23/17 04/23/17 07:44 07:44 WBC 8.9 RBC 4.16 Hgb 13.1 Hct 39.4 MCV 94.7 MCH 31.5 MCHC 33.2 RDW 12.0 Plt Count 304 MPV 10.0 Immature Gran % 0.6 Seg Neutrophils % 68.6 Lymphocytes % 24.0 Monocytes % 5.9 Eosinophils % 0.2 Basophils % 0.7 Neutrophils # 6.1 Lymphocytes # 2.1 Monocytes # 0.5 Eosinophils # 0.0 Basophils # 0.1 Sodium 137 Potassium 4.3 Chloride 108 H Carbon Dioxide 17 L BUN 24 H Creatinine 0.52 L Est GFR ( Amer) > 60 Est GFR (Non-Af Amer) > 60 BUN/Creatinine Ratio 46 H Glucose 68 L Calculated Osmolality 286 Calcium 9.0 Assessment and Plan (1) Acute metabolic encephalopathy Current visit: No Status: Chronic Plan: Continue hospitalization, Close observation, Suicide Precautions per unit protocol, Encourage participation in unit milieu, Group Therapy, Monitor sleep, Monitor appetite (2) Altered mental status Current visit: Yes Status: Acute Plan: Continue hospitalization, Close observation, Suicide Precautions per unit protocol, Encourage participation in unit milieu, Group Therapy, Monitor sleep, Monitor appetite Additional Plan: Continue medical stabilization. Patient can be discharged home when she is medically stable with follow-up with mental health's outpatient provider. Qualifiers: Qualified Code(s): R41.82 - Altered mental status, unspecified Consult Discharge Plan - Plan Referrals: NONE,PCP [Primary Care Provider] - Psychiatry Exam - Constitutional Vitals: Temp Pulse Resp BP Pulse Ox 99.1 F 72 16 116/76 99 04/23/17 11:41 04/23/17 11:41 04/23/17 11:41 04/23/17 12:39 04/23/17 11:41 Additional observations: Patient is awake her level of consciousness fluctuates on and off she is unable to answer questions she is not agitated and appeared confused and "" spacey.
--- NOTE | 2017-04-23 14:57 | Internal Med Progress Note ---
Date of Encounter: 04/23/17 Time of Encounter: 10:00 - Assessment and plan (1) Acute metabolic encephalopathy Current Visit: No Status: Chronic Assessment and plan: Multifactoral -Patient was originally brought to the worst part after displaying erratic behavior as well as experiencing auditory or visual hallucination. She does have past polysubstance abuse history as well as psychiatric history. She has been noncompliant with psychiatric medication her tox screen was positive for both marijuana and benzodiazepines. She also has a urinary tract infection all of these factors could be contributing to her altered state. Today she is more alert however she seems to be displaying paranoid behavior. She does not want to eat or drink because she feels we are trying to poison her. She has been experiencing both auditory and visual hallucinations.-We will continue with IV fluids for now Hold any sedating medications Fall precautions as well as aspiration precautions Continue with antibiotics for urinary tract infection Psychiatry has been consulted Patient does have a sitter (2) Suicide ideation Current Visit: Yes Status: Acute Assessment and plan: Patient was originally brought to the emergency department due to hallucinations and suicidal ideations. She denies any suicidal or homicidal ideations Patient does have a sitter (3) Bipolar disorder Current Visit: Yes Status: Chronic Assessment and plan: Patient has a history of bipolar disorder she has been noncompliant with her medications she has been expecting to auditory and visual hallucinations. When she was on lithium at one point lithium level was less than 1. psychiatry has been consulted Qualifiers: Active/Remission status: currently active Current bipolar episode type: mixed Current episode severity: severe Psychotic features: with psychotic features Qualified Code(s): F31.64 - Bipolar disorder, current episode mixed, severe, with psychotic features (4) UTI (urinary tract infection) Current Visit: Yes Status: Acute Assessment and plan: We will continue with Rocephin pending culture sensitivity Qualifiers: Urinary tract infection type: acute cystitis Hematuria presence: without hematuria Qualified Code(s): N30.00 - Acute cystitis without hematuria (5) Polysubstance dependence including opioid type drug, continuous use Current Visit: Yes Status: Chronic Assessment and plan: Patient has a past history of polysubstance abuse both heroin and methamphetamines. She tested positive for marijuana as well as benzodiazepines. Continuous cardiac monitoring Aspirations and fall precautions (6) Weakness Current Visit: Yes Status: Acute Assessment and plan: 1 patient has not been or drank for several days due to paranoia-she also has irretractable infection-she has some difficulty ambulating we will consult PT Place on fall precautions Patient does have a sitter - Time Spent With Patient less than 15 minutes - Subjective Interval history: Patient is awake and sitting up in bed. She is staring straight ahead when asked questions patient does not respond. Nursing staff reports that she is not being cooperative with assessment. Apparently speech therapy attempted to do swallow evaluation and patient's spat food and liquid at therapist. Nursing staff reports that patient has been hallucinating, seeing individuals that are not there as well as talking to individuals that are not there. She did not want take her medications because she believed she was being poisoned. Nursing staff reports that patient has difficulty ambulating-she is weak and unable to stand. She is hemodynamically stable afebrile. - Constitutional Vitals: Temp Pulse Resp BP Pulse Ox 99.1 F 72 16 116/76 99 04/23/17 11:41 04/23/17 11:41 04/23/17 11:41 04/23/17 12:39 04/23/17 11:41 Exam: Patient just stares off does not interact during assessment - Head Head exam: Present: atraumatic, normocephalic - Eye Eye exam: Present: PERRL, conjuntiva pink, sclera anicteric Pupils: Present: PERRL - Neck Neck exam general surgery: Present: supple, trachea midline. Absent: lymphadenopathy - Respiratory Respiratory exam: Present: CTAB. Absent: accessory muscle use, rales, rhonchi, wheezes - Cardiovascular Cardiovascular exam: Present: RRR, +S1, +S2. Absent: diastolic murmur, gallop, rubs, systolic murmur - GI/Abdominal GI/Abdominal exam: Present: normal bowel sounds, soft, no peritoneal signs. Absent: distended, tenderness - Extremities Exam Extremities exam: Present: warm, radial pulses palpable and symmetrical. Absent : calf tenderness, cyanotic, pedal edema - Neurological Exam Neurological exam: Absent: pronater drift, facial droop, speech deficit Additional comments: Patient is not cooperative - Skin Skin exam: Present: dry, intact Internal Medicine: Result - Labs CBC & Chem 7: 04/23/17 07:44 04/23/17 07:44 Labs: Short CBC 04/23/17 Range/Units 07:44 WBC 8.9 (4.3-11.1) K/mcL Hgb 13.1 (11.5-15.4) g/dL Hct 39.4 (35.3-44.9) % Plt Count 304 (140-400) K/mcL Neutrophils # 6.1 (1.6-8.9) K/mcL BMP 04/23/17 07:44 Sodium 137 Potassium 4.3 Chloride 108 H Carbon Dioxide 17 L BUN 24 H Creatinine 0.52 L Glucose 68 L Calcium 9.0 - ABG Interpretation ABG results: PT/INR, D-dimer PT 12.4 Seconds (9.4-12.1) H 04/21/17 19:01 Consult Discharge Plan - Plan Referrals: NONE,PCP [Primary Care Provider] -
[2017-04-23] MEDS: Nicotine 21 MG PATCH.TD24 TD SCH (21:10)
[2017-04-23] MEDS: Gabapentin 300 MG CAPSULE PO SCH (21:11)
[2017-04-24 05:18] LABS: Basophils # 0.1 K/mcL (0.0-0.2); Eosinophils # 0.1 K/mcL (0.0-0.6); Eosinophils % 0.7 %; Hematocrit 37.2 % (35.3-44.9); Immature Granulocytes % 0.3 % (0-4); Lymphocytes # 2.7 K/mcL (0.6-4.6); Lymphocytes % 31.2 %; Mean Corpuscular HGB Conc 34.9 g/dL (31.6-35.5); Mean Corpuscular Hemoglobin 32.6 pg (28.0-33.3); Mean Corpuscular Volume 93.2 fL (83.0-100.0); Mean Platelet Volume 10.9 fL (9.4-12.4); Monocytes # 0.7 K/mcL (0.0-1.3); Monocytes % 8.4 %; Platelet Count 245 K/mcL (140-400); Red Blood Count 3.99 M/mcL (3.82-4.97); Red Cell Distribution Width 12.1 % (11.5-14.5); Segmented Neutrophils % 58.4 %
[2017-04-24 05:24] LABS: BUN/Creatinine Ratio 28 (6-26); Blood Urea Nitrogen 14 mg/dL (6-20); Carbon Dioxide 20 mEq/L (23-29); Chloride 110 mEq/L (98-107); Glucose 98 mg/dL (70-105); Osmolality,Calculated 286 (280-300); Potassium 3.8 mEq/L (3.5-5.1); Sodium 138 mEq/L (136-145); eGFR For African Americans > 60 (> 60); eGFR For Non-African Americans > 60 (> 60)
[2017-04-24] MEDS: *HR* Enoxaparin 40 MG/0.4 ML SYRINGE SQ SCH (06:34)
[2017-04-24 06:39] VITALS: BP 125/86
[2017-04-24] MEDS: 0.9 % Sodium Chloride 1,000 ML IVC SCH (08:06)
[2017-04-24] MEDS: cefTRIAXone 1,000 MG in Water for inj. (sterile) 20 ML 10 ML IVP SCH (08:06)
[2017-04-24] MEDS: Nicotine 21 MG PATCH.TD24 TD SCH (08:07)
[2017-04-24] MEDS: Gabapentin 300 MG CAPSULE PO SCH ×2 (08:08→16:50)
--- NOTE | 2017-04-24 10:03 | Internal Med Progress Note ---
Date of Encounter: 04/24/17 Time of Encounter: 09:53 - Assessment and plan (1) Acute metabolic encephalopathy Current Visit: No Status: Chronic Assessment and plan: Patient was originally brought to the emergency department after displaying erratic behavior at home experiencing auditory and visual hallucinations, at one point she thought that she was despite the fact she had negative test. Over the past couple of days she has been very lethargic despondent at times. Today patient is alert and interacting with staff today. She has been eating drinking without difficulty ambulating in the hallways with nursing staff.-This may be multifactorial since patient does have a psychiatric history and has not been compliant with medications as well as patient does have a history of polysubstance abuse tox screen was positive for marijuana and benzodiazepines. She also has a urinary tract infection and has been receiving antibiotics in the past few days. We will hold any sedating medications Patient will be on fall precautions We will continue with antibiotics for urinary tract infection Patient does have a sitter Psychiatry consult (2) Suicide ideation Current Visit: Yes Status: Acute Assessment and plan: Patient is emotionally distraught and crying verbalized that she would kill herself when she is released. She has no plan at this time patient is on suicide observation and a sitter is in the room she has agree to go to for evaluation Consults psychiatry (3) Bipolar disorder Current Visit: Yes Status: Chronic Assessment and plan: Assessment and plan: Patient has a history of bipolar disorder she has been noncompliant with her medications she has been expecting to auditory and visual hallucinations. When she was on lithium at one point lithium level was less than 1. psychiatry has been consulted We will administer Geodon as needed for agitation patient is allergic to Haldol Qualifiers: Active/Remission status: currently active Current bipolar episode type: mixed Current episode severity: severe Psychotic features: with psychotic features Qualified Code(s): F31.64 - Bipolar disorder, current episode mixed, severe, with psychotic features (4) UTI (urinary tract infection) Current Visit: Yes Status: Acute Assessment and plan: Urinalysis is indicative of a UTI patient initially started on Rocephin urine culture shows Staphylococcus epidermidis we will stop Rocephin Qualifiers: Urinary tract infection type: acute cystitis Hematuria presence: without hematuria Qualified Code(s): N30.00 - Acute cystitis without hematuria (5) Polysubstance dependence including opioid type drug, continuous use Current Visit: Yes Status: Chronic Assessment and plan: 1 Patient has a past history of polysubstance abuse both heroin and methamphetamines. She tested positive for marijuana as well as benzodiazepines. Continuous cardiac monitoring Aspirations and fall precautions (6) Weakness Current Visit: Yes Status: Acute Assessment and plan: 1 this has improved patient has been in the lady in the hallways without difficulty PT will evaluate the patient Fall precautions Patient does have a sitter - Subjective Interval history: Overnight the patient was doing well she had been ambulating in the hallways with nursing staff eating and drinking tolerating meals. I had anticipated on discharging patient today. Psychiatry had seen patient yesterday and had recommended outpatient mental health services. However this morning patient is very emotional and crying. She expressed to nursing staff that once she is discharged that she is going to kill herself. I did speak with the patient who crying throughout the conversation when questioned whether or not she wanted to harm herself she said yes. I asked if she had a plan she said "No I am just so confused I do not know what to do" family arrives at bedside. Mother states that patient has attempted to harm herself in the past, that she has not been compliant with her medications in the past in that she has used illicit drugs. Family expresses concerned about patient's behavior today, fearful that patient may harm herself. Psychiatry has been reconsulted. Patient displays behavior that represents risk of physical harm, Dr Lovelace speaks with patient who agrees to go to 1A for further evaluation - Constitutional Vitals: Temp Pulse Resp BP Pulse Ox 98.7 F 65 16 125/86 100 04/24/17 06:31 04/24/17 06:31 04/24/17 06:31 04/24/17 06:31 04/24/17 06:31 General appearance: Present: A&O X 2 Exam: Patient has emotionally distraught this morning - Head Head exam: Present: atraumatic, normocephalic - Eye Eye exam: Present: PERRL, conjuntiva pink, sclera anicteric Pupils: Present: PERRL - Neck Neck exam general surgery: Present: supple, trachea midline. Absent: lymphadenopathy - Respiratory Respiratory exam: Present: CTAB. Absent: accessory muscle use, rales, rhonchi, wheezes - Cardiovascular Cardiovascular exam: Present: RRR, +S1, +S2. Absent: diastolic murmur, gallop, rubs, systolic murmur - GI/Abdominal GI/Abdominal exam: Present: normal bowel sounds, soft, no peritoneal signs. Absent: distended, tenderness - Extremities Exam Extremities exam: Present: warm, radial pulses palpable and symmetrical. Absent : calf tenderness, cyanotic, pedal edema - Neurological Exam Neurological exam: Present: CN II-XII intact, oriented X3, no focal deficits. Absent: pronater drift, facial droop, speech deficit - Psychiatric Psychiatric exam: Present: depressed, suicidal ideation - Skin Skin exam: Present: dry, intact Internal Medicine: Result - Labs CBC & Chem 7: 04/24/17 03:36 04/24/17 03:36 Labs: Short CBC 04/24/17 Range/Units 03:36 WBC 8.6 (4.3-11.1) K/mcL Hgb 13.0 (11.5-15.4) g/dL Hct 37.2 (35.3-44.9) % Plt Count 245 (140-400) K/mcL Neutrophils # 5.0 (1.6-8.9) K/mcL BMP 04/24/17 03:36 Sodium 138 Potassium 3.8 Chloride 110 H Carbon Dioxide 20 L BUN 14 Creatinine 0.50 L Glucose 98 Calcium 9.0 - ABG Interpretation ABG results: PT/INR, D-dimer PT 12.4 Seconds (9.4-12.1) H 04/21/17 19:01 Consult Discharge Plan - Plan Referrals: NONE,PCP [Primary Care Provider] -
--- NOTE | 2017-04-24 14:39 | Discharge Summary ---
Orders not resulted at time of discharge: Pending orders 04/24/17 12:13 EKG [ECG 12 lead ECG] [ECG] Stat Date of Encounter: 04/24/17 Time of Encounter: 14:31 - Discharge Diagnosis (1) Acute metabolic encephalopathy Priority: Secondary Status: Chronic Comments: Patient was originally brought to the emergency department after displaying erratic behavior at home experiencing auditory and visual hallucinations, at one point she thought that she was despite the fact she had negative test. Over the past couple of days she has been very lethargic despondent at times. Today patient is alert and interacting with staff today. She has been eating drinking without difficulty ambulating in the hallways with nursing staff.-This may be multifactorial since patient does have a psychiatric history and has not been compliant with medications as well as patient does have a history of polysubstance abuse tox screen was positive for marijuana and benzodiazepines. (2) Suicide ideation Priority: Primary Status: Acute Comments: Patient is emotionally distraught and crying verbalized that she would kill herself when she is released. She has no plan at this time Psychiatry has been consulted and they will admit patient to 1A however they requested patient be penises prior to transfer (3) Bipolar disorder Priority: Primary Status: Chronic Comments: Patient has a history of bipolar disorder she has been noncompliant with her medications she has been expecting to auditory and visual hallucinations. She is to be transferred to psychiatry request patient be pink slip prior to transfer Qualifiers: Active/Remission status: currently active Current bipolar episode type: mixed Current episode severity: severe Psychotic features: with psychotic features Qualified Code(s): F31.64 - Bipolar disorder, current episode mixed, severe, with psychotic features (4) UTI (urinary tract infection) Priority: Secondary Status: Resolved Comments: Urine culture reveals Staphylococcus epidermidis-she has received 3 days of Rocephin we will stop antibiotic treatment this time Qualifiers: Urinary tract infection type: acute cystitis Hematuria presence: without hematuria Qualified Code(s): N30.00 - Acute cystitis without hematuria (5) Polysubstance dependence including opioid type drug, continuous use Priority: Secondary Status: Chronic Comments: 1 Patient has a past history of polysubstance abuse both heroin and methamphetamines. She tested positive for marijuana as well as benzodiazepines. -She is to be seen by psychiatry (6) Weakness Priority: Secondary Status: Acute Comments: This has resolved patient has been walking in her room without difficulty Hospital course: Ms. Lorenzana is a 31 year old female past medical history of heroin and methamphetamine induce bipolar he initally was brought into [facility] ER per EMS due to increased somnolence over several days She had several falls over the past few days witnessed by her boyfriend. All reports taking Xanax at home she has a history of bipolar with psychoses and was was treated with lithium/ olanzapine/oxcarbazine, which she is no longer taking. The boyfriend reports erratic behavior-she thought that she was and was seen by outlying facility and was deemed not however she continued to believe she was having contractions was complaining of abdominal pain for days. The patient also admits to hearing voices as well as visual hallucinations. Workup here demonstrated negative CT of head lab work with tox screen positive for benzodiazepines as well as marijuana. She was treated for UTI and given IV fluids. Upon initial assessment patient was lethargic and difficult to arouse. After 24 hours she was more awake however she would not cooperate with staff. She would not eat or drink because she felt she was being poisoned eventually she became more cooperative. Today patient has been very emotionally labile and crying hysterically during assessment she continues to experience visual and auditory hallucinations. She has verbalized several times that she would like to kill herself at one point she attempted to pull her IV out-because she wanted to jump out the window. She has been evaluated by psychiatry- and myself have spoken to the patient and she is willing to be admitted to voluntarily however psychiatry requested patient be pink slip prior to transfer. Presently the patient is hemodynamically stable she is ambulating in the room without difficulty, tolerating oral intake. She is medically stable at this time she will be pink slipped transferred to for further psychiatric treatment - Time Spent with Patient Total time spent providing and/or coordinating discharge services: - Discharge Medications Home Medications: HydrOXYzine Pamoate [Vistaril] 50 mg PO Q6H PRN #60 capsule 05/13/16 [Rx] Albuterol Sulfate [Ventolin Hfa] 2 puff IH Q4-6H PRN 04/21/17 [History] Gabapentin [Neurontin] 600 mg PO TID 04/21/17 [History] Allergies/Adverse Reactions: 3 Allergy/AdvReac Type Severity Reaction Status Date / Time Amoxicillin [From Amoxil] Allergy Rash Verified 04/21/17 13:33 haloperidol [From Haldol] Allergy Rash Verified 04/21/17 13:33 Penicillins [PCN] Allergy Rash Verified 04/21/17 13:33 Prazosin Allergy Rash Verified 04/21/17 13:33 Date of admission: 04/21/17 23:28 Primary care physician: PCP NONE Consults: 04/21/17 23:48 Consult to Hydro Pneumatic Tester [CONS] Routine Reason for SW Consult: discharge planning 04/21/17 23:49 Consult to Psychiatry [CONS] Routine Consulting Provider: Psychiatry Zeny Reason for Consult: suicidal iseation Time Notified: 23:49 Call Completed: No 04/23/17 14:58 Consult to Physical Therapy [CONS] Routine Comment: Evaluate, develop and implement POC Reason for Consult: weakness Does patient have active BEDREST order?: No Is patient medically & hemodynamically stable?: Yes Patient assessed for mobility or mobilized this visit?: No Discharging clinician: Angi Lucas Anticipated date of discharge: 04/24/17 - Constitutional Vitals: Temp Pulse Resp BP Pulse Ox 98.7 F 65 16 125/86 100 04/24/17 06:31 04/24/17 06:31 04/24/17 06:31 04/24/17 06:31 04/24/17 06:31 General appearance: Present: A&O X 2 - Head Head exam: Present: atraumatic, normocephalic - Eye Eye exam: Present: PERRL, conjuntiva pink, sclera anicteric Pupils: Present: PERRL - Patient Status Disposition: Transfer Psychiatric Hosp Condition: Good Functional capacity at discharge: independent ambulation Overall status at discharge: patient is not back to baseline - Discharge Instructions Instructions: Bipolar Disorder (DC) Follow Up With: NONE,PCP [Primary Care Provider] - - Diet and Activity Activity: increase activity as tolerated Diet: advance to your usual diet
[2017-04-24] MEDS ORDERED: *HR* LORazepam 0.5 MG TABLET PO ONE (16:10)
--- NOTE | 2017-04-28 22:44 | Electrocardiograph Report ---
[address] [address] Test Date: 2017-04-24 Pat Name: Felisha Lorenzana Department: 113 Room: 3B22 Gender: F [employer]: : 1985 Requested By: Angi Lucas Order Number: [id number] Reading MD: Kg Guillen DO Measurements Intervals [place] Rate: 67 P: 65 MA: 163 QRS: 51 QRSD: 98 T: 44 QT: 412 QTc: 427 Interpretive Statements SINUS RHYTHM Electronically Signed On 04-28-2017 22:42:54 EDT by Kg Guillen DO
== END 2017-04-24 19:46 | DRG 753 ==
LOC: 3BNU 13:26 → EMEROO 13:26 → 3BNU 21:05
PROVIDERS: ADMIT Student in an Organized Health Care Education/Training Program; ATTEND Registered Nurse

== ENCOUNTER 2017-04-24 19:24 | Inpatient (IN) ==
[2017-04-24] MEDS ORDERED: MOM Conc 10 ML UD.LIQ PO PRN (19:56)
[2017-04-24] MEDS ORDERED: *HR* LORazepam 1 MG TABLET PO PRN (19:56)
[2017-04-24] MEDS ORDERED: *HR* LORazepam 2 MG/ML VIAL IM PRN (19:56)
[2017-04-24] MEDS ORDERED: Mag Hydrox/Al Hydrox/Simeth 30 ML UDC PO PRN (19:56)
[2017-04-24] MEDS ORDERED: hydrOXYzine pamoate 25 MG CAPSULE PO PRN (20:00)
[2017-04-24] MEDS ORDERED: Ziprasidone injection 20 MG/ML VIAL IM PRN (20:01)
[2017-04-24] MEDS ORDERED: Ziprasidone 20 MG CAPSULE PO PRN (20:01)
[2017-04-24] MEDS: traZODone 50 MG TABLET PO PRN (21:52)
[2017-04-24] MEDS: Gabapentin 300 MG CAPSULE PO SCH (21:52)
[2017-04-25] MEDS: Nicotine 21 MG PATCH.TD24 TD SCH (09:44)
[2017-04-25] MEDS: Gabapentin 300 MG CAPSULE PO SCH ×3 (09:44→20:40)
--- NOTE | 2017-04-25 10:30 | Psychiatry History & Physical ---
Date of Encounter: 04/25/17 Time of Encounter: 10:24 History of Present Illness Patient Stated Chief Complaint: Overdose, suicide attempts Medicare Admission Attestation: For traditional Medicare patients the provided hospital inpatient services are reasonable and necessary and in the case of services not specified as inpatient -only under 42 CFR 419.22 (n), that they are appropriately provided as inpatient services in accordance 42 CFR 412.3. For Critical Access Hospital the patient may reasonably be expected to be discharged or transferred to a hospital within 96 hours after admission to the Critical Access Hospital. Admitted From: Intrahospital Transfer (3 b) History of Present Illness: Ms. Lorenzana is a 31 year old female admitted from the medical floor for evaluation treatment of bipolar disorder with psychotic features status post overdose on multiple medication suicide attempts. Patient was initially admitted to medical service for stabilization and she was unresponsive and lethargic for the first 2 or 3 days. She was seen in consultation and follow- up consultation by psychiatry and she was confused and lethargic. Later on patient became more alert but she was agitated and delusional and making suicidal comments. UDS on admission was positive for THC and benzodiazepine. Patient believed that she overdosed on heroine she had a history of substance abuse and dependence. Patient was hospitalized in this unit last year in May 2016 and discharged on medication including gabapentin lithium and olanzapine and Trileptal. Patient stated that she did not follow up after discharge and did not take her medication. Past Med Surg Social Fam HX - Past Medical History Medical history: asthma, coronary artery disease, hypertension - Past Psychiatric History Psychiatric history: Reports: bipolar, previous psychiatric hospitalization Family psychiatric history: Unknown Family History of Suicide: Unknown - Past Surgical History Surgical History: appendectomy, cholecystectomy - Social History Smoking Status: Current every day smoker Smokeless Tobacco Status: No Alcohol use: none Drug use: opiates, marijuana, methamphetamine, IV Drug Use, prescription drug abuse, other Medications & Allergies HydrOXYzine Pamoate [Vistaril] 50 mg PO Q6H PRN #60 capsule 05/13/16 [Rx] Albuterol Sulfate [Ventolin Hfa] 2 puff IH Q4-6H PRN 04/21/17 [History] Gabapentin [Neurontin] 600 mg PO TID 04/21/17 [History] 3 Allergy/AdvReac Type Severity Reaction Status Date / Time Amoxicillin [From Amoxil] Allergy Rash Verified 04/21/17 13:33 haloperidol [From Haldol] Allergy Rash Verified 04/21/17 13:33 Penicillins [PCN] Allergy Rash Verified 04/21/17 13:33 Prazosin Allergy Rash Verified 04/21/17 13:33 Review of Systems Psychiatric: Reports: suicidal ideation, auditory hallucinations, confusion, irritability, mood swings Exam - HEENT Head exam IM: Present: atraumatic Eye exam IM: Present: EOMI, normal appearance, PERRL ENT exam IM: Present: normal exam - Neurological Neurological exam: Present: CN II-XII intact - Respiratory Respiratory exam IM: Present: CTAB - GI/Abdominal GI/Abdominal exam IM: Present: normal bowel sounds, soft. Absent: tenderness - Extremities Extremities exam IM: Present: full ROM - Skin Skin exam IM: Present: dry, warm - Constitutional Vitals: Temp Pulse Resp BP 98.2 F 90 16 139/98 04/25/17 08:17 04/25/17 08:17 04/25/17 08:17 04/25/17 08:17 General appearance: age & developmentally appropriate, well-groomed, well- nourished - Musculoskeletal Gait: normal Station: relaxed Strength & Tone: normal for patient - Psychiatric Patient Orientation: Yes Person, Yes Time, Yes Place Level of alertness: Alert Behavior: calm, cooperative, withdrawn Psychomotor activity: Normal Eye Contact: Maintains Eye Contact Mood Description: Euthymic/stable Affect description: congruent with mood, blunted Speech Volume: Normal Speech pattern: normal rate, normal rhythm, normal tone, fluent, spontaneous Language & Vocabulary: consistent with education Thought Process: Linear, Goal Oriented Thought Content: Yes Suicidal ideation, No Homicidal ideation, No Overt delusions Perceptual Disturbances: No Auditory hallucinations, No Visual hallucinations Attention Span Ability: Capable of Focused Attention Memory Description: Grossly Intact Patient Reliability: Reliable Historian Fund of knowledge: Yes abstraction ability, Yes average, Yes aware of current events Intelligence Estimate: Average Judgment: Limited Insight: Partial Assessment and Plan (1) Bipolar disorder Current visit: No Status: Chronic Plan: Admit inpatient for safety and stabilization, Close observation, Suicide Precautions per unit protocol, Encourage participation in unit milieu, Group Therapy, Monitor sleep, Monitor appetite Additional Plan: Olanzapine 5 mg daily. Risks, benefits, side effects, alternatives discussed w/pt: Yes Patient agreeable to treatment: Yes Estimated Length of Stay (Days): 5 Qualifiers: Active/Remission status: currently active Current bipolar episode type: mixed Current episode severity: severe Psychotic features: with psychotic features Qualified Code(s): F31.64 - Bipolar disorder, current episode mixed, severe, with psychotic features (2) Polysubstance dependence including opioid type drug, continuous use Current visit: No Status: Chronic Plan: Admit inpatient for safety and stabilization, Close observation, Suicide Precautions per unit protocol, Encourage participation in unit milieu, Group Therapy, Monitor sleep, Monitor appetite Risks, benefits, side effects, alternatives discussed w/pt: Yes Patient agreeable to treatment: Yes (3) Suicidal ideation Current visit: No Status: Acute Plan: Admit inpatient for safety and stabilization, Close observation, Suicide Precautions per unit protocol, Encourage participation in unit milieu, Group Therapy, Monitor sleep, Monitor appetite Risks, benefits, side effects, alternatives discussed w/pt: Yes Patient agreeable to treatment: Yes
[2017-04-25] MEDS: Ibuprofen 400 MG TABLET PO PRN (17:08)
[2017-04-25] MEDS ORDERED: OLANZapine 5 MG TAB.RAPDIS PO SCH (18:00)
[2017-04-25] MEDS: traZODone 50 MG TABLET PO PRN (20:40)
[2017-04-26] MEDS: Ibuprofen 400 MG TABLET PO PRN (06:53)
[2017-04-26] MEDS: Gabapentin 300 MG CAPSULE PO SCH (08:59)
[2017-04-26] MEDS: Nicotine 21 MG PATCH.TD24 TD SCH (08:59)
[2017-04-26 09:43] VITALS: BP 131/95
--- NOTE | 2017-04-26 12:33 | Discharge Summary ---
Date of Encounter: 04/26/17 Time of Encounter: 11:00 Diagnosis - Discharge Diagnosis (1) Bipolar disorder Status: Chronic Qualifiers: Active/Remission status: currently active Current bipolar episode type: mixed Current episode severity: severe Psychotic features: with psychotic features Qualified Code(s): F31.64 - Bipolar disorder, current episode mixed, severe, with psychotic features (2) Polysubstance dependence including opioid type drug, continuous use Status: Chronic (3) Suicidal ideation Status: Acute Medications - Discharge Medications HydrOXYzine Pamoate [Vistaril] 50 mg PO Q6H PRN #60 capsule 05/13/16 [Rx] Albuterol Sulfate [Ventolin Hfa] 2 puff IH Q4-6H PRN 04/21/17 [History] Gabapentin [Neurontin] 600 mg PO TID 04/21/17 [History] 3 Allergy/AdvReac Type Severity Reaction Status Date / Time Amoxicillin [From Amoxil] Allergy Rash Verified 04/21/17 13:33 haloperidol [From Haldol] Allergy Rash Verified 04/21/17 13:33 Penicillins [PCN] Allergy Rash Verified 04/21/17 13:33 Prazosin Allergy Rash Verified 04/21/17 13:33 Provider Date of admission: 04/24/17 19:24 Discharging clinician: Theodore Fortune Psychiatry Exam - Constitutional Vitals: Temp Pulse Resp BP 97.4 F L 72 16 131/95 04/26/17 09:00 04/26/17 09:00 04/26/17 09:00 04/26/17 09:00 General appearance: age & developmentally appropriate, well-groomed, well- nourished - Musculoskeletal Gait: normal Station: relaxed Strength & Tone: normal for patient - Psychiatric Patient Orientation: Yes Person, Yes Time, Yes Place Level of alertness: Alert Behavior: calm, cooperative Psychomotor activity: Normal Eye Contact: Maintains Eye Contact Mood Description: Euthymic/stable Affect description: congruent with mood, full range Speech Volume: Normal Speech pattern: normal rate, normal rhythm, normal tone, fluent, spontaneous Language & Vocabulary: consistent with education Thought Process: Linear, Goal Oriented Thought Content: No Suicidal ideation, No Homicidal ideation, No Overt delusions Perceptual Disturbances: No Auditory hallucinations, No Visual hallucinations Attention Span Ability: Capable of Focused Attention Memory Description: Grossly Intact Patient Reliability: Reliable Historian Fund of knowledge: Yes abstraction ability, Yes aware of current events Intelligence Estimate: Average Judgment: Limited Insight: Partial Hospital Course Hospital course: Ms. Lorenzana is a 31 year old female admitted from the medical floor after an overdose multiple medication for stabilization off bipolar disorder with psychosis and polysubstance abuse. For details of admission please see H&P On the unit patient was started on gabapentin and olanzapine she was more alert and cooperative she was compliant with medication she denied any suicidal ideation or hallucinations, she reported improved sleep and her discharge plans were completed on the medical floor with referral to outpatient integrated services. On discharge patient was medically stable, not suicidal or psychotic , compliant with medication. Educated about substance abuse and compliance with treatment. She is discharged in stable condition. - Time Spent with Patient Total time spent providing and/or coordinating discharge services: Less than 30 minutes Assessment and Plan - Patient/Caregiver Discharge Instructions Activity: resume usual activities as tolerated Diet: regular diet - Follow up Plan Follow up with: [facility] Gu[facility] [Outside] - 06/16/17 9:00 am (The above appointment is with Dione Rendon.) Functional capacity at discharge: independent ambulation Overall status at discharge: Stable Disposition: Home, Self-Care Quality - Multiple Antipsychotics Patient discharged on 2 or more antipsychotic medications: No Procedures - Procedures Procedures: Medication Management, Crisis Stabilization, Supportive Therapy, Group Therapy, Psychoeducational Therapy
== END 2017-04-26 13:20 | disposition home or self-care (01) | DRG 753 ==
LOC: 1ANU 19:24
PROVIDERS: ADMIT Psychiatry & Neurology Psychiatry; ATTEND Psychiatry & Neurology Psychiatry

== ENCOUNTER 2018-07-22 16:05 | Inpatient (IN) ==
[2018-07-22 17:20] LABS: Bilirubin,Urine Negative (Negative); Blood,Urine Moderate (Negative); Clarity,Urine Clear (Clear); Color,Urine Yellow (Yellow); Glucose,Urine (UA) Normal (Normal); Ketones,Urine Negative (Negative); Leukocyte Esterase,Urine Negative (Negative); Nitrite,Urine Negative (Negative); PH,Urine 6.5 pH Units (5.0-8.0); Protein,Urine Negative (Neg-Trace); Urobilinogen,Urine Normal (Normal)
[2018-07-22 17:22] LABS: Bacteria,Urine None Seen per hpf (None-Few); Hyaline Casts,Urine None Seen per lpf (None-Few); Squamous Epithelial Cell,Urine Many per lpf (None-Few); WBC,Urine 0-3 per hpf (0-3)
[2018-07-22 17:27] LABS: Basophils # 0.1 K/mcL (0.0-0.2); Basophils % 0.8 %; Eosinophils # 0.1 K/mcL (0.0-0.6); Eosinophils % 0.7 %; Hemoglobin 14.1 g/dL (11.5-15.4); Immature Granulocytes % 0.4 % (0-4); Lymphocytes # 2.6 K/mcL (0.6-4.6); Lymphocytes % 24.4 %; Mean Corpuscular HGB Conc 34.4 g/dL (31.6-35.5); Mean Corpuscular Hemoglobin 31.8 pg (28.0-33.3); Mean Corpuscular Volume 92.3 fL (83.0-100.0); Monocytes # 0.7 K/mcL (0.0-1.3); Monocytes % 6.6 %; Neutrophils # 7.2 K/mcL (1.6-8.9); Platelet Count 345 K/mcL (140-400); Red Blood Count 4.44 M/mcL (3.82-4.97); Red Cell Distribution Width 12.3 % (11.5-14.5); Segmented Neutrophils % 67.1 %; White Blood Count 10.7 K/mcL (4.3-11.1)
[2018-07-22 17:29] LABS: Amphetamine Screen,Urine Negative ng/mL (Cutoff=1000); Barbiturate Screen,Urine Negative ng/mL (Cutoff=200); Benzodiazepines Screen,Urine Positive ng/mL (Cutoff=200); Cannabinoid Screen,Urine Positive ng/mL (Cutoff = 50); Cocaine Screen,Urine Negative ng/mL (Cutoff= 300); Opiate Screen,Urine Negative ng/mL (Cutoff=300); Phencyclidine Screen,Urine Negative ng/mL (Cutoff=25)
[2018-07-22 17:44] LABS: Acetaminophen < 10 mcg/mL (10-20); BUN/Creatinine Ratio 21 (6-26); Blood Urea Nitrogen 11 mg/dL (6-20); Calcium 9.7 mg/dL (8.6-10.3); Carbon Dioxide 29 mEq/L (23-29); Chloride 103 mEq/L (98-107); Ethanol < 10 mg/dL (Less than 10); Glucose 129 mg/dL (70-105); Osmolality,Calculated 287 (280-300); Potassium 3.1 mEq/L (3.5-5.1); Salicylate < 2.5 mg/dL (15.0-30.0); Sodium 138 mEq/L (136-145); eGFR For African Americans > 60 (> 60); eGFR For Non-African Americans > 60 (> 60)
--- NOTE | 2018-07-22 20:39 | Emergency Department Note ---
Disposition Clinical Impression: Schizophrenia Disposition: Admitted As Inpatient Condition: Good Referrals: NONE,PCP [Primary Care Provider] - Forms: ED Satisfaction Letter Time of Disposition: 20:45 General Adult HPI - General Chief complaint: ED Altered Mental Status Stated complaint: Psych Eval Time Seen by Provider: 07/22/18 16:50 Source: patient Limitations: no limitations - History of Present Illness HPI Narrative: Patient 33 of female with prior history of schizophrenia presents to the emergency department requesting mental health evaluation. Patient states that she has been noncompliant with her psychiatric medications and is having difficulty taking care of herself. The patient states that she will need to take her medications and denies that she is actively suicidal or homicidal. The patient feels like she probably needs to be admitted to a psychiatric facility whenever she gets like this. The patient states it is worsened by not taking her medications and improved with rest and taking her psychiatric medications. Pain Scale: 0 - Related Data Allergies Allergy/AdvReac Type Severity Reaction Status Date / Time Amoxicillin [From Amoxil] Allergy Rash Verified 07/22/18 16:15 haloperidol [From Haldol] Allergy Rash Verified 07/22/18 16:15 ketorolac [From Toradol] Allergy Rash Verified 07/22/18 16:15 Penicillins [PCN] Allergy Rash Verified 07/22/18 16:15 Prazosin Allergy Rash Verified 07/22/18 16:15 All systems ED: reviewed and negative except as stated. Past Medical History - Past Medical History Attestation: Yes The following information was validated with the patient. Medical history: Reports: cardiomyopathy, hepatitis Surgical history: Reports: appendectomy, cholecystectomy Psychiatric history: Reports: anxiety, bipolar, depression, PTSD, schizophrenia, previous psychiatric hospitalization [employer] history: Reports: endometriosis, other - Social History Smoking Status: Current every day smoker Smokeless Tobacco Status: No Alcohol use: Reports: none Drug use: Reports: marijuana, prescription drug abuse, other Physical Exam General: Conversant and pleasant interactive and nontoxic. Head: Normocephalic/atraumatic Eyes:PERRLA, EOMI, no conjunctivitis Nares: Without d/c. Ears: No erythema or d/c noted. Oralpharnyx: P&MMM noted, Neck: Supple, no JVD or STATE PILOT noted. Cardovascular: regular rate and rhythm without murmur, brisk capillary refill, no peripheral edema. Lungs: Clear to ascultation bilaterally, non-labored Abd: Soft nontender, Non Distended, no guarding, no rebound. : Defered Extremities: moves all extremities equally Neuro: AOx3, no obvious gross neuro deficit Psych: Normal Affect Derm: No rash noted - General Limitations: no limitations General appearance: alert, in no apparent distress Course Course Narrative: Patient has been evaluated by [facility] and the patient is accepted [facility] service Vital Signs Temperature 98.7 F 07/22/18 16:10 Pulse Rate 78 07/22/18 16:10 Respiratory Rate 16 07/22/18 16:10 Blood Pressure 148/90 07/22/18 16:10 O2 Sat by Pulse Oximetry 98 07/22/18 16:10 Temperature 99.2 F 07/22/18 19:24 Pulse Rate 65 07/22/18 19:24 Respiratory Rate 16 07/22/18 19:24 Blood Pressure 145/91 07/22/18 19:24 O2 Sat by Pulse Oximetry 96 07/22/18 19:24 Oxygen Delivery Oxygen Delivery Room Air Medical Decision Making - Lab Data Result diagrams: 07/22/18 17:05 07/22/18 17:05 Lab Results 07/22/18 07/22/18 07/22/18 Range/Units 16:36 16:36 16:36 WBC (4.3-11.1) K/mcL RBC (3.82-4.97) M/mcL Hgb (11.5-15.4) g/dL Hct (35.3-44.9) % MCV (83.0-100.0) fL MCH (28.0-33.3) pg MCHC (31.6-35.5) g/dL RDW (11.5-14.5) % Plt Count (140-400) K/mcL MPV (9.4-12.4) fL Immature Gran % (0-4) % Seg Neutrophils % % Lymphocytes % % Monocytes % % Eosinophils % % Basophils % % Neutrophils # (1.6-8.9) K/mcL Lymphocytes # (0.6-4.6) K/mcL Monocytes # (0.0-1.3) K/mcL Eosinophils # (0.0-0.6) K/mcL Basophils # (0.0-0.2) K/mcL Sodium (136-145) mEq/L Potassium (3.5-5.1) mEq/L Chloride (98-107) mEq/L Carbon Dioxide (23-29) mEq/L BUN (6-20) mg/dL Creatinine (0.60-1.20) mg/dL Est GFR ( Amer) (> 60) Est GFR (Non-Af Amer) (> 60) BUN/Creatinine Ratio (6-26) Glucose (70-105) mg/dL Calculated Osmolality (280-300) Calcium (8.6-10.3) mg/dL Urine Color Yellow (Yellow) Urine Clarity Clear (Clear) Urine pH 6.5 (5.0-8.0) pH Units Ur Specific [place] 1.010 (1.010-1.025) Urine Protein Negative (Neg-Trace) mg/dL Urine Glucose (UA) Normal (Normal) mg/dL Urine Ketones Negative (Negative) mg/dL Urine Blood Moderate H (Negative) Urine Nitrite Negative (Negative) Urine Bilirubin Negative (Negative) Urine Urobilinogen Normal (Normal) mg/dL Ur Leukocyte Esterase Negative (Negative) Urine Microscopic RBC 5-15 H (0-3) per hpf Urine Microscopic WBC 0-3 (0-3) per hpf Ur Squamous Epith Cells Many H (None-Few) per lpf Urine Bacteria None Seen (None-Few) per hpf Hyaline Casts None Seen (None-Few) per lpf Urine Test Negative (Negative) Salicylates (15.0-30.0) mg/dL Urine Opiates Screen Negative (Jidpaj=483) ng/mL Acetaminophen (10-20) mcg/mL Ur Barbiturates Screen Negative (Jaheyd=328) ng/mL Ur Phencyclidine Scrn Negative (Cutoff=25) ng/mL Ur Amphetamines Screen Negative (Ruaurb=0089) ng/mL U Benzodiazepines Scrn Positive H (Uiimbf=589) ng/mL Urine Cocaine Screen Negative (Cutoff= 300) ng/mL U Marijuana (THC) Screen Positive H (Cutoff = 50) ng/mL Ur Drug Screen Interp See Below Ethyl Alcohol (Less than 10) mg/dL 07/22/18 07/22/18 Range/Units 17:05 17:05 WBC 10.7 (4.3-11.1) K/mcL RBC 4.44 (3.82-4.97) M/mcL Hgb 14.1 (11.5-15.4) g/dL Hct 41.0 (35.3-44.9) % MCV 92.3 (83.0-100.0) fL MCH 31.8 (28.0-33.3) pg MCHC 34.4 (31.6-35.5) g/dL RDW 12.3 (11.5-14.5) % Plt Count 345 (140-400) K/mcL MPV 10.0 (9.4-12.4) fL Immature Gran % 0.4 (0-4) % Seg Neutrophils % 67.1 % Lymphocytes % 24.4 % Monocytes % 6.6 % Eosinophils % 0.7 % Basophils % 0.8 % Neutrophils # 7.2 (1.6-8.9) K/mcL Lymphocytes # 2.6 (0.6-4.6) K/mcL Monocytes # 0.7 (0.0-1.3) K/mcL Eosinophils # 0.1 (0.0-0.6) K/mcL Basophils # 0.1 (0.0-0.2) K/mcL Sodium 138 (136-145) mEq/L Potassium 3.1 L (3.5-5.1) mEq/L Chloride 103 (98-107) mEq/L Carbon Dioxide 29 (23-29) mEq/L BUN 11 (6-20) mg/dL Creatinine 0.53 L (0.60-1.20) mg/dL Est GFR ( Amer) > 60 (> 60) Est GFR (Non-Af Amer) > 60 (> 60) BUN/Creatinine Ratio 21 (6-26) Glucose 129 H (70-105) mg/dL Calculated Osmolality 287 (280-300) Calcium 9.7 (8.6-10.3) mg/dL Urine Color (Yellow) Urine Clarity (Clear) Urine pH (5.0-8.0) pH Units Ur Specific [place] (1.010-1.025) Urine Protein (Neg-Trace) mg/dL Urine Glucose (UA) (Normal) mg/dL Urine Ketones (Negative) mg/dL Urine Blood (Negative) Urine Nitrite (Negative) Urine Bilirubin (Negative) Urine Urobilinogen (Normal) mg/dL Ur Leukocyte Esterase (Negative) Urine Microscopic RBC (0-3) per hpf Urine Microscopic WBC (0-3) per hpf Ur Squamous Epith Cells (None-Few) per lpf Urine Bacteria (None-Few) per hpf Hyaline Casts (None-Few) per lpf Urine Test (Negative) Salicylates < 2.5 L (15.0-30.0) mg/dL Urine Opiates Screen (Wtgqrk=470) ng/mL Acetaminophen < 10 L (10-20) mcg/mL Ur Barbiturates Screen (Uqmuid=861) ng/mL Ur Phencyclidine Scrn (Cutoff=25) ng/mL Ur Amphetamines Screen (Bdxxmn=9128) ng/mL U Benzodiazepines Scrn (Tegvfb=293) ng/mL Urine Cocaine Screen (Cutoff= 300) ng/mL U Marijuana (THC) Screen (Cutoff = 50) ng/mL Ur Drug Screen Interp Ethyl Alcohol < 10 (Less than 10) mg/dL
[2018-07-22] MEDS ORDERED: MOM Conc 10 ML UD.LIQ PO PRN (21:02)
[2018-07-22] MEDS ORDERED: traZODone 50 MG TABLET PO PRN (21:02)
[2018-07-22] MEDS ORDERED: *HR* LORazepam 2 MG/ML VIAL IM PRN (21:02)
[2018-07-22] MEDS ORDERED: Nicotine 2 MG GUM BC PRN (21:02)
[2018-07-22] MEDS ORDERED: Mag Hydrox/Al Hydrox/Simeth 30 ML UDC PO PRN (21:02)
[2018-07-22] MEDS ORDERED: FLUPHENAZINE 2.5 MG/ML IM PRN (21:08)
[2018-07-23] MEDS: Ibuprofen 400 MG TABLET PO PRN (05:07)
--- NOTE | 2018-07-23 09:14 | Psychiatry History & Physical ---
Date of Encounter: 07/23/18 Time of Encounter: 07:45 History of Present Illness Patient Stated Chief Complaint: "I don't know" Medicare Admission Attestation: For traditional Medicare patients the provided hospital inpatient services are reasonable and necessary and in the case of services not specified as inpatient-only under 42 CFR 419.22 (n), that they are appropriately provided as inpatient services in accordance 42 CFR 412.3. For Critical Access Hospital the patient may reasonably be expected to be discharged or transferred to a hospital within 96 hours after admission to the Critical Access Hospital. Admitted From: Emergency Dept Plans for Post Hospital Care: Home History of Present Illness: Ms. Lorenzana is a 33 year old female who presented to the emergency room on 213 after being discharged from the ER the night before. She reported continued psychosis with auditory hallucinations command at times telling her to kill herself as well as olfactory hallucinations of fire she was brought in by her mother who reported that she has been living with her for the past 3 weeks. She said the present to that the patient's boyfriend had been giving her excessive amounts of Xanax. She said that her daughter has been confused and very paranoid that people were trying to hurt her. She has had poor sleep. Since admission to our unit she wandered into the shower room and had a bowel movement on the shower chair than when she was redirected that that was not the toilet she tried to further defecate into the trashcan. This morning she continues to be very confused. She answers most of my questions with "maybe". She appears to be responding to internal stimuli. She is slow to respond and seems to have thought blocking. She is having abdominal discomfort and diarrhea but other than that has no signs of benzodiazepine withdrawal. Past Med Surg Social Fam HX - Past Medical History Medical history: cardiomyopathy, hepatitis - Past Psychiatric History Psychiatric history: Reports: bipolar, previous psychiatric hospitalization. Denies: prior suicide attempt Past psychiatric history details: She was admitted to [facility] in May 2016. At that time she was initially acutely intoxicated and having psychotic symptoms. As the drugs were out of her system she was aggressive and agitated throwing things. She did have to have a medical consult for somatic complaints. She was only on the unit for 3-4 days. She was discharged on her home medications of alprazolam. She says she has previously been linked with [facility] but has not been compliant with follow-up there for quite some time. She has been diagnosed with schizophrenia and bipolar disorder in the past. She could not name medication she has previously tried but she has a prazosin and haloperidol allergy so clearly she is tried that in the past. Family psychiatric history: No Family History of Suicide: None - Past Surgical History Surgical History: appendectomy, cholecystectomy - Social History Smoking Status: Current every day smoker Smokeless Tobacco Status: No Alcohol use: none Drug use: marijuana, prescription drug abuse, other Occupational status: unemployed Current living situation: With Family Activity Level: Independent ambulation Recent Out of Country Travel Within the Last 8 Weeks: No Exposure or Possible Exposure to Illness During Travel: No - Family History Grandmother Living Status: Still Living Hx Family Cardiac Disorders: Yes (Bypass surgery) Medications & Allergies No Known Home Drugs 07/22/18 [History] Allergy/AdvReac Type Severity Reaction Status Date / Time Amoxicillin [From Amoxil] Allergy Rash Verified 07/22/18 16:15 haloperidol [From Haldol] Allergy Rash Verified 07/22/18 16:15 ketorolac [From Toradol] Allergy Rash Verified 07/22/18 16:15 Penicillins [PCN] Allergy Rash Verified 07/22/18 16:15 Prazosin Allergy Rash Verified 07/22/18 16:15 Review of Systems Constitutional: Denies: fever Eyes: Denies: eye pain Ears, Nose, Throat: Denies: dysphagia Cardiovascular: Denies: chest pain Respiratory: Denies: cough Gastrointestinal: Reports: abdominal pain, diarrhea Genitourinary female: Denies: urgency Musculoskeletal: Denies: back pain Integumentary: Denies: rash Neurological: Reports: weakness Psychiatric: Reports: auditory hallucinations, visual hallucinations, confusion, difficulty concentrating, irritability Endocrine: Reports: fatigue Hematologic/Lymphatic: Denies: easy bleeding Allergic/Immunologic: Denies: facial swelling Exam - HEENT Head exam IM: Present: atraumatic Eye exam IM: Present: normal appearance ENT exam IM: Present: mucous membranes moist - Neurological Neurological exam: Present: CN II-XII intact (Grossly) - Respiratory Respiratory exam IM: Absent: respiratory distress - GI/Abdominal GI/Abdominal exam IM: Present: no peritoneal signs - Extremities Extremities exam IM: Present: full ROM - Skin Skin exam IM: Absent: cyanosis - Constitutional Vitals: Temp Pulse Resp BP Pulse Ox 99.0 F 72 16 148/98 96 07/23/18 04:00 07/23/18 04:00 07/23/18 04:00 07/23/18 04:00 07/23/18 00:00 General appearance: age & developmentally appropriate - Musculoskeletal Gait: slow Station: stooped Strength & Tone: mild weakness - Psychiatric Patient Orientation: Yes Person Level of alertness: Sedated Behavior: guarded, suspicious Psychomotor activity: Slowed Eye Contact: No Eye Contact Mood Description: Anxious Patient description of mood: "I do not know" Affect description: flat Speech Volume: Soft/Quiet Speech pattern: impoverished Language & Vocabulary: limited Thought Process: Thought Blocking Thought Content: No Suicidal ideation, No Homicidal ideation, Yes Paranoid delusion Perceptual Disturbances: Yes Auditory hallucinations, Yes Visual hallucinations Attention Span Ability: Unable to Focus, Unable to Sustain Attention Memory Description: Immediate Impaired, Recent Impaired, Remote Impaired Patient Reliability: Not Reliable Historian Fund of knowledge: Yes below average Intelligence Estimate: Below Average Judgment: Poor Insight: None Results - Drug Levels and Toxicology Drug Levels and Toxicology: Drug Levels and Toxicity 07/22/18 07/22/18 16:36 17:05 Urine Opiates Screen Negative Acetaminophen < 10 L Ur Barbiturates Screen Negative Ur Phencyclidine Scrn Negative Ur Amphetamines Screen Negative U Benzodiazepines Scrn Positive H Urine Cocaine Screen Negative U Marijuana (THC) Screen Positive H Ethyl Alcohol < 10 Lab Results 07/22/18 07/22/18 07/22/18 Range/Units 16:36 16:36 16:36 WBC (4.3-11.1) K/mcL RBC (3.82-4.97) M/mcL Hgb (11.5-15.4) g/dL Hct (35.3-44.9) % MCV (83.0-100.0) fL MCH (28.0-33.3) pg MCHC (31.6-35.5) g/dL RDW (11.5-14.5) % Plt Count (140-400) K/mcL MPV (9.4-12.4) fL Immature Gran % (0-4) % Seg Neutrophils % % Lymphocytes % % Monocytes % % Eosinophils % % Basophils % % Neutrophils # (1.6-8.9) K/mcL Lymphocytes # (0.6-4.6) K/mcL Monocytes # (0.0-1.3) K/mcL Eosinophils # (0.0-0.6) K/mcL Basophils # (0.0-0.2) K/mcL Sodium (136-145) mEq/L Potassium (3.5-5.1) mEq/L Chloride (98-107) mEq/L Carbon Dioxide (23-29) mEq/L BUN (6-20) mg/dL Creatinine (0.60-1.20) mg/dL Est GFR ( Amer) (> 60) Est GFR (Non-Af Amer) (> 60) BUN/Creatinine Ratio (6-26) Glucose (70-105) mg/dL Calculated Osmolality (280-300) Calcium (8.6-10.3) mg/dL Urine Color Yellow (Yellow) Urine Clarity Clear (Clear) Urine pH 6.5 (5.0-8.0) pH Units Ur Specific [place] 1.010 (1.010-1.025) Urine Protein Negative (Neg-Trace) mg/dL Urine Glucose (UA) Normal (Normal) mg/dL Urine Ketones Negative (Negative) mg/dL Urine Blood Moderate H (Negative) Urine Nitrite Negative (Negative) Urine Bilirubin Negative (Negative) Urine Urobilinogen Normal (Normal) mg/dL Ur Leukocyte Esterase Negative (Negative) Urine Microscopic RBC 5-15 H (0-3) per hpf Urine Microscopic WBC 0-3 (0-3) per hpf Ur Squamous Epith Cells Many H (None-Few) per lpf Urine Bacteria None Seen (None-Few) per hpf Hyaline Casts None Seen (None-Few) per lpf Urine Test Negative (Negative) Salicylates (15.0-30.0) mg/dL Urine Opiates Screen Negative (Gvmzqu=132) ng/mL Acetaminophen (10-20) mcg/mL Ur Barbiturates Screen Negative (Ctjfpf=318) ng/mL Ur Phencyclidine Scrn Negative (Cutoff=25) ng/mL Ur Amphetamines Screen Negative (Aarhra=9778) ng/mL U Benzodiazepines Scrn Positive H (Jshpll=101) ng/mL Urine Cocaine Screen Negative (Cutoff= 300) ng/mL U Marijuana (THC) Screen Positive H (Cutoff = 50) ng/mL Ur Drug Screen Interp See Below Ethyl Alcohol (Less than 10) mg/dL 07/22/18 07/22/18 Range/Units 17:05 17:05 WBC 10.7 (4.3-11.1) K/mcL RBC 4.44 (3.82-4.97) M/mcL Hgb 14.1 (11.5-15.4) g/dL Hct 41.0 (35.3-44.9) % MCV 92.3 (83.0-100.0) fL MCH 31.8 (28.0-33.3) pg MCHC 34.4 (31.6-35.5) g/dL RDW 12.3 (11.5-14.5) % Plt Count 345 (140-400) K/mcL MPV 10.0 (9.4-12.4) fL Immature Gran % 0.4 (0-4) % Seg Neutrophils % 67.1 % Lymphocytes % 24.4 % Monocytes % 6.6 % Eosinophils % 0.7 % Basophils % 0.8 % Neutrophils # 7.2 (1.6-8.9) K/mcL Lymphocytes # 2.6 (0.6-4.6) K/mcL Monocytes # 0.7 (0.0-1.3) K/mcL Eosinophils # 0.1 (0.0-0.6) K/mcL Basophils # 0.1 (0.0-0.2) K/mcL Sodium 138 (136-145) mEq/L Potassium 3.1 L (3.5-5.1) mEq/L Chloride 103 (98-107) mEq/L Carbon Dioxide 29 (23-29) mEq/L BUN 11 (6-20) mg/dL Creatinine 0.53 L (0.60-1.20) mg/dL Est GFR ( Amer) > 60 (> 60) Est GFR (Non-Af Amer) > 60 (> 60) BUN/Creatinine Ratio 21 (6-26) Glucose 129 H (70-105) mg/dL Calculated Osmolality 287 (280-300) Calcium 9.7 (8.6-10.3) mg/dL Urine Color (Yellow) Urine Clarity (Clear) Urine pH (5.0-8.0) pH Units Ur Specific [place] (1.010-1.025) Urine Protein (Neg-Trace) mg/dL Urine Glucose (UA) (Normal) mg/dL Urine Ketones (Negative) mg/dL Urine Blood (Negative) Urine Nitrite (Negative) Urine Bilirubin (Negative) Urine Urobilinogen (Normal) mg/dL Ur Leukocyte Esterase (Negative) Urine Microscopic RBC (0-3) per hpf Urine Microscopic WBC (0-3) per hpf Ur Squamous Epith Cells (None-Few) per lpf Urine Bacteria (None-Few) per hpf Hyaline Casts (None-Few) per lpf Urine Test (Negative) Salicylates < 2.5 L (15.0-30.0) mg/dL Urine Opiates Screen (Ukyqzh=335) ng/mL Acetaminophen < 10 L (10-20) mcg/mL Ur Barbiturates Screen (Nfoaec=954) ng/mL Ur Phencyclidine Scrn (Cutoff=25) ng/mL Ur Amphetamines Screen (Psobpi=0105) ng/mL U Benzodiazepines Scrn (Ttpizl=992) ng/mL Urine Cocaine Screen (Cutoff= 300) ng/mL U Marijuana (THC) Screen (Cutoff = 50) ng/mL Ur Drug Screen Interp Ethyl Alcohol < 10 (Less than 10) mg/dL - Labs Labs: Laboratory Last Values WBC 10.7 K/mcL (4.3-11.1) 07/22/18 17:05 RBC 4.44 M/mcL (3.82-4.97) 07/22/18 17:05 Hgb 14.1 g/dL (11.5-15.4) 07/22/18 17:05 Hct 41.0 % (35.3-44.9) 07/22/18 17:05 MCV 92.3 fL (83.0-100.0) 07/22/18 17:05 MCH 31.8 pg (28.0-33.3) 07/22/18 17:05 MCHC 34.4 g/dL (31.6-35.5) 07/22/18 17:05 RDW 12.3 % (11.5-14.5) 07/22/18 17:05 Plt Count 345 K/mcL (140-400) 07/22/18 17:05 MPV 10.0 fL (9.4-12.4) 07/22/18 17:05 Immature Gran % 0.4 % (0-4) 07/22/18 17:05 Seg Neutrophils % 67.1 % 07/22/18 17:05 24.4 % 07/22/18 17:05 6.6 % 07/22/18 17:05 0.7 % 07/22/18 17:05 0.8 % 07/22/18 17:05 7.2 K/mcL (1.6-8.9) 07/22/18 17:05 2.6 K/mcL (0.6-4.6) 07/22/18 17:05 0.7 K/mcL (0.0-1.3) 07/22/18 17:05 0.1 K/mcL (0.0-0.6) 07/22/18 17:05 0.1 K/mcL (0.0-0.2) 07/22/18 17:05 Sodium 138 mEq/L (136-145) 07/22/18 17:05 Potassium 3.1 mEq/L (3.5-5.1) L 07/22/18 17:05 Chloride 103 mEq/L (98-107) 07/22/18 17:05 Carbon Dioxide 29 mEq/L (23-29) 07/22/18 17:05 BUN 11 mg/dL (6-20) 07/22/18 17:05 0.53 mg/dL (0.60-1.20) L 07/22/18 17:05 Est GFR ( Amer) > 60 (> 60) 07/22/18 17:05 Est GFR (Non-Af Amer) > 60 (> 60) 07/22/18 17:05 21 (6-26) 07/22/18 17:05 Glucose 129 mg/dL (70-105) H 07/22/18 17:05 287 (280-300) 07/22/18 17:05 Calcium 9.7 mg/dL (8.6-10.3) 07/22/18 17:05 Yellow (Yellow) 07/22/18 16:36 Clear (Clear) 07/22/18 16:36 6.5 pH Units (5.0-8.0) 07/22/18 16:36 Ur Specific [place] 1.010 (1.010-1.025) 07/22/18 16:36 Negative mg/dL (Neg-Trace) 07/22/18 16:36 Normal mg/dL (Normal) 07/22/18 16:36 Negative mg/dL (Negative) 07/22/18 16:36 Moderate (Negative) H 07/22/18 16:36 Negative (Negative) 07/22/18 16:36 Negative (Negative) 07/22/18 16:36 Normal mg/dL (Normal) 07/22/18 16:36 Ur Leukocyte Esterase Negative (Negative) 07/22/18 16:36 5-15 per hpf (0-3) H 07/22/18 16:36 0-3 per hpf (0-3) 07/22/18 16:36 Ur Squamous Epith Cells Many per lpf (None-Few) H 07/22/18 16:36 None Seen per hpf (None-Few) 07/22/18 16:36 Hyaline Casts None Seen per lpf (None-Few) 07/22/18 16:36 Negative (Negative) 07/22/18 16:36 Salicylates < 2.5 mg/dL (15.0-30.0) L 07/22/18 17:05 Negative ng/mL (Skbaei=781) 07/22/18 16:36 Acetaminophen < 10 mcg/mL (10-20) L 07/22/18 17:05 Ur Barbiturates Screen Negative ng/mL (Lqnjxz=971) 07/22/18 16:36 Ur Phencyclidine Scrn Negative ng/mL (Cutoff=25) 07/22/18 16:36 Ur Amphetamines Screen Negative ng/mL (Flflhz=6498) 07/22/18 16:36 U Benzodiazepines Scrn Positive ng/mL (Uhdmfa=216) H 07/22/18 16:36 Negative ng/mL (Cutoff= 300) 07/22/18 16:36 U Marijuana (THC) Screen Positive ng/mL (Cutoff = 50) H 07/22/18 16:36 Ur Drug Screen Interp See Below 07/22/18 16:36 Ethyl Alcohol < 10 mg/dL (Less than 10) 07/22/18 17:05 - Impressions Impressions Chest/Abdomen X-ray 07/22/18 17:00 IMPRESSION: No acute process in the chest. Nonobstructive bowel gas pattern. No free air. D/ / Ina Ribeiro MD / Ina Ribeiro MD Interpreting Provider: Ina Ribeiro MD Assessment and Plan (1) Schizophrenia Current visit: Yes Status: Acute Plan: Admit inpatient for safety and stabilization, Close observation, Suicide Precautions per unit protocol, Encourage participation in unit milieu, Group Therapy, Monitor sleep, Monitor appetite Additional Plan: We will monitor with every 4 hours while awake for any signs of benzodiazepine withdrawal although it seems as been quite a while since she has had this consistently her screen was positive for it. We will start Risperdal 1 mg by mouth twice a day for psychosis. Reviewed Interval hx Review any current labs Pt had an opportunity to ask questions and discuss current treatment plan. Supportive therapy was provided Pt encouraged to consider group or individual therapy Pt was in agreement with treatment plan. Pt was educated on the risks benefits and side effects of current medications and alternatives as well as the risks and benefits of no medication. AIMS = 0 lipids and hgba1c Risks, benefits, side effects, alternatives discussed w/pt: Yes Patient agreeable to treatment: Yes Plans for Post Hospital Care: Home Estimated Length of Stay (Days): 5 Qualifiers: Schizophrenia type: paranoid schizophrenia Qualified Code(s): F20.0 - Paranoid schizophrenia
[2018-07-23] MEDS: risperiDONE 1 MG TABLET PO SCH ×2 (10:49→20:57)
[2018-07-23 10:58] LABS: Estimated Average Glucose 117 mg/dl
[2018-07-23 11:07] LABS: Chol/HDL Ratio 2.8 (0-4.9)
[2018-07-23 11:19] LABS: Thyroid Stimulating Hormone 0.632 mcIU/mL (0.340-5.600)
[2018-07-23] MEDS: hydrOXYzine pamoate 25 MG CAPSULE PO PRN (20:57)
[2018-07-24] MEDS: Ibuprofen 400 MG TABLET PO PRN (07:41)
--- NOTE | 2018-07-24 08:57 | Psychiatry Progress Note ---
Date of Encounter: 07/24/18 Time of Encounter: 08:30 Subjective Interval history: Patient continues to be very confused. She says she is hearing auditory hallucinations telling her that she needs to . She reports that she did take the medications. Nursing staff said that she got mad after taking them but would not talk with him about why she was upset. She reports feeling hopeless. Review of Systems Psychiatric: Reports: auditory hallucinations, visual hallucinations, confusion, difficulty concentrating, irritability Results - Vital Signs Vital Signs: Temp Pulse Resp BP Pulse Ox 99 F 70 18 134/87 97 07/23/18 22:00 07/23/18 22:00 07/23/18 22:00 07/23/18 22:00 07/23/18 22:00 - Labs Labs: Laboratory Results - last 24 hr 07/23/18 07/23/18 07/23/18 09:19 09:19 09:19 Est Mean Plasma Glucose 117 Hemoglobin A1c 5.7 H Triglycerides 76 Cholesterol 147 LDL Cholesterol, Calc 79 VLDL Cholesterol, Calc 15 HDL Cholesterol 53 Cholesterol/HDL Ratio 2.8 TSH 0.632 T.pallidum Ab Interpret Negative - Impressions ITS Impressions Chest/Abdomen X-ray 07/22/18 17:00 IMPRESSION: No acute process in the chest. Nonobstructive bowel gas pattern. No free air. D/ / Ina Ribeiro MD / Ina Ribeiro MD Interpreting Provider: Ina Ribeiro MD Assessment and Plan (1) Schizophrenia Current visit: Yes Status: Acute Plan: Continue hospitalization, Close observation, Suicide Precautions per unit protocol, Encourage participation in unit milieu, Group Therapy, Monitor sleep, Monitor appetite Additional Plan: Continue respite all. Encourage groups. Discharge planning begun by therapist. Risks, benefits, side effects, alternatives discussed w/pt: Yes Patient agreeable to treatment: Yes Qualifiers: Schizophrenia type: paranoid schizophrenia Qualified Code(s): F20.0 - Paranoid schizophrenia Consult Discharge Plan - Plan Referrals: NONE,PCP [Primary Care Provider] - Psychiatry Exam - Constitutional Vitals: Temp Pulse Resp BP Pulse Ox 99 F 70 18 134/87 97 07/23/18 22:00 07/23/18 22:00 07/23/18 22:00 07/23/18 22:00 07/23/18 22:00 General appearance: disheveled - Musculoskeletal Gait: slow Station: stooped Strength & Tone: mild weakness - Psychiatric Patient Orientation: Yes Person Level of alertness: Alert Behavior: suspicious Psychomotor activity: Slowed Eye Contact: Minimal Contact Mood Description: Anxious Patient description of mood: "I do not know" Affect description: inappropriate to situation Speech Volume: Soft/Quiet Speech pattern: impoverished Language & Vocabulary: limited Thought Process: Thought Blocking Thought Content: Yes Paranoid delusion Perceptual Disturbances: Yes Auditory hallucinations Attention Span Ability: Unable to Focus, Unable to Sustain Attention Memory Description: Immediate Impaired, Recent Impaired, Remote Impaired Patient Reliability: Questionable Historian Fund of knowledge: Yes below average Intelligence Estimate: Below Average Judgment: Poor Insight: None
[2018-07-24] MEDS: risperiDONE 1 MG TABLET PO SCH ×2 (09:37→20:44)
[2018-07-24] MEDS: hydrOXYzine pamoate 25 MG CAPSULE PO PRN (13:31)
[2018-07-24] MEDS: *HR* LORazepam 1 MG TABLET PO PRN (16:51)
[2018-07-25] MEDS: Ibuprofen 400 MG TABLET PO PRN ×2 (04:49→08:50)
[2018-07-25] MEDS: hydrOXYzine pamoate 25 MG CAPSULE PO PRN ×2 (06:05→09:54)
[2018-07-25] MEDS: risperiDONE 1 MG TABLET PO SCH ×3 (08:30→21:00)
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
[2018-07-25] MEDS: *HR* LORazepam 1 MG TABLET PO PRN (12:17)
[2018-07-25] MEDS: Nicotine 21 MG PATCH.TD24 TD SCH (15:17)
[2018-07-26] MEDS: Ibuprofen 400 MG TABLET PO PRN ×3 (06:56→23:46)
[2018-07-26] MEDS: hydrOXYzine pamoate 25 MG CAPSULE PO PRN ×3 (06:57→23:47)
[2018-07-26] MEDS: Nicotine 21 MG PATCH.TD24 TD SCH (08:40)
[2018-07-26] MEDS: risperiDONE 1 MG TABLET PO SCH ×2 (08:40→21:07)
--- NOTE | 2018-07-26 09:09 | Psychiatry Progress Note ---
Date of Encounter: 07/26/18 Time of Encounter: 08:35 Subjective Interval history: Patient is doing better. Still confused but able to make a joke and fllow the conversation better. We may be nearing her baseline. She continues t have hallucinations but they are non-command. Review of Systems Psychiatric: Reports: auditory hallucinations, confusion, difficulty concentrating Results - Vital Signs Vital Signs: Temp Pulse Resp BP Pulse Ox 98.3 F 86 19 125/85 100 07/26/18 08:00 07/26/18 08:00 07/26/18 08:00 07/26/18 08:00 07/26/18 08:00 - Impressions ITS Impressions Chest/Abdomen X-ray 07/22/18 17:00 IMPRESSION: No acute process in the chest. Nonobstructive bowel gas pattern. No free air. D/ / Ina Ribeiro MD / Ina Ribeiro MD Interpreting Provider: Ina Ribeiro MD Assessment and Plan (1) Schizophrenia Current visit: Yes Status: Acute Plan: Continue hospitalization, Close observation, Suicide Precautions per unit protocol, Encourage participation in unit milieu, Group Therapy, Monitor sleep, Monitor appetite Additional Plan: Consider further increase in Risperdal. Encourage group attendance. Therapist to call her mother for more details. Risks, benefits, side effects, alternatives discussed w/pt: Yes Patient agreeable to treatment: Yes Qualifiers: Schizophrenia type: paranoid schizophrenia Qualified Code(s): F20.0 - Paranoid schizophrenia Consult Discharge Plan - Plan Referrals: NONE,PCP [Primary Care Provider] - Psychiatry Exam - Constitutional Vitals: Temp Pulse Resp BP Pulse Ox 98.3 F 86 19 125/85 100 07/26/18 08:00 07/26/18 08:00 07/26/18 08:00 07/26/18 08:00 07/26/18 08:00 General appearance: disheveled - Musculoskeletal Gait: slow Station: stooped Strength & Tone: normal for patient - Psychiatric Patient Orientation: Yes Person, Yes Time, Yes Place Level of alertness: Alert Behavior: withdrawn Psychomotor activity: Slowed Eye Contact: Minimal Contact Mood Description: Other Patient description of mood: confused Speech Volume: Soft/Quiet Speech pattern: impoverished Language & Vocabulary: limited Thought Process: Disorganized Thought Content: No Suicidal ideation, No Homicidal ideation Perceptual Disturbances: Yes Auditory hallucinations, No Visual hallucinations Attention Span Ability: Unable to Focus, Unable to Sustain Attention Memory Description: Immediate Impaired, Recent Impaired, Remote Impaired Patient Reliability: Questionable Historian Fund of knowledge: Yes average Intelligence Estimate: Average Judgment: Limited Insight: Minimal
[2018-07-27] MEDS: Nicotine 21 MG PATCH.TD24 TD SCH (08:20)
[2018-07-27] MEDS: risperiDONE 1 MG TABLET PO SCH (08:21)
[2018-07-27] MEDS: hydrOXYzine pamoate 25 MG CAPSULE PO PRN (08:58)
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
[2018-07-27 12:51] VITALS: BP 114/84
== END 2018-07-27 12:50 | disposition home or self-care (01) | DRG 750 ==
LOC: EMEROOARM 16:05 → 1ANU 20:42
PROVIDERS: ADMIT Psychiatry & Neurology Psychiatry; ATTEND Psychiatry & Neurology Psychiatry